=== PATIENT | female | born 1985 | race Caucasian/White ===

== ENCOUNTER 2022-10-27 22:17 | Emergency (ER) | payer OTHER, SELFPAY ==
[2022-10-27 22:19] VITALS: BP 206/115; PULSE 115; RESP 18; TEMP 36.9; O2SAT 97; BMI 37.5
[2022-10-28 00:06] VITALS: BP 168/112; PULSE 122; RESP 18; O2SAT 96
[2022-10-28 00:19] LABS: Add Urine Microscopic? YES; Bilirubin Urine Neg (Negative); Blood Urine 2+ (Negative); Glucose Urine UA Norm (Normal); Ketones Urine Negative (Negative); Leukocyte Esterase Urine 2+ (Negative); Nitrate Urine Negative (Negative); Protein Urine 3+ (Negative); Urine Appearance Cloudy (CLEAR); Urine Color Yellow (Yellow); Urobilinogen Urine Norm (Negative); pH Urine 5 (5-7)
[2022-10-28 00:20] LABS: Bacteria Urine 1+ /hpf; RBC Urine 0-4 /hpf (0-2); Squamous Epithelial Cell Urine 25-40 /hpf (0-5); WBC Urine 55-80 /hpf (0-5)
[2022-10-28 00:22] LABS: Add Urine Culture? No
[2022-10-28 00:34] LABS: HCG, Serum Qual Negative (Negative)
[2022-10-28] MEDS: ondansetron 2 mg/ML SDV 2 mL 8 MG IVP (00:35)
[2022-10-28 00:37] VITALS: PULSE 105; RESP 16; O2SAT 95
[2022-10-28 00:43] LABS: Alanine Aminotransferase 18 U/L (0-33); Albumin Level 3.6 g/dL (3.5-5.2); Alkaline Phosphatase 74 U/L (35-105); Blood Urea Nitrogen 22 mg/dL (6-20); Calcium 10.2 mg/dL (8.5-10.5); Carbon Dioxide 20 mmol/L (22-29); Chloride 101 mmol/L (98-107); Creatinine Clr Calc Pharmacy 122.3645; Globulin 3.1 g/dL (1.3-4.6); Glomerular Filtration Rate 80.7 mL/min (90-130); Glucose 120 mg/dL (65-115); Lipase 24 U/L (13-60); Osmolality Calculated 289 mOsm/kg (285-295); Sodium 137 mmol/L (136-145); Total Bilirubin 0.2 mg/dL (0.15-1.2); Total Protein 6.7 g/dL (6.6-8.7)
--- NOTE | 2022-10-28 00:44 | W.ED.ABDPA2 ---
HPI - Abdominal Pain General: Chief Complaint: Abdominal Pain Stated Complaint: Abd pain, vomiting Time Seen by Provider: 10/28/22 00:03 History of Present Illness: Presents to the ER with complaints of pancreatitis flareup. She is having nausea vomiting and abdominal pain similar to the ones previous in the past. Patient has had been admitted for these before. Patient states this is exact like once in the past with no difference. This been going on for about 3 to 4 days and continuously gets worse. Patient has tried a clear liquid diet to no avail. Review of Systems General: Reports: 10 or more systems reviewed and unremarkable except in HPI and below Physical Exam Const: COMMON NORMALS: no acute distress, average body habitus, patient oriented x3, no limitations, healthy appearing, alert and well nourished HENMT: COMMON NORMALS: normocephalic, atraumatic, hearing grossly normal bilaterally, external ears normal, Normal external nose present and moist oral mucous membranes HEAD & SCALP: normocephalic and atraumatic NOSE: Normal external nose present EXTERNAL EAR: Yes external ears normal Eye: COMMON NORMALS: Equal, round and reactive pupils present, EOMs intact bilaterally, conjunctivae normal and no scleral icterus CONJUNCTIVA: Yes conjunctivae normal PUPIL: Yes Equal, round and reactive pupils present Neck/C-Spine: COMMON NORMALS: full ROM, no lymphadenopathy, supple, no meningeal signs, no JVD and Thyroid normal THYROID: Thyroid normal Chest: COMMONS NORMALS: normal inspection of the chest and normal palpation of entire chest wall Resp: COMMON NORMALS: normal respiratory effort, No retractions, No use of accessory muscles and clear to auscultation bilaterally AUSCULTATION: clear to auscultation bilaterally Cardio: COMMON NORMALS: no JVD, regular rate, regular rhythm, S1 normal heart sound present, S2 normal heart sound present, No gallops present (Cardio), No clicks present (Cardio), No murmurs present (Cardio) and No rub (Cardio) RATE: regular rate RHYTHM: regular rhythm HEART SOUNDS: S1 normal heart sound present and S2 normal heart sound present GI: COMMON NORMALS: Normal to inspection, nondistended, normoactive bowel sounds present, Soft to palpation, No hepatosplenomegaly present and no masses PALPATION: Yes Soft to palpation, Yes Tenderness to palpation present (GI) and Yes No hepatosplenomegaly present : COMMON NORMALS: Yes no CVA tenderness BLADDER/KIDNEY EXAM: Yes no CVA tenderness Back/Pelvis: COMMON NORMALS: no CVA tenderness Neuro: COMMON NORMALS: patient oriented x3 SENSORIUM/ORIENTATION: Yes alert MENINGEAL SIGNS: Yes no meningeal signs Course Vital Signs: Vital signs: Vital Signs Temperature 98.4 F 10/27/22 22:19 Pulse Rate 93 10/28/22 01:44 Respiratory Rate 23 H 10/28/22 01:44 Blood Pressure 179/92 10/28/22 01:44 Pulse Oximetry 97 10/28/22 01:44 Oxygen Delivery Me thod Room Air 10/27/22 22:19 MDM - Abdominal Pain Medical Decision Making Patient presents to the ER with complaints of abdominal pain nausea vomiting consistent with her previous attacks of acute pancreatitis. Is been going on for 3 to 4 days patient has tried liquid diet. With no avail. Physical exam was performed lab work was obtained which showed white count 13.4 and normal lipase. Contaminated urine sample. Patient was given Toradol and fentanyl for pain as well as Zofran for nausea. Patient is feeling much better after 1 L bolus normal saline. Patient is agreeable to go home. Patient be discharged home Differential Diagnosis Likely abdominal pain and pancreatitis; Unlikely acute appendicitis, calculus of kidney, constipation, diverticulitis, endometriosis, gastroenteritis or small bowel obstruction Medical Records I reviewed the patient's medical records. Lab Data I reviewed the patient's lab results. 10/28/22 00:40 10/27/22 23:37 Labs/Radiology: Laboratory Results WBC 13.4 10^3/uL (4.0-10.0) H 10/28/22 00:40 Corrected WBC Cancelled 10/27/22 23:37 RBC 4.31 10^6/uL (4.1-5.3) 10/28/22 00:40 Hgb 12.7 g/dL (11.5-15.3) 10/28/22 00:40 Hct 37.3 % (37.0-47.0) 10/28/22 00:40 MCV 86.5 fl (81-99) 10/28/22 00:40 MCH 29.5 pg (28.0-34.0) 10/28/22 00:40 MCHC 34.0 g/dL (30.0-36.0) 10/28/22 00:40 RDW 13.0 % (12.1-15.1) 10/28/22 00:40 Plt Count 406 10^3/cmm (130-400) H 10/28/22 00:40 MPV 8.8 fL (7.4-10.4) 10/28/22 00:40 Gran % Cancelled 10/27/22 23:37 Neut % (Auto) 70.6 % 10/28/22 00:40 Lymph % (Auto) 21.6 % 10/28/22 00:40 [place] % (Auto) 4.9 % 10/28/22 00:40 Eos % (Auto) 1.6 % 10/28/22 00:40 Baso % (Auto) 0.6 % 10/28/22 00:40 Neut # (Auto) 9.42 10^3/uL (1.8-7.7) H 10/28/22 00:40 Lymph # (Auto) 2.9 10^3/uL (0.8-4.8) 10/28/22 00:40 [place] # (Auto) 0.7 10^3/uL (0.2-0.9) 10/28/22 00:40 Eos # (Auto) 0.2 10^3/uL (0.0-0.8) 10/28/22 00:40 Baso # (Auto) 0.1 10^3/uL (0.0-0.1) 10/28/22 00:40 Absolute Gran (auto) Cancelled 10/27/22 23:37 Nucleated RBC % (auto) 0 % 10/28/22 00:40 Nucleated RBCs # 0.0 /100WBC 10/28/22 00:40 Sodium 137 mmol/L (136-145) 10/27/22 23:37 Potassium 4.3 mmol/L (3.5-5.1) 10/27/22 23:37 Chloride 101 mmol/L (98-107) 10/27/22 23:37 Carbon Dioxide 20 mmol/L (22-29) L 10/27/22 23:37 Anion Gap 20.3 (5-19) H 10/27/22 23:37 BUN 22 mg/dL (6-20) H 10/27/22 23:37 Creatinine 0.8 mg/dL (0.5-0.9) 10/27/22 23:37 GFR Calculation 80.7 mL/min (90-130) L 10/27/22 23:37 Glucose 120 mg/dL (65-115) H 10/27/22 23:37 Calculated Osmolality 289 mOsm/kg (285-295) 10/27/22 23:37 Calcium 10.2 mg/dL (8.5-10.5) 10/27/22 23:37 Total Bilirubin 0.2 mg/dL (0.15-1.2) 10/27/22 23:37 AST 21 U/L (0-32) 10/27/22 23:37 ALT 18 U/L (0-33) 10/27/22 23:37 Alkaline Phosphatase 74 U/L (35-105) 10/27/22 23:37 Total Protein 6.7 g/dL (6.6-8.7) 10/27/22 23:37 Albumin 3.6 g/dL (3.5-5.2) 10/27/22 23:37 Globulin 3.1 g/dL (1.3-4.6) 10/27/22 23:37 Lipase 24 U/L (13-60) 10/27/22 23:37 HCG, Qual Negative (Negative) 10/27/22 23:37 Urine Color Yellow (Yellow) 10/27/22 Unknown Urine Appearance Cloudy (CLEAR) A 10/27/22 Unknown Urine pH 5 (5-7) 10/27/22 Unknown Ur Specific [place] 1.020 (1.005-1.030) 10/27/22 Unknown Urine Protein 3+ (Negative) H 10/27/22 Unknown Urine Glucose (UA) Norm (Normal) 10/27/22 Unknown Urine Ketones Negative (Negative) 10/27/22 Unknown Urine Blood 2+ (Negative) H 10/27/22 Unknown Urine Nitrate Negative (Negative) 10/27/22 Unknown Urine Bilirubin Neg (Negative) 10/27/22 Unknown Urine Urobilinogen Norm mg/dL (Negative) 10/27/22 Unknown Ur Leukocyte Esterase 2+ (Negative) H 10/27/22 Unknown Urine RBC 0-4 /hpf (0-2) H 10/27/22 Unknown Urine WBC 55-80 /hpf (0-5) H 10/27/22 Unknown Ur Squamous Epith Cells 25-40 /hpf (0-5) H 10/27/22 Unknown Amorphous Sediment Not Reportable 10/27/22 Unknown Urine Bacteria 1+ /hpf (NONE) H 10/27/22 Unknown Urine Yeast 1+ /hpf H 10/27/22 Unknown Discharge Plan Discharge Patient Disposition: Home Clinical Impression: Nausea & vomiting Qualifiers: Vomiting type: unspecified Qualified Code(s): R11.2 - Nausea with vomiting, unspecified Abdominal pain Qualifiers: Abdominal location: unspecified location Qualified Code(s): R10.9 - Unspecified abdominal pain Condition: Stable Discharge Orders: Discharge ED (Routine); Ordered 10/28/22 Ordered By: Twan Tello Discharge Diet: Advance as tolerated and Clear Liquid Discharge Activity: Resume usual activity Patient Instructions: Abdominal Pain (ED) Activity Restrictions/Additional Instructions: Please resume your usual activity advance your diet as tolerated. Please start with a clear liquid diet work your way to a full liquid diet then soft mechanical onto a normal diet. If you have any uncontrolled nausea vomiting abdominal pain feel free to follow back up with your family practice doc and/or return to emergency room for further evaluation and treatment. Coding Level of Care Code ED Clock And Watch Assembler for [facility] To
[2022-10-28 00:45] LABS: Anion Gap 20.3 (5-19); Aspartate Amino Transferase 21 U/L (0-32); Potassium 4.3 mmol/L (3.5-5.1)
[2022-10-28 00:46] LABS: Basophils # 0.1 10^3/uL (0.0-0.1); Basophils % 0.6 %; Eosinophils # 0.2 10^3/uL (0.0-0.8); Eosinophils % 1.6 %; Hematocrit 37.3 % (37.0-47.0); Hemoglobin 12.7 g/dL (11.5-15.3); Lymphocytes # 2.9 10^3/uL (0.8-4.8); Lymphocytes % 21.6 %; Mean Corpuscular Hemoglobin 29.5 pg (28.0-34.0); Mean Corpuscular Volume 86.5 fl (81-99); Mean Platelet Volume 8.8 fL (7.4-10.4); Monocytes # 0.7 10^3/uL (0.2-0.9); Monocytes % 4.9 %; Neutrophils # 9.42 10^3/uL (1.8-7.7); Neutrophils % 70.6 %; Nucleated Red Blood Cells % 0 %; Platelet Count 406 10^3/cmm (130-400); Red Blood Count 4.31 10^6/uL (4.1-5.3); White Blood Count 13.4 10^3/uL (4.0-10.0)
[2022-10-28] MEDS: ketorolac 30 mg/mL INJ IVP (01:18)
[2022-10-28] MEDS: sodium chloride 0.9% 1,000 ML 999 ML IV (01:18)
[2022-10-28 01:43] VITALS: RESP 21
[2022-10-28] MEDS: fentaNYL 50 mcg/mL INJ 2mL IVP (01:43)
[2022-10-28 01:44] VITALS: BP 179/92; PULSE 93; RESP 23; O2SAT 97
[2022-10-28 03:12] VITALS: BP 179/109; PULSE 89; RESP 20; O2SAT 95
--- NOTE | 2022-10-28 13:16 | DCPLANNER ---
TCM called patient due to no primary care physician - patient does not live in the area.
== END 2022-10-28 03:13 | disposition home or self-care (01) ==
PROVIDERS: Nurse Practitioner Family; Emergency Provider Emergency Medicine
DX: R11.2 Nausea with vomiting, unspecified (principal); R10.9 Unspecified abdominal pain
CPT/HCPCS: 80053; 81001; 81003; 83690; 84703; 85025; 96374; 96375; 99284; J1885; J2405; J3010; J7030

== ENCOUNTER 2023-03-10 23:59 | Inpatient (IN) | payer OTHER, SELFPAY ==
[2023-03-11] VITALS (67 sets, daily range): BP systolic 104–216; BP diastolic 61–124; PULSE 112–141; RESP 11–41; TEMP 37.1–39.6; O2SAT 88–97; BMI 43.0
--- NOTE | 2023-03-11 00:04 | CTR_ITS ---
PROCEDURE INFORMATION: Exam: CT Head Without Contrast Exam date and time: 03/11/2023 12:26 AM Age: 37 years old Clinical indication: Altered mental status/memory loss; Confusion or disorientation; Patient HX: Patient arrived via EMS initially for possible stroke. Patient appears to be in acute delirium with glucose over 500. TECHNIQUE: Imaging protocol: Computed tomography of the head without contrast. Radiation optimization: All CT scans at this facility use at least one of these dose optimization techniques: automated exposure control; mA and/or kV adjustment per patient size (includes targeted exams where dose is matched to clinical indication); or iterative reconstruction. REPORTING DATA: Count of CT and Cardiac NM exams in prior 12 months: This patient has received 0 known CTs and 0 known cardiac nuclear medicine studies in the 12 months prior to the current study. COMPARISON: No relevant prior studies available. RADIATION DOSE METRICS: Total DLP (mGy-cm): 881.88 FINDINGS: Brain: No acute intracranial hemorrhage or mass effect. No definite acute infarct by CT. MRI would be more sensitive/specific for detection, as clinically directed. Cerebral ventricles: Ventricle size is normal for age. Paranasal sinuses: 20 mm retention cyst or polyp in the inferior right maxillary sinus. Minimal mucosal thickening in the sphenoid sinus. Mastoid air cells: No significant acute finding. Bones/joints: No definite acute skull fracture. Soft tissues: No significant acute finding. CT/CT head wo con* [id number] IMPRESSION: 1. No acute intracranial hemorrhage or mass effect. 2. No definite acute infarct by CT, see above. 3. Other findings discussed above.
--- NOTE | 2023-03-11 00:10 | ED_ITS ---
HPI - Altered Mental Status General: Chief Complaint: Altered Mental Status Stated Complaint: CONFUSED Time Seen by Provider: 03/11/23 00:10 History of Present Illness: 37-year-old female presents emergency department with her spouse. Spouse states that she has been having chronic back pain for many years but over the last 4 days has not been moving around very much because of her chronic back pain. He states he also is a insulin-dependent diabetic and that her insulin pump mal functioned 3 days ago and they removed it. The patient states that she may have also taken a delta 8 gummy to try to control her pain. He states that she has had a change in mental status that he initially noted at approximately 11 PM tonight. He states the patient is confused after waking up from sleep. He states that she is confused to her location but is responsive to person. He states that she has a longstanding history of chronic pancreatitis. He denies known injury or trauma to the patient. He states that she does not take recreational or illicit drugs and she does not drink. Review of Systems General: Reports: ROS unobtainable due to medical condition Physical Exam Const: ORIENTATION/CONSCIOUSNESS: Yes oriented to person and Yes confused; not oriented to place and not oriented to time HENMT: COMMON NORMALS: normocephalic, atraumatic and moist oral mucous membranes HEAD & SCALP: normocephalic and atraumatic Eye: COMMON NORMALS: Equal, round and reactive pupils present and EOMs intact bilaterally PUPIL: Yes Equal, round and reactive pupils present Neck/C-Spine: COMMON NORMALS: full ROM, no lymphadenopathy, supple and no meningeal signs Chest: COMMONS NORMALS: normal inspection of the chest and normal palpation of entire chest wall Resp: COMMON NORMALS: normal respiratory effort, No use of accessory muscles and clear to auscultation bilaterally AUSCULTATION: clear to auscultation bilaterally Cardio: COMMON NORMALS: regular rhythm RATE: tachycardic (147) RHYTHM: regular rhythm GI: COMMON NORMALS: Normal to inspection, nondistended, normoactive bowel sounds present, Soft to palpation and non-tender PALPATION: Yes Soft to palpation Extremity: COMMON NORMALS: normal to inspection, full ROM and capillary refill normal Neuro: SENSORIUM/ORIENTATION: Yes oriented to person, No oriented to place and No oriented to time MENINGEAL SIGNS: Yes no meningeal signs SPEECH: speech normal SENSORY EXAM: Yes extremities and Trunk sensory exam abnormal MOTOR EXAM: 5/5 motor strength present throughout and No Pronator motor function pr esent PUPIL EXAM: Normal pupillary reactivity/response: bilateral Psych: COMMON NORMALS: mental status grossly normal, cooperative, speech normal and activity/motor behavior normal SPEECH: Yes normal speech Skin: COMMON NORMALS: no rashes or lesions noted GENERAL SKIN EXAM: no rashes or lesions noted Course ED course: I discussed the laboratory findings as well as the vital signs of the patient in the expected plan of care with Dr. Cohen who will assume care of this patient. I did advise Dr. Cohen that the patient had elevated white blood cell count of 17.24, sodium of 118 and chloride of 81 carbon dioxide level of 16 anion gap of 25.4 consistent with diabetic ketoacidosis. I did advise him the initial blood glucose was 525 and the patient did receive 10 units of IV insulin the patient does have a 20-gauge IV access in her right AC. I did advise him that we consented the patient for central line and suspect he will start the insulin DKA protocol. I advised Dr. Cohen the patient also has a elevated lactic acid level as well as a elevated procalcitonin. I did advise him that the patient also received labetalol IV for her hypertension and her sinus tachycardia. Patient is also receiving IV fluid rehydration. Vital Signs: Vital signs: Vital Signs Temperature 103.2 F H 03/11/23 00:09 Pulse Rate 131 H 03/11/23 01:08 Respiratory Rate 24 H 03/11/23 01:08 Blood Pressure 216/124 03/11/23 01:08 Pulse Oximetry 91 03/11/23 01:08 Oxygen Delivery Me thod Room Air 03/11/23 00:09 MDM - Altered Mental Status Medical Decision Making Physical exam completed and documented I will obtain a CBC and a CMP as well as a [id number] glucose as I suspect her altered mental status is due to hyperglycemia. She does have a history of recurrent urinary tract infections pancreatitis I will obtain a urinalysis and lipase as well. Given the patient's 's concern of her sudden onset of mental status changes I will obtain a CT scan of her head to rule out intracranial pathology. I will provide her IV fluid rehydration. Medical Records I reviewed the patient's medical records. Lab Data I reviewed the patient's lab results. 03/11/23 00:20 03/11/23 00:[address] 03/11/23 00:04 IMPRESSION: 1. No acute intracranial hemorrhage or mass effect. 2. No definite acute infarct by CT, see above. 3. Other findings discussed above. Laboratory Results WBC 17.24 10^3/uL (3.29-11.43) H 03/11/23 00:20 RBC 4.40 10^6/uL (3.85-5.65) 03/11/23 00:20 Hgb 13.00 g/dL (11.27-16.99) 03/11/23 00:20 Hct 38.0 % (36-47) 03/11/23 00:20 MCV 86.4 fl (85-98) 03/11/23 00:20 MCH 29.5 pg (27-33) 03/11/23 00:20 MCHC 34.2 g/dL (30-55) 03/11/23 00:20 RDW 12.5 % (12.1-15.1) 03/11/23 00:20 Plt Count 278 10^3/cmm (157-399) 03/11/23 00:20 MPV 9.1 fL (7.4-10.4) 03/11/23 00:20 Neut % (Auto) 91.3 % 03/11/23 00:20 Lymph % (Auto) 2.8 % 03/11/23 00:20 [place] % (Auto) 4.3 % 03/11/23 00:20 Eos % (Auto) 0.4 % 03/11/23 00:20 Baso % (Auto) 0.3 % 03/11/23 00:20 Neut # (Auto) 15.73 10^3/uL (1.8-7.7) H 03/11/23 00:20 Lymph # (Auto) 0.5 10^3/uL (0.8-4.8) L 03/11/23 00:20 [place] # (Auto) 0.7 10^3/uL (0.2-0.9) 03/11/23 00:20 Eos # (Auto) 0.1 10^3/uL (0.0-0.8) 03/11/23 00:20 Baso # (Auto) 0.1 10^3/uL (0.0-0.1) 03/11/23 00:20 Nucleated RBC % (auto) 0 % 03/11/23 00:20 Nucleated RBCs # 0.0 /100WBC 03/11/23 00:20 Specimen Type Arterial 03/11/23 00:40 Sample Site Brachial, left 03/11/23 00:40 ABG pH 7.49 (7.35-7.45) H 03/11/23 00:40 ABG pCO2 23.1 mmHg (35-45) L 03/11/23 00:40 ABG pO2 61.8 mmHg (80.0-100.0) L 03/11/23 00:40 ABG HCO3 17.7 mmol/L (22-26) L 03/11/23 00:40 ABG Base Excess -4.1 mmol/L (-2.0-2.0) L 03/11/23 00:40 Tomer Test N/a 03/11/23 00:40 Hematocrit 34.5 % (37-47) L 03/11/23 00:40 O2 Delivery Device None 03/11/23 00:40 FiO2 21.0 % 03/11/23 00:40 Adjuster Piano Action ID [id number] 03/11/23 00:40 Sodium 118 mmol/L (136-145) L* 03/11/23 00:20 Potassium 4.4 mmol/L (3.5-5.1) 03/11/23 00:20 Chloride 81 mmol/L (98-107) L 03/11/23 00:20 Carbon Dioxide 16 mmol/L (22-29) L 03/11/23 00:20 Anion Gap 25.4 (5-19) H 03/11/23 00:20 BUN 15 mg/dL (6-20) 03/11/23 00:20 Creatinine 1.2 mg/dL (0.5-0.9) H 03/11/23 00:20 GFR Calculation 50.6 mL/min (90-130) L 03/11/23 00:20 Glucose 525 mg/dL (65-115) H* 03/11/23 00:20 POC Glucose 527 mg/dL (70-110) H* 03/11/23 00:22 Calculated Osmolality 271 mOsm/kg (285-295) L 03/11/23 00:20 Lactic Acid 4.7 mmol/L (0.5-2.2) H* 03/11/23 00:20 Calcium 8.9 mg/dL (8.5-10.5) 03/11/23 00:20 Magnesium 1.3 mg/dL (1.7-2.3) L 03/11/23 00:20 Total Bilirubin 0.6 mg/dL (0.15-1.2) 03/11/23 00:20 AST 5 U/L (0-32) 03/11/23 00:20 ALT < 5 U/L (0-33) 03/11/23 00:20 Alkaline Phosphatase 99 U/L (35-105) 03/11/23 00:20 Total Protein 7.0 g/dL (6.6-8.7) 03/11/23 00:20 Albumin 2.9 g/dL (3.5-5.2) L 03/11/23 00:20 Globulin 4.1 g/dL (1.3-4.6) 03/11/23 00:20 Procalcitonin 10.88 ng/mL (0-0.5) H 03/11/23 00:20 TSH 0.73 uIU/mL (0.27-4.20) 03/11/23 00:20 HCG, Qual Negative (Negative) 03/11/23 00:20 Urine Color Cancelled 03/11/23 01:05 Urine Color Yellow (Yellow) 03/11/23 01:05 Urine Appearance Cancelled 03/11/23 01:05 Urine Appearance Cloudy (CLEAR) A 03/11/23 01:05 Urine pH 6 (5-7) 03/11/23 01:05 Urine pH Cancelled 03/11/23 01:05 Ur Specific [place] 1.010 (1.005-1.030) 03/11/23 01:05 Ur Specific [place] Cancelled 03/11/23 01:05 Urine Protein 3+ (Negative) H 03/11/23 01:05 Urine Protein Cancelled 03/11/23 01:05 Urine Glucose (UA) 4+ (Normal) H 03/11/23 01:05 Urine Glucose (UA) Cancelled 03/11/23 01:05 Urine Ketones 3+ (Negative) H 03/11/23 01:05 Urine Ketones Cancelled 03/11/23 01:05 Urine Blood 3+ (Negative) H 03/11/23 01:05 Urine Blood Cancelled 03/11/23 01:05 Urine Nitrate Cancelled 03/11/23 01:05 Urine Nitrate Negative (Negative) 03/11/23 01:05 Urine Bilirubin Cancelled 03/11/23 01:05 Urine Bilirubin Neg (Negative) 03/11/23 01:05 Prot Sulfosalicylic Acd Cancelled 03/11/23 01:05 Urine Urobilinogen Cancelled 03/11/23 01:05 Urine Urobilinogen Neg mg/dL (Negative) 03/11/23 01:05 Ur Leukocyte Esterase Cancelled 03/11/23 01:05 Ur Leukocyte Esterase Negative (Negative) 03/11/23 01:05 Urine RBC 5-10 /hpf (0-2) H 03/11/23 01:05 Urine WBC 5-10 /hpf (0-5) H 03/11/23 01:05 Ur Squamous Epith Cells 5-10 /hpf (0-5) H 03/11/23 01:05 Amorphous Sediment 2+ /hpf 03/11/23 01:05 Urine Bacteria 1+ /hpf (NONE) H 03/11/23 01:05 Urine Opiates Screen Negative ng/mL (Negative) 03/11/23 01:05 Ur Barbiturates Screen Negative ng/mL (Negative) 03/11/23 01:05 Ur Phencyclidine Scrn Negative ng/mL (Negative) 03/11/23 01:05 Ur Amphetamines Screen Negative ng/mL (Negative) 03/11/23 01:05 U Benzodiazepines Scrn Negative ng/mL (Negative) 03/11/23 01:05 Urine Cocaine Screen Negative ng/mL (Negative) 03/11/23 01:05 U Marijuana (THC) Screen Positive ng/mL (Negative) H 03/11/23 01:05 XR interpretation done by ED provider, pending radiology final review Discharge Plan Discharge Condition: Stable Patient Instructions: Hyponatremia (ED), Benzodiazepine Use Disorder (ED), Dementia (ED), Non-diabetic Hypoglycemia (ED), Hypoglycemia in a Person with Diabetes (ED), Concussion (ED), Alcohol Intoxication (ED), Subarachnoid He morrhage (GEN), Altered Mental Status (ED) Coding Level of Care Code ED Hiv Counselor for [facility] To
[2023-03-11 00:26] LABS: Glucose Point of Care 527 mg/dL (70-110)
[2023-03-11 00:33] LABS: Basophils # 0.1 10^3/uL (0.0-0.1); Basophils % 0.3 %; Eosinophils # 0.1 10^3/uL (0.0-0.8); Eosinophils % 0.4 %; Lymphocytes # 0.5 10^3/uL (0.8-4.8); Lymphocytes % 2.8 %; Mean Corpuscular HGB Conc 34.2 g/dL (30-55); Mean Corpuscular Hemoglobin 29.5 pg (27-33); Mean Corpuscular Volume 86.4 fl (85-98); Mean Platelet Volume 9.1 fL (7.4-10.4); Monocytes # 0.7 10^3/uL (0.2-0.9); Monocytes % 4.3 %; Neutrophils # 15.73 10^3/uL (1.8-7.7); Neutrophils % 91.3 %; Nucleated Red Blood Cells % 0 %; Platelet Count 278 10^3/cmm (157-399); Red Cell Distribution Width 12.5 % (12.1-15.1); White Blood Count 17.24 10^3/uL (3.29-11.43)
[2023-03-11 00:44] LABS: ABG PCO2 23.1 mmHg (35-45); ABG PH Result 7.49 (7.35-7.45); Arterial Blood Gas Hematocrit 34.5 % (37-47); Base Excess ABG -4.1 mmol/L (-2.0-2.0); HCO3 ABG 17.7 mmol/L (22-26); PO2 ABG 61.8 mmHg (80.0-100.0)
[2023-03-11 00:50] LABS: HCG, Serum Qual Negative (Negative)
[2023-03-11 01:00] LABS: Albumin Level 2.9 g/dL (3.5-5.2); Alkaline Phosphatase 99 U/L (35-105); Anion Gap 25.4 (5-19); Blood Urea Nitrogen 15 mg/dL (6-20); Calcium 8.9 mg/dL (8.5-10.5); Carbon Dioxide 16 mmol/L (22-29); Chloride 81 mmol/L (98-107); Globulin 4.1 g/dL (1.3-4.6); Glomerular Filtration Rate 50.6 mL/min (90-130); Magnesium 1.3 mg/dL (1.7-2.3); Osmolality Calculated 271 mOsm/kg (285-295); Potassium 4.4 mmol/L (3.5-5.1); Thyroid Stimulating Hormone 0.73 uIU/mL (0.27-4.20); Total Bilirubin 0.6 mg/dL (0.15-1.2)
[2023-03-11 01:09] LABS: Glucose 525 mg/dL (65-115); Sodium 118 mmol/L (136-145)
[2023-03-11 01:12] LABS: Alanine Aminotransferase < 5 U/L (0-33); Aspartate Amino Transferase 5 U/L (0-32)
[2023-03-11 01:23] LABS: Bilirubin Urine Neg (Negative); Blood Urine 3+ (Negative); Glucose Urine UA 4+ (Normal); Ketones Urine 3+ (Negative); Leukocyte Esterase Urine Negative (Negative); Nitrate Urine Negative (Negative); Protein Urine 3+ (Negative); Urine Appearance Cloudy (CLEAR); Urine Color Yellow (Yellow); Urobilinogen Urine Neg (Negative); pH Urine 6 (5-7)
[2023-03-11 01:24] LABS: Add Urine Culture? Yes; Amorphous Sediment Urine 2+ /hpf; Bacteria Urine 1+ /hpf
[2023-03-11 01:26] LABS: Amphetamines Screen Urine Negative (Negative); Barbiturates Screen Urine Negative (Negative); Benzodiazepines Screen Urine Negative (Negative); Cocaine Screen Urine Negative (Negative); Opiate Screen Urine Negative (Negative); PCP Screen Urine Negative (Negative); THC Screen Urine Positive (Negative)
[2023-03-11 01:27] LABS: Lactic Sepsis W/Reflex 4.7 mmol/L (0.5-2.2)
[2023-03-11 01:34] LABS: Procalcitonin 10.88 ng/mL (0-0.5)
[2023-03-11] MEDS: insulin regular-human 100 units/1 mL 10 UNIT IVP (01:43)
[2023-03-11] MEDS: labetalol 5 mg/mL SDV 20mL 20 MG IVP (01:46)
--- NOTE | 2023-03-11 02:08 | CTR_ITS ---
PROCEDURE INFORMATION: Exam: CT Chest With Contrast; Diagnostic Exam date and time: 03/11/2023 2:56 AM Age: 37 years old Clinical indication: Abnormal findings; Abnormal lab test; Other: N/a; Other: Dka/elevated lactic acid; Prior surgery; Surgery date: 6+ months; Surgery type: Alarcon mata. Iud; Patient HX: Fever with elevated wbc and lactic acid. ; Additional info: Fever, leukocytosis, dka, sepsis TECHNIQUE: Imaging protocol: Diagnostic computed tomography of the chest with contrast. Radiation optimization: All CT scans at this facility use at least one of these dose optimization techniques: automated exposure control; mA and/or kV adjustment per patient size (includes targeted exams where dose is matched to clinical indication); or iterative reconstruction. Contrast material: OMNI 350; Contrast volume: 100 ml; Contrast route: INTRAVENOUS (IV); REPORTING DATA: Count of CT and Cardiac NM exams in prior 12 months: This patient has received 0 known CTs and 0 known cardiac nuclear medicine studies in the 12 months prior to the current study. COMPARISON: CR (CHEST, ) 03/11/2023 2:35 AM RADIATION DOSE METRICS: Total DLP (mGy-cm): 1789.7 FINDINGS: Lungs: There are nodular ground-glass opacities seen in the hemithoraces bilaterally in a predominantly peripheral distribution, a pattern that can be seen with cryptogenic organizing pneumonia. Other possibilities including nonspecific interstitial pneumonia, UIP, alveolar proteinosis considerations. Pleural spaces: Unremarkable. No pneumothorax. No pleural effusion. Heart: Unremarkable. No cardiomegaly. No pericardial effusion. Lymph nodes: Unremarkable. No enlarged lymph nodes. Vasculature: Unremarkable. No aortic aneurysm. Bones/joints: [place] rods extend from T2 through L1 stabilizing an S-shaped curvature of the axial skeleton. Soft tissues: Unremarkable. PROCEDURE INFORMATION: Exam: CT Abdomen And Pelvis With Contrast Exam date and time: 03/11/2023 2:56 AM Age: 37 years old Clinical indication: Abnormal findings; Abnormal lab test; Other: N/a; Other: Dka/elevated lactic acid; Prior surgery; Surgery date: 6+ months; Surgery type: Alarcon mata. Iud; Patient HX: Fever with elevated wbc and lactic acid. ; Additional info: Fever, leukocytosis, dka, sepsis TECHNIQUE: Imaging protocol: Computed tomography of the abdomen and pelvis with contrast. Radiation optimization: All CT scans at this facility use at least one of these dose optimization techniques: automated exposure control; mA and/or kV adjustment per patient size (includes targeted exams where dose is matched to clinical indication); or iterative reconstruction. Contrast material: OMNI 350; Contrast volume: 100 ml; Contrast route: INTRAVENOUS (IV); REPORTING DATA: Count of CT and Cardiac NM exams in prior 12 months: This patient has received 0 known CTs and 0 known cardiac nuclear medicine studies in the 12 months prior to the current study. COMPARISON: CR (CHEST, ) 03/11/2023 2:35 AM RADIATION DOSE METRICS: Total DLP (mGy-cm): 1789.7 FINDINGS: Liver: There is mild hypoattenuation of the hepatic parenchyma with fatty infiltration. The liver is prominent measuring approximately 25 cm craniocaudal dimension. Gallbladder and bile ducts: Normal. No calcified stones. No ductal dilation. Pancreas: Normal. No ductal dilation. Spleen: Normal. No splenomegaly. Adrenal glands: Normal. No mass. Kidneys and ureters: Normal. No hydronephrosis. Stomach and bowel: Unremarkable. No obstruction. No mucosal thickening. Appendix: No evidence of appendicitis. Intraperitoneal space: Unremarkable. No free air. No significant fluid collection. Vasculature: Unremarkable. No abdominal aortic aneurysm. Lymph nodes: Unremarkable. No enlarged lymph nodes. Urinary bladder: Unremarkable as visualized. Reproductive: An IUD is present. Bones/joints: Unremarkable. No acute fracture. Soft tissues: Unremarkable. CT/CT chest abdpel w/*[id number] IMPRESSION: Nodular ground-glass opacities in a predominantly peripheral distribution compatible with an interstitial pneumonia versus cryptogenic organizing pneumonia. IMPRESSION: 1. There are no acute abdominal findings. 2. Hepatomegaly and mild fatty infiltration of the liver
--- NOTE | 2023-03-11 02:33 | XRR_ITS ---
PROCEDURE INFORMATION: Exam: XR Chest Exam date and time: 03/11/2023 2:35 AM Age: 37 years old Clinical indication: Other vascular access device placement or adjustment; Central line, tunnelled; Prior surgery; Surgery date: 6+ months; Surgery type: Alarcon mata; Patient HX: Check S/P central line placement TECHNIQUE: Imaging protocol: Radiologic exam of the chest. Views: 1 view. COMPARISON: No relevant prior studies available. FINDINGS: Tubes, catheters and devices: A right jugular central venous catheter is present. The tip appears to lie in the SVC, slightly above the junction with the right atrium of the heart. Lungs: No definite CHF/pulmonary edema. Visible lungs appear essentially clear. Pleural spaces: No visible pneumothorax. No definite pleural fluid. Heart/Mediastinum: Heart size appears upper range of normal. Bones/joints: Bilateral spinal rods throughout the thoracic spine. XR/XR chest 1V portable [id number] IMPRESSION: 1. Tube documentation as above. 2. No visible pneumothorax. 3. No definite CHF or pneumonia. 4. Other findings discussed above.
[2023-03-11] MEDS: sodium chloride 0.9% 1,000 ML 999 ML IV ×3 (02:48→06:06)
[2023-03-11] MEDS: cefTRIAXone 1,000 MG in sodium chloride 0.9% (plus) 50 ML 100 MG IV ×2 (02:50→03:19)
[2023-03-11 02:56] LABS: Reflex Lactate Order REFLEX LACTIC ORDERD
[2023-03-11] MEDS: midazolam 1 mg/mL INJ 2 mL 2 MG IVP (03:01)
[2023-03-11] MEDS: iohexol 350 mg/mL 500 mL Btl (per mL) IV (03:08)
[2023-03-11] MEDS: insulin regular-human 250 UNIT in sodium chloride 0.9% 250 ML 12.63 UNIT IV (03:38)
[2023-03-11 03:45] LABS: Glucose Point of Care 526 mg/dL (70-110)
[2023-03-11 03:49] LABS: Lactic Acid level (Lactate) 3.9 mmol/L (0.5-2.2)
[2023-03-11 04:26] LABS: Glucose Point of Care 479 mg/dL (70-110)
[2023-03-11] MEDS: linezolid premix 600 MG/300 ML PREMIX 300 MG IV ×2 (05:04→16:18)
[2023-03-11] MEDS: fentaNYL 50 mcg/mL INJ 2mL 100 MCG IVP (05:04)
--- NOTE | 2023-03-11 05:23 | P.HP_ITS ---
Providers/Chief Complaint Chief Complaint: CONFUSED History of Present Illness 37-year-old lady with history of diabetes on insulin, familial hyperlipidemia, chronic pancreatitis, chronic back pain, insulin pump malfunction 3 days ago but has been using subcutaneous insulin, had acute mental status change with confusion around 11 PM last night, confused after waking up from sleep. states had a ruptured ovarian cyst a week ago. Had respiratory infection with cough 2 months ago. In ER she is found to be in sinus tachycardia 127, 130s, found to have febrile up to 103.2. Tachypnea up to 24. Leukocytosis 17.24. Sodium 115, bicarb 16, anion gap 25.4. BUN 15, creatinine 1.2. Previously normal in October. Glucose 525. Lactic acid 4.7. Magnesium 1.3. Unremarkable liver parameters. Procalcitonin 10.88. Beta hydroxybutyrate pending. ABG 7.49/23.1/61.8/17.7 UA cloudy with 3+ protein, 4+ glucose, 3+ ketones, 3+ blood, 5-10 RBC, 5-10 WBC, 5-10 SEC, 1+ bacteria. 1+ amorphous sediment. UDS positive for marijuana, she was reported to have had some Gummies for pain control. Otherwise negative. Blood cultures collected and pending. Urine sent for culture. Unremarkable TSH. Negative beta-hCG. She received 1 L fluid bolus, started on insulin drip. Central line placed. Received ceftriaxone, linezolid empirically. Vancomycin avoided with history of kidney issues with it in the past. Underwent additional assessment with CT chest abdomen pelvis with contrast with noted nodular GGO a predominantly peripheral distribution compatible with interstitial pneumonia versus cryptogenic organizing pneumonia. Incidentally noted findings including [place] rods, prominent liver with mild fatty infiltration, IUD. She has a headache. denies history of HSV infection in the past. Preparations are being made for lumbar puncture in ER. Review of Systems Const: Reports: other (Feels sleepy.); Denies: fever(s), chills, body aches or malaise ENMT: Denies: throat pain or oral sores Card: Denies: chest pain, edema, pre-syncope or dyspnea on exertion Resp: Denies: dyspnea, productive cough, change in phlegm color or hemoptysis GI: Denies: abdominal pain, nausea, vomiting, diarrhea, constipation, hematochezia or melena : Denies: flank pain, urinary frequency or hematuria Musc: Denies: back pain, joint swelling or joint redness Skin/Breast: Denies: rash or new lesions Neuro: Reports: headache(s) and confusion; Denies: numbness in extremities, weakness in extremities, dizziness or seizure- like activity Medications/Allergies Allergies Allergy/AdvReac Type Severity Reaction Status Date / Time amoxicillin Allergy ADR-Abdominal Verified 10/27/22 22:26 Pain piperacillin [From Zosyn] Allergy ALGY-Hives Verified 10/27/22 22:26 tazobactam [From Zosyn] Allergy ALGY-Hives Verified 10/27/22 22:26 PFSH Acute PFSH: Medical History (Updated 03/11/23 @ 07:12 by Severo Cole MD) Chronic back pain Chronic pancreatitis Diabetes Familial hyperlipidemia Scoliosis Surgical History (Updated 03/11/23 @ 05:55 by Severo Cole MD) Hx of spinal surgery Family History (Updated 03/11/23 @ 05:55 by Severo Cole MD) Other Hyperlipidemia Social History (Updated 03/11/23 @ 05:55 by Severo Cole MD) Household members: spouse Marital status: Vitals/I&O/Wt Last Vital Signs Temp 99.9 F H 03/11/23 04:17 Pulse 120 H 03/11/23 04:17 Resp 33 H 03/11/23 05:04 BP 189/109 03/11/23 04:17 Pulse Ox 97 03/11/23 05:04 O2 Del Method Room Air 03/11/23 04:17 03/10/23 03/10/23 03/11/23 14:59 22:59 06:59 Intake Total 110.946 / 110.946 Balance 110.946 / 110.946 Weight last 48 hrs Weight 124.738 kg Physical Exam Narrative: at bedside. Const: COMMON NORMALS: patient oriented x3 GENERAL APPEARANCE: cooperative NUTRITIONAL APPEARANCE: obese morbidly obese HENMT: COMMON NORMALS: oropharynx normal Neck/C-Spine: COMMON NORMALS: no JVD Resp: COMMON NORMALS: normal respiratory effort and clear to auscultation sveta aterally AUSCULTATION: clear to auscultation bilaterally Cardio: COMMON NORMALS: no JVD, regular rhythm, S1 normal heart sound present, S2 normal heart sound present and No murmurs present (Cardio) RHYTHM: regular rhythm HEART SOUNDS: S1 normal heart sound present and S2 normal heart sound present GI: COMMON NORMALS: Normal to inspection, nondistended, normoactive bowel sounds present, Soft to palpation and non-tender PALPATION: Yes Soft to palpation Extremity: COMMON NORMALS: no joint enlargement and no pedal edema Neuro: COMMON NORMALS: patient oriented x3 and moves all extremities SENSORIUM/ORIENTATION: Yes alert Skin: COMMON NORMALS: no rashes or lesions noted GENERAL SKIN EXAM: no rashes or lesions noted Data 03/11/23 00:20 03/11/23 00:20 Micro: Microbiology 03/11/23 01:50 Blood Culture - Preliminary Blood SPECIMEN COLLECTED 03/11/23 01:50 Blood Culture - Preliminary Blood SPECIMEN COLLECTED A&P Assessment and plan (1) Acute encephalopathy: Woke up around 11 PM last night with encephalopathy, confused, disoriented, no aphasia or dysarthria, otherwise without focal neurologic deficit, with sepsis, source not entirely clear, possible atypical pneumonia, possible UTI, cannot entirely rule out meningitis at this time. No rash, no history of HSV. No aphasia to suggest HSV encephalitis. Possibly acute metabolic encephalopathy secondary to DKA, degree of hyponatremia, ADRY. Hypomagnesemia. Reorient, treat underlying conditions. History obtained from the , ER staff. (2) Severe sepsis: Severe sepsis with leukocytosis 17, sinus tachycardia 120s, fever 103.2. Lactic acidosis 4.7. With endorgan injury with ADRY creatinine 1.2, acute encephalopathy. Source possible UTI, possible atypical pneumonia on CT. Cannot rule out meningitis at this time. Does have mild headache. With confusion, sepsis for now empiric coverage with ceftriaxone, linezolid (vancomycin declined by due to history of kidney issues with it). Blood cultures collected, urine culture sent. Reviewed CBC, ABG, CMP, UA, UDS. Respiratory viral panel obtained, reviewed, negative. Reviewed CT chest abdomen pelvis. Head CT. Discussed with ER physician, aortic condition noted. Attempted lumbar puncture, however, unsuccessful despite utilizing longer needle and ultrasound guidance. Central line placed in ER. She does appear to show some improvement, currently wakes up to voice. Oriented to being in the hospital, told me the year correctly. For now continue empiric antibiotic coverage with ceftriaxone, linezolid. Follow-up cultures. Follow-up condition. (3) ADRY (acute kidney injury): Received fluid challenge. Follow-up renal function. No obstructive uropathy noted on CT. (4) Hypomagnesemia: Received placement. Follow-up magnesium level. (5) Hyponatremia: Combination of pseudohyponatremia with hyperglycemia, DKA, as well as some hypovolemic hypoglycemia. Received fluid challenge. Recheck and follow-up repeat chemistries. (6) Interstitial pneumonia: Possible interstitial pneumonia noted on chest x-ray. Viral panel obtained. Noted negative. Monitor oxygenation. Supportive care. Empirically on ceftriaxone, linezolid for now. We will add azithromycin for atypical coverage. (7) Abnormal urinalysis: Reviewed urinalysis, borderline abnormal UA with possibility of UTI, no obstructive uropathy noted on CT. Urine culture has been sent. For now empirically on ceftriaxone. (8) DKA (diabetic ketoacidosis): Admit to ICU, insulin drip. Continue insulin drip. IVF ordered. Recheck chemistry is requested, follow electrolytes. At risk of electrolyte deficiency, at risk of hypoglycemia. At risk of VTE. Due to prophylaxis. PPI prophylaxis. Plan Discussed condition and plans with her who is at her bedside. Diabetes on insulin, Familial hyperlipidemia, Chronic pancreatitis, Chronic back pain Scoliosis Requesting to confirm home medications. Please review, resume once available. Attestations Medical Necessity Statement*: Admission of over 2 midnights anticipated for assessment management of acute encephalopathy, DKA, severe sepsis with unclear source, ADRY, additional abnormalities as above. Coding Level of Care Code Critical Care >/= 30 minutes Critical care time (in minutes): 45 The high probability of a clinically significant, sudden or life threatening de terioration, as referenced in this documentation, required my full and direct attention, intervention and personal management. The critical care time shown is in addition to time spent performing any reported separately billable procedures and includes the following: [x] Data and vital sign review and interpretation [x ] Patient assessment, examination and intervention [x] Medication orders and management [x] Patient/Family updates as able [x] Care Coordination and Documentation. Diagnoses Acute encephalopathy G93.40 Severe sepsis A41.9; R65.20 ADRY (acute kidney injury) N17.9 Hypomagnesemia E83.42 Hyponatremia E87.1 Interstitial pneumonia J84.9 Abnormal urinalysis R82.90 DKA (diabetic ketoacidosis) E11.10
[2023-03-11 05:33] LABS: Adenovirus Not Detected (NOT DETECT); Chlamydia Pneumoniae Not Detected (NOT DETECT); Coronavirus 229E,HKU1,NL63,OC4 Not Detected (NOT DETECT); Human Metapneumovirus Not Detected (NOT DETECT); Human Rhinovirus/Enterovirus Not Detected (NOT DETECT); Influenza A Not Detected (NOT DETECT); Influenza A H1 Not Detected (NOT DETECT); Influenza A H1-2009 Not Detected (NOT DETECT); Influenza A H3 Not Detected (NOT DETECT); Influenza B Not Detected (NOT DETECT); Mycoplasma Pneumoniae Not Detected (NOT DETECT); Parainfluenza Virus Type 1 Not Detected (NOT DETECT); Parainfluenza Virus Type 2 Not Detected (NOT DETECT); Parainfluenza Virus Type 3 Not Detected (NOT DETECT); Parainfluenza Virus Type 4 Not Detected (NOT DETECT); Respiratory Syncytial Virus A Not Detected (NOT DETECT); Respiratory Syncytial Virus B Not Detected (NOT DETECT); SARS-COV-2 Not Detected (NOT DETECT)
[2023-03-11 05:59] LABS: Glucose Point of Care 439 mg/dL (70-110)
[2023-03-11 07:13] LABS: Glucose Point of Care 376 mg/dL (70-110)
--- NOTE | 2023-03-11 07:58 | PC.PHAR ---
Addendum entered by Shantal Rangel 03/11/23 08:06: pts states the pt had an albuterol inhaler but hasnt used in years states that they dont even know where the albuterol inhaler went Original Note: pt unable to verify medication due to ams-pts states he thinks the pt takes all the medications entered-pts states the pt stop taking lipitor 80mg daily (ext shows last filled 12/27/22 100d/s) and fenofibrate 160mg daily (ext shows last filled 12/25/22 100d/s) a few months ago states the pharmacy still fills also states they havent told the pcp they stop taking-pts states the pt is still taking lisinopril 20mg daily for kidney protection ext shows last filled 07/23/22 100d/s-notes are made in the pharmacy comments
[2023-03-11 08:27] LABS: Glucose Point of Care 326 mg/dL (70-110)
[2023-03-11] MEDS: acetaminophen 1,000 MG/100 ML PIGGYBACK 400 MG IV ×3 (08:37→23:37)
[2023-03-11] MEDS: sodium chloride 0.9% 1,000 ML 200 ML IV (08:54)
[2023-03-11] MEDS: pantoprazole 40 mg SDV IVP (08:55)
[2023-03-11] MEDS: azithromycin 500 MG in sodium chloride 0.9% 250 ML 250 MG IV (08:55)
[2023-03-11 09:12] LABS: Glucose Point of Care 252 mg/dL (70-110)
[2023-03-11 09:45] LABS: Anion Gap 18.3 (5-19); Blood Urea Nitrogen 15 mg/dL (6-20); Calcium 7.7 mg/dL (8.5-10.5); Carbon Dioxide 18 mmol/L (22-29); Chloride 91 mmol/L (98-107); Glomerular Filtration Rate 50.6 mL/min (90-130); Glucose 260 mg/dL (65-115); Magnesium 1.2 mg/dL (1.7-2.3); Osmolality Calculated 268 mOsm/kg (285-295); Potassium 3.3 mmol/L (3.5-5.1); Sodium 124 mmol/L (136-145)
[2023-03-11 09:53] LABS: Phosphorus 0.7 mg/dL (2.5-4.5)
[2023-03-11] MEDS: D5-NS 0.45% + KCL 20 mEq 20 MEQ/1,000 ML BAG 200 MEQ IV ×3 (10:18→20:50)
[2023-03-11] MEDS: sodium chloride 0.9% 1,000 ML 100 ML IV (11:13)
[2023-03-11] MEDS: cefTRIAXone 2,000 MG in sodium chloride 0.9% (plus) 50 ML 100 MG IV ×2 (11:13→23:36)
[2023-03-11] MEDS: potassium chloride premix 100 ML 25 MEQ IV (11:13)
[2023-03-11] MEDS: heparin 5,000 unit/mL INJ 1 mL 5000 UNIT SUBCUT ×2 (11:13→22:25)
[2023-03-11 11:49] LABS: Glucose Point of Care 166 mg/dL (70-110)
[2023-03-11 11:49] LABS: Glucose Point of Care 184 mg/dL (70-110)
[2023-03-11 12:24] LABS: Glucose Point of Care 172 mg/dL (70-110)
[2023-03-11 14:44] LABS: Blood Urea Nitrogen 16 mg/dL (6-20); Calcium 7.1 mg/dL (8.5-10.5); Carbon Dioxide 17 mmol/L (22-29); Chloride 93 mmol/L (98-107); Glomerular Filtration Rate 62.4 mL/min (90-130); Glucose 192 mg/dL (65-115); Osmolality Calculated 262 mOsm/kg (285-295); Sodium 123 mmol/L (136-145)
[2023-03-11 14:47] LABS: Anion Gap 17.3 (5-19); Potassium 4.3 mmol/L (3.5-5.1)
[2023-03-11 15:14] LABS: Glucose Point of Care 199 mg/dL (70-110)
[2023-03-11 15:14] LABS: Glucose Point of Care 203 mg/dL (70-110)
--- NOTE | 2023-03-11 15:39 | P.PN_ITS ---
Subjective Subjective: Patient is unable to speak. She seems to understand. She cannot say any words. Vitals/I&O/Wt Last Vital Signs Temp 103 F H 03/11/23 07:45 Pulse 120 H 03/11/23 14:15 Resp 31 H 03/11/23 14:15 BP 132/85 03/11/23 14:15 Pulse Ox 94 03/11/23 14:15 O2 Del Method Room Air 03/11/23 08:00 03/11/23 03/11/23 03/11/23 06:59 14:59 22:59 Intake Total 1429.884 / 7220.524 1728.304 / 5707.563 2897.967 / 2903.271 Balance 1429.884 / 2752.464 7554.304 / 6239.522 7207.967 / 2903.271 Weight last 48 hrs Weight 124.738 kg Physical Exam 2 Narrative: Morbidly obese white female appears in mild to moderate distress. She is warm and sweaty Heart regular tachycardic normal S1-S2 without murmurs clicks gallops or rubs Lungs clear to auscultation anteriorly Abdomen obese soft diffuse mild tenderness diminished bowel sounds Extremities nonpitting edema in upper and lower extremities Urinary Catheter Management: Skinner: Cath Placed During This Visit: yes Urinary Catheter Date of Insertion: 03/11/23 Urinary Catheter Time of Insertion: 09:05 Data 03/11/23 00:20 03/11/23 13:56 Micro: Microbiology 03/11/23 01:50 Blood Culture - Preliminary Blood SPECIMEN COLLECTED 03/11/23 01:50 Blood Culture - Preliminary Blood SPECIMEN COLLECTED A&P Assessment and plan (1) Acute encephalopathy: Likely multifactorial. Without focal exam at this time we will hold off on imaging of head. (2) DKA (diabetic ketoacidosis): Continue insulin drip. Follow DKA protocol. At risk of electrolyte deficiency, at risk of hypoglycemia. (3) Severe sepsis: empiric coverage with ceftriaxone, linezolid (vancomycin declined by due to history of kidney issues with it). LP unsuccessful. Central line placed in ER. (4) ADRY (acute kidney injury): Received fluid challenge. Follow-up renal function. No obstructive uropathy noted on CT. (5) Hypomagnesemia: Received placement. Follow-up magnesium level. (6) Hyponatremia: Combination of pseudohyponatremia with hyperglycemia, DKA, as well as some hypovolemic hypoglycemia. Received fluid challenge. Recheck and follow-up repeat chemistries. (7) Interstitial pneumonia: Covered with azithromycin for atypical coverage (8) Abnormal urinalysis: Reviewed urinalysis, borderline abnormal UA with possibility of UTI, no obstructive uropathy noted on CT. Urine culture has been sent. For now empirically on ceftriaxone. Plan Discussed condition and plans with [id number]. Her her DKA is resolving electrolytes were replaced appropriately. She will be on D5 half-normal with 40 of K she received a K rider and also given normal saline for sepsis. Diabetes on insulin, Familial hyperlipidemia, Chronic pancreatitis, Chronic back pain Scoliosis Attestations Medical Necessity Statement*: Admission of over 2 midnights anticipated for assessment management of acute encephalopathy, DKA, severe sepsis with unclear source, ADRY, additional abnormalities as above. Coding Level of Care Code Acute Code for [facility] Diagnoses Acute encephalopathy G93.40 DKA (diabetic ketoacidosis) E11.10 Severe sepsis A41.9; R65.20 ADRY (acute kidney injury) N17.9 Hypomagnesemia E83.42 Hyponatremia E87.1 Interstitial pneumonia J84.9 Abnormal urinalysis R82.90
[2023-03-11] MEDS: magnesium sulfate premix 2 GM/50 ML PIGGYBACK IV (16:02)
[2023-03-11 16:15] LABS: Glucose Point of Care 230 mg/dL (70-110)
[2023-03-11] MEDS: ondansetron 2 mg/ML SDV 2 mL 4 MG IVP (16:18)
[2023-03-11] MEDS: potassium phosphate (mEq K) 40 MEQ in sodium chloride 0.9% (100 ml) 100 ML 27.27 MEQ IV (17:13)
[2023-03-11 17:19] LABS: Glucose Point of Care 267 mg/dL (70-110)
[2023-03-11] MEDS: vancomycin 1,500 MG/300 ML PIGGYBACK 200 MG IV (18:11)
[2023-03-11 18:38] LABS: Anion Gap 14.7 (5-19); Blood Urea Nitrogen 15 mg/dL (6-20); Calcium 6.9 mg/dL (8.5-10.5); Carbon Dioxide 17 mmol/L (22-29); Chloride 93 mmol/L (98-107); Glomerular Filtration Rate 55.9 mL/min (90-130); Glucose 294 mg/dL (65-115); Osmolality Calculated 264 mOsm/kg (285-295); Potassium 3.7 mmol/L (3.5-5.1); Sodium 121 mmol/L (136-145)
[2023-03-11 19:24] LABS: Glucose Point of Care 293 mg/dL (70-110)
[2023-03-11] MEDS: morphine 4 mg/mL SDV 1 mL IVP (19:34)
[2023-03-11 20:29] LABS: Glucose Point of Care 294 mg/dL (70-110)
[2023-03-11 21:37] LABS: Glucose Point of Care 283 mg/dL (70-110)
[2023-03-11 22:05] LABS: Blood Urea Nitrogen 14 mg/dL (6-20); Calcium 6.8 mg/dL (8.5-10.5); Carbon Dioxide 18 mmol/L (22-29); Chloride 95 mmol/L (98-107); Glomerular Filtration Rate 55.9 mL/min (90-130); Glucose 260 mg/dL (65-115); Osmolality Calculated 265 mOsm/kg (285-295); Sodium 123 mmol/L (136-145)
[2023-03-11 22:31] LABS: Glucose Point of Care 267 mg/dL (70-110)
[2023-03-11 22:35] LABS: Magnesium 1.7 mg/dL (1.7-2.3)
[2023-03-11 22:43] LABS: Phosphorus 2.9 mg/dL (2.5-4.5)
--- NOTE | 2023-03-11 23:00 | PC.NURSE ---
Physician Communication Patient's anion gap is 14, blood sugar 267 at 2220, and bicarb [address] Cole notified; no new orders received.
[2023-03-11 23:31] LABS: Glucose Point of Care 270 mg/dL (70-110)
[2023-03-12] VITALS (84 sets, daily range): BP systolic 92–182; BP diastolic 46–128; PULSE 101–127; RESP 13–42; TEMP 37.4–38; O2SAT 85–96; BMI 44.9
[2023-03-12] LABS: Phosphorus 2.6 mg/dL (2.5-4.5)
[2023-03-12] MEDS: morphine 4 mg/mL SDV 1 mL IVP ×5 (00:08→17:50)
[2023-03-12] MEDS: ondansetron 2 mg/ML SDV 2 mL 4 MG IVP ×3 (00:09→07:43)
[2023-03-12 02:33] LABS: Magnesium 1.8 mg/dL (1.7-2.3)
[2023-03-12 02:34] LABS: Alanine Aminotransferase 20 U/L (0-33); Albumin Level 1.9 g/dL (3.5-5.2); Alkaline Phosphatase 70 U/L (35-105); Anion Gap 12.7 (5-19); Aspartate Amino Transferase 43 U/L (0-32); Blood Urea Nitrogen 15 mg/dL (6-20); Calcium 6.8 mg/dL (8.5-10.5); Carbon Dioxide 17 mmol/L (22-29); Chloride 97 mmol/L (98-107); Globulin 3.2 g/dL (1.3-4.6); Glomerular Filtration Rate 62.4 mL/min (90-130); Glucose 243 mg/dL (65-115); Osmolality Calculated 265 mOsm/kg (285-295); Potassium 3.7 mmol/L (3.5-5.1); Sodium 123 mmol/L (136-145); Total Bilirubin 0.2 mg/dL (0.15-1.2); Total Protein 5.1 g/dL (6.6-8.7)
[2023-03-12] MEDS: D5-NS 0.45% + KCL 20 mEq 20 MEQ/1,000 ML BAG 200 MEQ IV ×2 (02:34→07:44)
[2023-03-12] MEDS: sodium chloride 0.9% 1,000 ML 100 ML IV (02:35)
[2023-03-12 02:58] LABS: Glucose Point of Care 233 mg/dL (70-110)
[2023-03-12 02:58] LABS: Glucose Point of Care 265 mg/dL (70-110)
[2023-03-12 02:58] LABS: Glucose Point of Care 251 mg/dL (70-110)
[2023-03-12 03:44] LABS: Glucose Point of Care 233 mg/dL (70-110)
--- NOTE | 2023-03-12 05:15 | PC.NURSE ---
Nausea Patient nauseous and vomiting, PRN zofran ordered Q8H and administered at 0008. Dr. Cole contacted and order received to administer 4 mg zofran IVP once now. See MAR for details.
[2023-03-12] MEDS: vancomycin 1,500 MG/300 ML PIGGYBACK 200 MG IV ×2 (05:23→17:47)
[2023-03-12 06:09] LABS: Glucose Point of Care 195 mg/dL (70-110)
[2023-03-12 06:28] LABS: Alanine Aminotransferase 21 U/L (0-33); Albumin Level 1.7 g/dL (3.5-5.2); Alkaline Phosphatase 72 U/L (35-105); Anion Gap 12.9 (5-19); Aspartate Amino Transferase 41 U/L (0-32); Blood Urea Nitrogen 12 mg/dL (6-20); Calcium 6.8 mg/dL (8.5-10.5); Carbon Dioxide 16 mmol/L (22-29); Chloride 98 mmol/L (98-107); Globulin 3.4 g/dL (1.3-4.6); Glomerular Filtration Rate 62.4 mL/min (90-130); Glucose 200 mg/dL (65-115); Magnesium 1.8 mg/dL (1.7-2.3); Osmolality Calculated 261 mOsm/kg (285-295); Phosphorus 2.2 mg/dL (2.5-4.5); Potassium 3.9 mmol/L (3.5-5.1); Sodium 123 mmol/L (136-145); Total Bilirubin 0.2 mg/dL (0.15-1.2); Total Protein 5.1 g/dL (6.6-8.7)
[2023-03-12 06:38] LABS: Glucose Point of Care 210 mg/dL (70-110)
[2023-03-12] MEDS: insulin regular-human 250 UNIT in sodium chloride 0.9% 250 ML IV (06:43)
[2023-03-12 07:54] LABS: Glucose Point of Care 239 mg/dL (70-110)
[2023-03-12 08:34] LABS: Glucose Point of Care 225 mg/dL (70-110)
[2023-03-12] MEDS: azithromycin 500 MG in sodium chloride 0.9% 250 ML 250 MG IV (08:46)
[2023-03-12] MEDS: pantoprazole 40 mg SDV IVP (08:46)
[2023-03-12 09:03] LABS: Glucose Point of Care 266 mg/dL (70-110)
--- NOTE | 2023-03-12 09:44 | PM.PN ---
Subjective Subjective: Admitted 03/11/2023 with acute encephalopathy, severe sepsis, DKA. She was started empirically on ceftriaxone for possible meningitis, Zyvox and azithromycin for interstitial pneumonia per chest x-ray but not on CT chest. She was started on DKA protocol with insulin drip. Central line placed in ER. Respiratory viral panel was negative. CT chest abdomen pelvis was also negative. 03/12/2023. Patient is markedly improved with her mentation. Patient growing Staph aureus and blood; no source identified as of yet. MRI head looking for septic emboli. MRI cervical thoracic and lumbar spine due to patient's hardware. Since patient is hemodynamically stable and improving the MRIs will be done tomorrow morning at 6 AM. Vitals/I&O/Wt Last Vital Signs Temp 99.3 F 03/12/23 05:30 Pulse 121 H 03/12/23 08:30 Resp 24 H 03/12/23 08:46 BP 139/77 03/12/23 08:30 Pulse Ox 91 03/12/23 08:30 O2 Del Method Room Air 03/12/23 05:30 03/11/23 03/12/23 03/12/23 22:59 06:59 14:59 Intake Total 3018.2566 / 4794.5606 2515.563 / 7310.1236 1400.403 / 1400.403 Output Total 825 / 825 1075 / 1900 Balance 2193.2566 / 3969.5606 1440.563 / 5410.1236 1400.403 / 1400.403 Weight last 48 hrs Weight 130.181 kg Weight 124.738 kg Physical Exam Narrative: Morbidly obese white female appears in mild with movement due to back pain. Patient no longer warm to touch Heart regular tachycardic normal S1-S2 without murmurs clicks gallops or rubs Lungs decreased breath sounds and some rhonchi-this is changed from yesterday. Abdomen obese soft mild tenderness in the epigastrium upper abdomen. Normal active bowel sounds Extremities nonpitting edema in upper and lower extremities Skin. Skin of back and abdomen assessed no evidence of cellulitis or abscess. Patient does have yeast infection in the folds in her genitourinary area. Urinary Catheter Management: Skinner: Cath Placed During This Visit: yes Reason for Continuing Indwelling Catheter: Accurate Measurement of Urinary Output in Critically Ill Patients Urinary Catheter Date of Insertion: 03/11/23 Urinary Catheter Time of Insertion: 09:05 Data 03/11/23 00:20 03/12/23 06:04 Micro: Microbiology 03/11/23 01:05 Urine Culture - Final Urine,Clean Catch 03/11/23 01:50 Blood Culture - Preliminary Blood NEGATIVE TO DATE 03/11/23 01:50 Blood Culture - Preliminary Blood Staphylococcus aureus A&P Assessment and plan (1) Acute encephalopathy: Marked improvement today. No focal exam. Since I have ordered MRI of spine I will add MRI of head looking for septic emboli. Likely multifactorial. (2) DKA (diabetic ketoacidosis): Patient remains acidotic with a bicarb of 16-18. Must continue insulin drip. And follow DKA protocol. Electrolytes are being corrected via DKA pathway. Decrease fluids as patient is probably getting fluid overload with a low albumin. D5 half-normal saline with 40 of KCl at 50 cc an hour and normal saline at 75 cc an hour for the sepsis and lactic acidosis. (3) Severe sepsis: empiric coverage with ceftriaxone, changed linezolid to vancomycin (vancomycin declined by due to history of ADRY) due to finding of Staph aureus in the blood yesterday on 03/12/2023. Patient is improved without change. LP unsuccessful. Maintain coverage with meningitis dosing of ceftriaxone. Also on azithromycin for atypical bacteria however clearly not the cause of sepsis. Central line placed in ER. (4) ADRY (acute kidney injury): This has resolved with fluid resuscitation. Her creatinine is 1.0 today will follow daily with history of vancomycin kidney injury. (5) Hypokalemia: Secondary to pH abnormalities of DKA. On replacement protocol Monitor daily (6) Hypomagnesemia: Received placement. Follow-up magnesium level. Monitoring daily (7) Hyponatremia: Combination of pseudohyponatremia with hyperglycemia, DKA, as well as some hypovolemic hypoglycemia. Received fluid challenge. Monitoring daily (8) Interstitial pneumonia: Covered with azithromycin for atypical coverage (9) Abnormal urinalysis: Reviewed urinalysis, borderline abnormal UA doubt UTI most abnormalities consistent with sepsis and ketosis. She only had 5-10 WBCs which would be normal considering the other abnormalities. Current antibiotics likely covering any UTI. Plan Discussed condition and plans at the bedside. Her her DKA is not quite resolved, electrolytes are followed and replaced per protocol. Decrease D5 2 NS with 40 of K to 50 cc/hr and NS at 75 cc/hr MRI head, cervical spine, thoracic spine and lumbar spine looking for source of Staph aureus. Familial hyperlipidemia, Chronic pancreatitis, may have acute flare? Bowel rest and fluids and pain control Chronic back pain Scoliosis Attestations Medical Necessity Statement*: Admission of over 2 midnights anticipated for assessment management of acute encephalopathy, DKA, severe sepsis with unclear source, ADRY, additional abnormalities as above. Coding Level of Care Code Acute Code for [facility] Diagnoses Acute encephalopathy G93.40 DKA (diabetic ketoacidosis) E11.10 Severe sepsis A41.9; R65.20 ADRY (acute kidney injury) N17.9 Hypokalemia E87.6 Hypomagnesemia E83.42 Hyponatremia E87.1 Interstitial pneumonia J84.9 Abnormal urinalysis R82.90
[2023-03-12] MEDS: sodium chloride 0.9% 1,000 ML 75 ML IV (09:49)
[2023-03-12] MEDS: albumin 25 G/100 ML BAG 60 G IV ×2 (09:57→16:52)
[2023-03-12 10:13] LABS: Bacillus cereus group Not Detected (NOT DETECT); Bacillus subtillis group Not Detected (NOT DETECT); Corynebacterium Not Detected (NOT DETECT); Cutibacterium acnes (P.acnes) Not Detected (NOT DETECT); Enterococcus Not Detected (NOT DETECT); Enterococcus faecalis Not Detected (NOT DETECT); Enterococcus faecium Not Detected (NOT DETECT); Lactobacillus species Not Detected (NOT DETECT); Listeria Not Detected (NOT DETECT); Listeria monocytogenes Not Detected (NOT DETECT); Micrococcus Not Detected (NOT DETECT); Pan Candida Not Detected (NOT DETECT); Pan Gram-Negative Not Detected (NOT DETECT); Staphylococcus epidermidis Not Detected (NOT DETECT); Staphylococcus lugdunensis Not Detected (NOT DETECT); Staphylococcus species Detected (NOT DETECT); Streptococcus agalactiae Not Detected (NOT DETECT); Streptococcus anginosus group Not Detected (NOT DETECT); Streptococcus pneumoniae Not Detected (NOT DETECT); Streptococcus pyogenes Not Detected (NOT DETECT); Streptococcus species Not Detected (NOT DETECT); mecA Detected (NOT DETECT); mecC Not Detected (NOT DETECT)
[2023-03-12] MEDS: heparin 5,000 unit/mL INJ 1 mL 5000 UNIT SUBCUT ×2 (10:16→21:25)
[2023-03-12 10:17] LABS: Glucose Point of Care 239 mg/dL (70-110)
[2023-03-12] MEDS: potassium phosphate (mEq K) 40 MEQ in sodium chloride 0.9% (100 ml) 100 ML 25 MEQ IV ×2 (10:17→16:51)
[2023-03-12 10:33] LABS: Anion Gap 13.7 (5-19); Blood Urea Nitrogen 12 mg/dL (6-20); Calcium 6.7 mg/dL (8.5-10.5); Carbon Dioxide 15 mmol/L (22-29); Chloride 97 mmol/L (98-107); Glomerular Filtration Rate 62.4 mL/min (90-130); Glucose 253 mg/dL (65-115); Osmolality Calculated 262 mOsm/kg (285-295); Potassium 3.7 mmol/L (3.5-5.1); Sodium 122 mmol/L (136-145)
[2023-03-12 11:04] LABS: Glucose Point of Care 233 mg/dL (70-110)
[2023-03-12] MEDS: FUROsemide 10 mg/mL SDV 4mL 40 MG IVP (11:07)
--- NOTE | 2023-03-12 11:38 | PC.NURSE ---
pain medication and nausea medication given prior at desk requesting more pain medication she takes dilaudid in hospital and and does edible marjuania at home called placed to doctor reposition pt
[2023-03-12] MEDS: cefTRIAXone 2,000 MG in sodium chloride 0.9% (plus) 50 ML 100 MG IV (11:52)
[2023-03-12 11:58] LABS: Glucose Point of Care 246 mg/dL (70-110)
[2023-03-12] MEDS: ondansetron 2 mg/ML SDV 2 mL 8 MG IVP (12:26)
[2023-03-12 12:41] LABS: Glucose Point of Care 208 mg/dL (70-110)
[2023-03-12] MEDS: lisinopril 10 mg Tablet PO (13:04)
--- NOTE | 2023-03-12 13:56 | PC.NURSE ---
pt resting ,, at desk asking about breakthrough pain medication explained marco given awaiting effect to give po pain medication
[2023-03-12] MEDS: morphine IR 15 mg Tablet 30 MG PO ×2 (14:06→19:33)
[2023-03-12 14:13] LABS: Glucose Point of Care 234 mg/dL (70-110)
[2023-03-12 15:08] LABS: Glucose Point of Care 172 mg/dL (70-110)
[2023-03-12 15:43] LABS: Glucose Point of Care 190 mg/dL (70-110)
[2023-03-12 16:21] LABS: Anion Gap 13.7 (5-19); Blood Urea Nitrogen 11 mg/dL (6-20); Calcium 6.6 mg/dL (8.5-10.5); Carbon Dioxide 17 mmol/L (22-29); Chloride 98 mmol/L (98-107); Glomerular Filtration Rate 62.4 mL/min (90-130); Glucose 181 mg/dL (65-115); Magnesium 1.7 mg/dL (1.7-2.3); Osmolality Calculated 264 mOsm/kg (285-295); Phosphorus 2.6 mg/dL (2.5-4.5); Potassium 3.7 mmol/L (3.5-5.1); Sodium 125 mmol/L (136-145)
--- NOTE | 2023-03-12 16:45 | PC.NURSE ---
talked with doctor about lab ,,repeating k phos at this time requested ns down to 50 and increase d51/2 kcl to 100 as had to decrease insulin and per protocol off... does not want insulin gtt off iv gtts changed
[2023-03-12] MEDS: nystatin powder 15 gm Btl 1 APPLIC TOPICAL (16:51)
[2023-03-12 18:01] LABS: Glucose Point of Care 234 mg/dL (70-110)
[2023-03-12 18:01] LABS: Glucose Point of Care 208 mg/dL (70-110)
[2023-03-12 19:34] LABS: Glucose Point of Care 277 mg/dL (70-110)
[2023-03-12 20:34] LABS: Glucose Point of Care 246 mg/dL (70-110)
[2023-03-12 21:40] LABS: Glucose Point of Care 264 mg/dL (70-110)
--- NOTE | 2023-03-12 22:30 | PC.NURSE ---
IV Fluids Orders for D5-1/2NS-20KCL IV maintenance fluid discontinued as well as NS maintenance fluid discontinued, while PRN D5-1/2NS-20KCL order active and additional NS maintenance fluid active but non administered. Dr. Cole contacted for clarification; order received to administer NS at 50 ml/hr while blood sugar >250, then discontinue NS and administer D5-1/2NS-20KCL at 100ml/hr when blood sugar <250. Additional orders received to administer 20 meq KCL with lidocaine IV once. At 2230, patient's blood glucose 245 with potassium chloride still administering; order received to continue NS at 50 ml/hr until potassium chloride complete then start the D5-1/2NS-20KCL as long as blood sugar adequate. See MAR.
[2023-03-12] MEDS: lidocaine 1% 5 ML in potassium chloride premix 100 ML 52.5 ML IV (22:34)
[2023-03-12] MEDS: sodium chloride 0.9% 1,000 ML 50 ML IV (22:34)
[2023-03-12 22:54] LABS: Glucose Point of Care 245 mg/dL (70-110)
[2023-03-12 23:31] LABS: Magnesium 1.8 mg/dL (1.7-2.3); Phosphorus 3.3 mg/dL (2.5-4.5)
[2023-03-12 23:32] LABS: Alanine Aminotransferase 24 U/L (0-33); Albumin Level 2.5 g/dL (3.5-5.2); Alkaline Phosphatase 73 U/L (35-105); Anion Gap 15.1 (5-19); Aspartate Amino Transferase 30 U/L (0-32); Blood Urea Nitrogen 12 mg/dL (6-20); Calcium 6.7 mg/dL (8.5-10.5); Carbon Dioxide 17 mmol/L (22-29); Chloride 98 mmol/L (98-107); Glomerular Filtration Rate 55.9 mL/min (90-130); Glucose 243 mg/dL (65-115); Osmolality Calculated 270 mOsm/kg (285-295); Potassium 4.1 mmol/L (3.5-5.1); Sodium 126 mmol/L (136-145); Total Bilirubin 0.3 mg/dL (0.15-1.2); Total Protein 5.5 g/dL (6.6-8.7)
[2023-03-12 23:41] LABS: Glucose Point of Care 238 mg/dL (70-110)
[2023-03-13] VITALS (54 sets, daily range): BP systolic 88–165; BP diastolic 60–134; PULSE 99–124; RESP 11–32; TEMP 36.7–37.2; O2SAT 18–97; BMI 44.8
[2023-03-13] MEDS: cefTRIAXone 2,000 MG in sodium chloride 0.9% (plus) 50 ML 100 MG IV (00:42)
[2023-03-13] MEDS: D5-NS 0.45% + KCL 20 mEq 20 MEQ/1,000 ML BAG 100 MEQ IV (00:49)
[2023-03-13 01:08] LABS: Glucose Point of Care 231 mg/dL (70-110)
[2023-03-13] MEDS: albumin 25 G/100 ML BAG 60 G IV (01:43)
[2023-03-13] MEDS: morphine IR 15 mg Tablet 30 MG PO ×2 (01:45→05:55)
--- NOTE | 2023-03-13 02:01 | PC.NURSE ---
Addendum entered by Jami Da Silva RN 03/13/23 02:23: Witnessed waste of 1 tablet. Original Note: Oral Morphine While administering two 15mg tablets for a total of 30 mg morphine PO as ordered, one 15 mg tablet was dropped onto the floor. The second tablet previously swallowed by patient. The dropped tablet was then wasted with LAURA Farrell. Santo in pharmacy contacted; one time order placed for the 15 mg morphine PO tablet once. MAR inaccurately displays 45 mg morphine administered PO; 30 mg total of morphine PO administered to patient while 15 mg morphine wasted.
[2023-03-13] MEDS: morphine IR 15 mg Tablet PO (02:12)
[2023-03-13 02:14] LABS: Glucose Point of Care 238 mg/dL (70-110)
[2023-03-13 02:23] LABS: Glucose Point of Care 230 mg/dL (70-110)
[2023-03-13 03:00] LABS: Blood Urea Nitrogen 12 mg/dL (6-20); Calcium 6.8 mg/dL (8.5-10.5); Carbon Dioxide 17 mmol/L (22-29); Chloride 98 mmol/L (98-107); Glomerular Filtration Rate 62.4 mL/min (90-130); Glucose 231 mg/dL (65-115); Magnesium 1.9 mg/dL (1.7-2.3); Osmolality Calculated 267 mOsm/kg (285-295); Phosphorus 2.6 mg/dL (2.5-4.5); Sodium 125 mmol/L (136-145)
[2023-03-13 03:36] LABS: Glucose Point of Care 224 mg/dL (70-110)
[2023-03-13] MEDS: ondansetron 2 mg/ML SDV 2 mL 8 MG IVP (03:46)
[2023-03-13 05:21] LABS: Glucose Point of Care 254 mg/dL (70-110)
[2023-03-13] MEDS: metoclopramide 5 mg/mL SDV 2 mL 10 MG IVP (05:55)
[2023-03-13 06:11] LABS: Anion Gap 14.1 (5-19); Blood Urea Nitrogen 12 mg/dL (6-20); Calcium 6.5 mg/dL (8.5-10.5); Carbon Dioxide 18 mmol/L (22-29); Chloride 99 mmol/L (98-107); Glomerular Filtration Rate 55.9 mL/min (90-130); Glucose 216 mg/dL (65-115); Magnesium 1.9 mg/dL (1.7-2.3); Osmolality Calculated 270 mOsm/kg (285-295); Phosphorus 2.4 mg/dL (2.5-4.5); Potassium 4.1 mmol/L (3.5-5.1); Sodium 127 mmol/L (136-145)
[2023-03-13 06:42] LABS: Vancomycin Trough 13.3 ug/mL (10-15)
--- NOTE | 2023-03-13 06:43 | PC.NURSE ---
MRI Order received from Dr. Cole to pause insulin drip and D5-1/2Ns-20KCL during MRI scans. See MAR for paused administration.
--- NOTE | 2023-03-13 07:27 | PC.NURSE ---
MRI During MRI, patient became short of breath and very anxious, requested to stop scan. MRI stopped and patient returned to room. Insulin and fluids resumed per JUL. Dr. Cole notified of stopped scan.
[2023-03-13] MEDS: vancomycin 1,500 MG/300 ML PIGGYBACK 200 MG IV ×2 (07:50→17:43)
[2023-03-13] MEDS: morphine 4 mg/mL SDV 1 mL IVP (07:52)
--- NOTE | 2023-03-13 07:53 | XRR_ITS ---
PROCEDURE INFORMATION: Exam: XR Chest Exam date and time: 03/13/2023 8:08 AM Age: 37 years old Clinical indication: Shortness of breath; Prior surgery; Surgery date: 6+ months; Surgery type: Spine; Additional info: Hypoxia TECHNIQUE: Imaging protocol: Radiologic exam of the chest. 1image(s) are provided. Views: 1 view. COMPARISON: 1. CT chest abdpel w/*[id number] 03/11/2023 2:56 AM 2. CR (CHEST, ) 03/11/2023 2:35 AM FINDINGS: Tubes, catheters and devices: The right central catheter remains. Lungs: Compared to the previous chest radiograph there is some increased reticulonodular opacification overall bilaterally along with some patchy coalescence at the lower lung zones left more so than right. There is some lung pneumatocele type averaging. No interval lobar type consolidation is appreciated. Pleural spaces: There is some minimal costophrenic angle blunting. No pneumothorax is appreciated. Heart/Mediastinum: The cardiomediastinal silhouette is upper normal in size.This can be seen with central averaging as well as scottie enlargement.No cardiac decompensation is appreciated. There appears to be some central hiatal hernia. Diaphragm: There is slight asymmetric right hemidiaphragm elevation. Bones/joints: Osseous alignment is maintained.No interval displaced fracture or dislocation is appreciated. The spinal mata hardware changes appears similar overall. Soft tissues: No radiopaque foreign body or subcutaneous emphysema is appreciated. Other findings: No other significant interval changes are appreciated. XR/XR chest 1V portable [id number] IMPRESSION: There is interval progressive bilateral inflammation with some areas of patchy reticulonodular coalescence. No lobar type consolidation or cardiac decompensation is currently appreciated.
[2023-03-13 08:47] LABS: Glucose Point of Care 261 mg/dL (70-110)
[2023-03-13 08:47] LABS: Glucose Point of Care 249 mg/dL (70-110)
[2023-03-13 08:47] LABS: Glucose Point of Care 239 mg/dL (70-110)
[2023-03-13 09:32] LABS: Glucose Point of Care 264 mg/dL (70-110)
[2023-03-13 10:04] LABS: Anion Gap 13.2 (5-19); Blood Urea Nitrogen 12 mg/dL (6-20); Calcium 6.6 mg/dL (8.5-10.5); Carbon Dioxide 18 mmol/L (22-29); Chloride 99 mmol/L (98-107); Glomerular Filtration Rate 55.9 mL/min (90-130); Glucose 219 mg/dL (65-115); Magnesium 1.9 mg/dL (1.7-2.3); Osmolality Calculated 268 mOsm/kg (285-295); Phosphorus 2.2 mg/dL (2.5-4.5); Potassium 4.2 mmol/L (3.5-5.1); Sodium 126 mmol/L (136-145)
[2023-03-13 10:30] LABS: Blood Gas Sample Type Not specified
[2023-03-13] MEDS: pantoprazole 40 mg SDV IVP (10:35)
[2023-03-13] MEDS: heparin 5,000 unit/mL INJ 1 mL 5000 UNIT SUBCUT (10:36)
[2023-03-13 10:39] LABS: Blood Gas Sample Site Brachial, left
[2023-03-13 11:02] LABS: Glucose Point of Care 221 mg/dL (70-110)
--- NOTE | 2023-03-13 11:06 | CT_ITS ---
WS: [id number] CT THORACIC SPINE TECHNIQUE: Contrast-enhanced CT of the thoracic spine with coronal and sagittal reformatted images. CLINICAL INFORMATION: possible discitis COMPARISON: None. DLP: 2744.[address] scans at [facility] use at least one of these dose optimization techniques: automated e xposure control; mA and/or kV adjustment per patient size (includes targeted exams where dose is matc hed to clinical indication); or iterative reconstruction. FINDINGS: S-shaped thoracic scoliosis. Mild thoracic kyphosis. Prior postoperative changes dorsal mata fixation extending from T3-L2. Pedicle screw fixation at L1-2. No evidence of discitis or osteomyelitis in the thoracic spine. Vertebral body heights are well-maintained. Fusion of the thoracic disc spaces. No paraspinal fluid collections. Adrenal glands appear normal. Dorsal interconnecting rods appear int act. Progressed partially visualized patchy pulmonary infiltrates throughout both lungs. Small RIGHT pleur al effusion with compressive atelectasis RIGHT lower lobe is new from previous with air bronchograms in the RIGHT lower lobe. IMPRESSION: 1. Progressed partially visualized patchy and hazy pulmonary opacities. Recommend correlation for p neumonia. These appear more prominent in a perihilar distribution. 2. New small RIGHT pleural effusion with compressive atelectasis RIGHT lower lobe partially visualiz ed with air bronchograms. 3. No evidence of discitis
--- NOTE | 2023-03-13 11:06 | CT_ITS ---
WS: [id number] CT LUMBAR SPINE TECHNIQUE: Contrast-enhanced CT of the lumbar spine with coronal and sagittal reformatted images. CLINICAL INFORMATION: possible discitis COMPARISON: None. DLP: 2744.[address] scans at [facility] use at least one of these dose optimization techniques: automated e xposure control; mA and/or kV adjustment per patient size (includes targeted exams where dose is matc hed to clinical indication); or iterative reconstruction. FINDINGS: In keeping with the thoracic numbering convention, pedicle screw fixation at L1 and L2. Lum bar vertebral bodies labeled L1-L6 No evidence of discitis or osteomyelitis. L1-L2: Pedicle screw fixation. L2-L3: Pedicle screw fixation. Moderate facet arthropathy. Spinal canal and foramen are patent. L3-L4: Slight narrowing LEFT subarticular recess. Moderate facet arthropathy. Spinal canal is patent . Foramen are patent. L4-L5: Moderate facet arthropathy. Spinal canal and foramen are patent. L5-L6: Mild disc bulging. Mild central canal stenosis. Moderate facet arthropathy with ligament flavu m hypertrophy. Foramen are patent. L6-S1:LEFT paracentral disc bulging. Spinal canal and foramen are patent. Visualized pelvic bony structures: Paravertebral soft tissues: Normal Filling defect in the LEFT common iliac and internal iliac vein suspicious for thrombus. Recommend fu rther evaluation with ultrasound IMPRESSION: Images somewhat degraded by body habitus and spinal hardware 1. No evidence of discitis or osteomyelitis. No evidence of paravertebral abscess. 2. Filling defect in the LEFT common iliac and internal iliac vein suspicious for thrombus. Recommen d further evaluation with LEFT lower extremity ultrasound 3. Mild central canal stenosis L5-L6 with moderate facet arthropathy ligamentum flavum hypertrophy. 4. Tiny LEFT paracentral protrusion L6-S1. Notified Lane Ho MD at 03/13/2023 3:25 PM.
[2023-03-13] MEDS: nystatin powder 15 gm Btl 1 APPLIC TOPICAL ×2 (11:09→17:45)
[2023-03-13] MEDS: insulin glargine 100 units/1 mL 40 UNIT SUBCUT ×2 (11:18→17:44)
[2023-03-13] MEDS: meropenem 1,000 MG in sodium chloride 0.9% (plus) 50 ML 100 MG IV ×2 (11:19→20:15)
[2023-03-13 11:33] LABS: Basophils % 0.3 %; Eosinophils # 0.1 10^3/uL (0.0-0.8); Eosinophils % 0.5 %; Hematocrit 24.1 % (36-47); Lymphocytes # 0.8 10^3/uL (0.8-4.8); Lymphocytes % 8.8 %; Mean Corpuscular HGB Conc 32.8 g/dL (30-55); Mean Corpuscular Hemoglobin 29.6 pg (27-33); Mean Corpuscular Volume 90.3 fl (85-98); Mean Platelet Volume 9.9 fL (7.4-10.4); Monocytes # 0.7 10^3/uL (0.2-0.9); Neutrophils # 7.58 10^3/uL (1.8-7.7); Neutrophils % 82.3 %; Nucleated Red Blood Cells % 0 %; Platelet Count 159 10^3/cmm (157-399); Red Blood Count 2.67 10^6/uL (3.85-5.65); Red Cell Distribution Width 13.9 % (12.1-15.1); White Blood Count 9.22 10^3/uL (3.29-11.43)
[2023-03-13 11:39] LABS: Iron 7 ug/dL (37-145); Percent Saturation 7.2 % (20-50); Total Iron Binding Capacity 96 mcg/dl; Unsaturated Iron Binding 89 ug/dL (112-347)
[2023-03-13 11:53] LABS: Triglycerides 1486 mg/dL (0-150)
[2023-03-13 11:55] LABS: Lactic Sepsis W/Reflex 1.7 mmol/L (0.5-2.2)
[2023-03-13 11:56] LABS: Procalcitonin 23.11 ng/mL (0-0.5)
[2023-03-13 12:22] LABS: Vitamin B12 > 2000 pg/mL (232-1245)
[2023-03-13 12:26] LABS: LDL Cholesterol Direct 33 mg/dL (0-100)
[2023-03-13] MEDS: insulin lispro 100 unit/1 mL SUBCUT ×2 (12:31→21:15)
[2023-03-13] MEDS: morphine 4 mg/mL SDV 1 mL 2 MG IVP ×3 (12:34→20:15)
[2023-03-13] MEDS: lanolin oint 7 gm 1 APPLIC TOPICAL (13:10)
[2023-03-13] MEDS: iohexol 350 mg/mL 500 mL Btl (per mL) IV ×2 (14:29→15:53)
--- NOTE | 2023-03-13 15:29 | CT_ITS ---
WS: [id number] CTA OF THE CHEST WITH PULMONARY EMBOLISM PROTOCOL TECHNIQUE: High-resolution contrast enhanced CTA of the chest with coronal and sagittal reformatted i mages with pulmonary embolism protocol. MIP images are also reviewed. CLINICAL INFORMATION: pe COMPARISON: CT 03/11/2023 DLP: 455.[address] scans at [facility] use at least one of these dose optimization techniques: automated e xposure control; mA and/or kV adjustment per patient size (includes targeted exams where dose is matc hed to clinical indication); or iterative reconstruction. FINDINGS: Some images degraded by body habitus. Proximal main pulmonary arteries are normal. Normal visualized segmental and proximal subsegmental pu lmonary arteries. Multiple new bilateral groundglass subpleural and LEFT wedge-shaped peripheral opacities with suggest ion of early cavitation in some areas. Some of these opacities are closely associated with feeding ve ssels can be seen with septic emboli although nonspecific. Additional considerations include bacteria l and fungal pneumonia. Small RIGHT greater than LEFT pleural effusions. Compressive atelectasis RIGHT lower lobe with air br onchograms. Prominent mediastinal lymph nodes likely reactive. No axillary lymphadenopathy. Shallow i nspiration. Thoracolumbar scoliosis with dorsal fixation rods. IMPRESSION: 1. No evidence of proximal pulmonary embolus. 2. Multiple peripheral and wedge-shaped groundglass opacities some with suggestion of early cavitati on can be seen with septic emboli. Additional considerations include fungal or bacterial pneumonia. O pacities are new since 03/11/2023 3. Small RIGHT greater than LEFT pleural effusions with compressive atelectasis with air bronchogram s in the RIGHT lower lobe. 4. Mediastinal lymphadenopathy likely reactive. 5. Thoracolumbar scoliosis with dorsal mata fixation. Notified Lane Ho MD at 03/13/2023 4:16 PM.
--- NOTE | 2023-03-13 15:29 | USR_ITS ---
PROCEDURE INFORMATION: Exam: US Duplex Lower Extremity Veins, Bilateral Exam date and time: 03/13/2023 4:20 PM Age: 37 years old Clinical indication: Swelling (edema) of limb; Lower extremity, right; Additional info: Dvt TECHNIQUE: Imaging protocol: Real-time duplex ultrasound of the bilateral extremities with 2-D teague scale, color Doppler flow and spectral waveform analysis including responses to compression and other maneuvers (when performed) with image documentation. Complete exam focused on the lower extremity veins. COMPARISON: CT chest abdpel w/*[id number] 03/11/2023 2:56 AM FINDINGS: Right deep veins: Unremarkable. The common femoral, femoral, proximal profunda femoral and popliteal veins are patent without thrombus. Normal Doppler waveforms. Normal compressibility and/or augmentation response. Left deep veins: Unremarkable. The common femoral, femoral, proximal profunda femoral and popliteal veins are patent without thrombus. Normal Doppler waveforms. Normal compressibility and/or augmentation response. Superficial veins: Bilateral saphenofemoral junctions are patent without thrombus. Soft tissues: Unremarkable. US/CV venous duplex [facility] [id number] IMPRESSION: No evidence of deep vein thrombosis.
--- NOTE | 2023-03-13 16:37 | PM.PN ---
Subjective Subjective: Admitted 03/11/2023 with acute encephalopathy, severe sepsis, DKA. She was started empirically on ceftriaxone for possible meningitis, Zyvox and azithromycin for interstitial pneumonia per chest x-ray but not on CT chest. She was started on DKA protocol with insulin drip. Central line placed in ER. Respiratory viral panel was negative. CT chest abdomen pelvis was also negative. 03/12/2023. Patient is markedly improved with her mentation. Patient growing Staph aureus and blood; no source identified as of yet. MRI head looking for septic emboli. MRI cervical thoracic and lumbar spine due to patient's hardware. Since patient is hemodynamically stable and improving the MRIs will be done tomorrow morning at 6 AM. Vitals/I&O/Wt Last Vital Signs Temp 98.1 F 03/13/23 04:00 Pulse 114 H 03/13/23 16:30 Resp 30 H 03/13/23 16:30 BP 122/65 03/13/23 16:30 Pulse Ox 94 03/13/23 16:30 O2 Del Method Nasal Cannula 03/13/23 16:30 O2 Flow Rate 4 03/13/23 16:30 03/13/23 03/13/23 03/13/23 06:59 14:59 22:59 Intake Total 1618.3156 / 6098.6372 1250.890 / 1250.890 Output Total 900 / 3300 1250 / 1250 Balance 718.3156 / 2798.6372 0.890 / 0.890 Weight last 48 hrs Weight 129.727 kg Weight 130.181 kg Physical Exam Urinary Catheter Management: Skinner: Cath Placed During This Visit: yes Reason for Continuing Indwelling Catheter: Accurate Measurement of Urinary Output in Critically Ill Patients Urinary Catheter Date of Insertion: 03/11/23 Urinary Catheter Time of Insertion: 09:05 Data 03/13/23 11:05 03/13/23 09:24 Micro: Microbiology 03/13/23 12:10 Gram Stain - Final Sputum - Expectorated Sputum 03/11/23 01:50 Blood Culture - Final Blood Methicillin Resis Staph Aureus 03/11/23 01:50 Blood Culture - Final Blood Methicillin Resis Staph Aureus 03/13/23 11:16 Blood Culture - Preliminary Blood SPECIMEN COLLECTED 03/13/23 11:05 Blood Culture - Preliminary Blood SPECIMEN COLLECTED A&P Assessment and plan (1) Severe sepsis: Ruled in with tachycardia, bacteremia, started organ dysfunction with acute kidney injury, hypoxia, resolving altered mental status. Keep mean artery pressure 65, oxygen saturation over 90%. Follow-up blood cultures. Repeat blood cultures today. Blood culture from 03/10 positive for MRSA. (2) MRSA bacteremia: Blood cultures from 03/10 positive. Repeat blood cultures today. Unclear source. Patient gives history of Staphylococcus bacteremia in past from osteomyelitis of bilateral great toes. Does give history of hardware in spine for scoliosis. No recent skin breakdown, animal bite. Possible MRSA pneumonia. Cannot rule out septic emboli given chest imaging. Patient will need at least 4 weeks of IV antibiotics from negative blood cultures. CT lumbar and thoracic spine to rule out discitis. Check echocardiogram. We will consult ID for further recommendations. (3) Hypoxia: Most likely in setting of MRSA bacteremia though cannot rule out septic emboli. Aggressive pulmonary toilet with incentive spirometry and flutter valve. Pulmicort twice daily, ipratropium, Xopenex every 6 hourly. Keep oxygen saturation over 90%. Out of bed to chair. Check sputum culture. Continue with vancomycin as above. Cannot rule out superadded atypical infection. Switch to meropenem 1 g twice daily. Patient with history of allergic reaction with rash and possible worsening of pancreatitis with ampicillin. (4) Bilateral interstitial pneumonia: With concerns for septic emboli. Check CTA to rule out pulmonary embolism. Concerns for filling defect and iliac artery on lumbar CT spine. Antibiotic as above. Check D-dimer, lower limb Dopplers. (5) ADRY (acute kidney injury): Baseline creatinine around 1. Currently 1.1 and persistent. Along with hyponatremia. Anion gap has closed. Continues to have metabolic acidosis. Medical reconciliation done for nephrotoxic drugs. Strict input output charting. Continue with fluids for now. Switch to normal saline at 100 cc/h. Depending on volume status will plan for Lasix later in the day. Currently around 9.5 L positive. Monitor Vanco trough levels. (6) Hyponatremia: In combination with pseudohyponatremia with hyperglycemia. Fluids as above. Monitor BMP daily for now. (7) Diabetes: DKA has resolved. Anion gap closed. As per patient she used to be on insulin pump which so far has not been functioning well so patient has stopped using currently. Currently she was taking 45 units of Lantus along with 40 to 50 units of Humalog with each meals. Stop insulin drip. Start on insulin sliding scale at high-dose protocol with Humalog 10 units 3 times daily. Lantus 40 units twice daily. Hypoglycemia protocol. Start on carb consistent clear liquid diet. (8) Acute encephalopathy: Resolved. (9) DKA (diabetic ketoacidosis): Patient remains acidotic with a bicarb of 16-18. Must continue insulin drip. And follow DKA protocol. Electrolytes are being corrected via DKA pathway. Decrease fluids as patient is probably getting fluid overload with a low albumin. D5 half-normal saline with 40 of KCl at 50 cc an hour and normal saline at 75 cc an hour for the sepsis and lactic acidosis. (10) Hypokalemia: Secondary to pH abnormalities of DKA. On replacement protocol Monitor daily (11) Hypomagnesemia: Received placement. Follow-up magnesium level. Monitoring daily (12) Familial hypertriglyceridemia: Chronic. As per patient history of familial hypertriglyceridemia. Failed multiple outpatient medications. States baseline triglyceride levels are usually over 10,000. We will request outpatient documents. Check triglyceride levels. Check lipid panel. Given chronic triglyceride level being high for now we will stop the insulin drip even if triglyceride levels are more than 500. Continue to monitor triglyceride levels daily. Plan Hypertension: Goal blood pressure less than 140/90 mmHg. Blood pressure is elevated to more than 170. Start on amlodipine 5 mg oral daily. Continues to have tachycardia. For now we will hold off on rate limiting medications. Familial hyperlipidemia, Chronic pancreatitis, Chronic back pain Scoliosis: Postoperative. Full code Clear liquid diet Heparin 5000 every 12 hourly Protonix for PUD prophylaxis. Attestations Medical Necessity Statement*: Requires further hospitalization for management of severe sepsis in setting of MRSA bacteremia, hypoxia in setting of possible MRSA pneumonia with cavity and possible septic embolus, severe uncontrolled type 2 diabetes mellitus Coding Level of Care Code Critical Care >/= 30 minutes Critical care time (in minutes): 70 The high probability of a clinically significant, sudden or life threatening deterioration, as referenced in this documentation, required my full and direct attention, intervention and personal management. The critical care time shown is in addition to time spent performing any reported separately billable procedures and includes the following: [x] Data and vital sign review and interpretation [x] Patient assessment, examination and intervention [x] Medication orders and management [x] Patient/Family updates as able [x] Care Coordination and Documentation. Diagnoses Severe sepsis A41.9; R65.20 MRSA bacteremia R78.81; B95.62 Hypoxia R09.02 Bilateral interstitial pneumonia J84.9 ADRY (acute kidney injury) N17.9 Hyponatremia E87.1 Diabetes E11.9 Acute encephalopathy G93.40 DKA (diabetic ketoacidosis) E11.10 Hypokalemia E87.6 Hypomagnesemia E83.42 Familial hypertriglyceridemia E78.1
[2023-03-13 16:41] LABS: Glucose Point of Care 205 mg/dL (70-110)
[2023-03-13 16:44] LABS: D Dimer 11.91 ug/mLFEU (0-0.59)
[2023-03-13 17:18] LABS: Glucose Point of Care 240 mg/dL (70-110)
[2023-03-13] MEDS: FUROsemide 10 mg/mL SDV 4mL 40 MG IVP (17:42)
[2023-03-13] MEDS: insulin lispro 100 unit/1 mL 10 UNIT SUBCUT (17:44)
[2023-03-13] MEDS: heparin drip 25,000 UNIT/500 ML PREMIX 36.32 UNIT IV (17:57)
[2023-03-13 19:44] LABS: HIV 1 & 2 Antibody Non-Reactive (Non-Reactiv); HIV 1 & 2 Antigen Non-Reactive (Non-Reactiv)
[2023-03-13 21:04] LABS: Hepatitis A Antibody IgM Non-Reactive (Nonreactive); Hepatitis B Core AB, Total Non-Reactive (Nonreactive); Hepatitis B Surface AB 104.2 (11.5-1000); Hepatitis B Surface Antigen Non-Reactive (Nonreactive); Hepatitis C Virus Antibody Non-Reactive (Nonreactive)
[2023-03-13 21:14] LABS: Glucose Point of Care 227 mg/dL (70-110)
[2023-03-13 23:50] LABS: Partial Thromboplastin Time 42.4 SECONDS (23.9-36.7)
[2023-03-14] VITALS (56 sets, daily range): BP systolic 122–175; BP diastolic 67–150; PULSE 81–176; RESP 13–32; TEMP 36.9–37.5; O2SAT 79–100; BMI 44.6
[2023-03-14] MEDS: morphine 4 mg/mL SDV 1 mL 2 MG IVP ×5 (00:16→21:01)
[2023-03-14] MEDS: meropenem 1,000 MG in sodium chloride 0.9% (plus) 50 ML 100 MG IV ×3 (01:58→20:12)
[2023-03-14] MEDS: oxyCODONE-APAP 5-325 mg Tablet 1 TAB PO ×4 (03:37→18:23)
--- NOTE | 2023-03-14 03:48 | PC.NURSE ---
Pain Patient complaining of severe back pain despite PRN IV morphine administration. Dr. Pedroza contacted and order received for 1 tablet percocet 5-325 PRN Q4H for pain. See MAR for medication administration.
[2023-03-14] MEDS: vancomycin 1,500 MG/300 ML PIGGYBACK 200 MG IV ×2 (05:50→18:12)
[2023-03-14 06:50] LABS: Glucose Point of Care 212 mg/dL (70-110)
[2023-03-14] MEDS: insulin lispro 100 unit/1 mL 10 UNIT SUBCUT ×3 (06:54→18:14)
[2023-03-14] MEDS: insulin lispro 100 unit/1 mL SUBCUT ×3 (07:37→20:13)
[2023-03-14] MEDS: heparin drip 25,000 UNIT/500 ML PREMIX 44 UNIT IV (07:40)
[2023-03-14 07:51] LABS: Glucose Point of Care 205 mg/dL (70-110)
[2023-03-14] MEDS: amlodipine 5 mg Tablet PO (08:32)
[2023-03-14] MEDS: pantoprazole 40 mg SDV IVP (08:32)
[2023-03-14] MEDS: insulin glargine 100 units/1 mL 40 UNIT SUBCUT (08:32)
[2023-03-14] MEDS: nystatin powder 15 gm Btl 1 APPLIC TOPICAL ×2 (08:39→18:17)
[2023-03-14 08:42] LABS: Alanine Aminotransferase 28 U/L (0-33); Albumin Level 2.4 g/dL (3.5-5.2); Alkaline Phosphatase 106 U/L (35-105); Anion Gap 15.3 (5-19); Aspartate Amino Transferase 27 U/L (0-32); Blood Urea Nitrogen 11 mg/dL (6-20); Carbon Dioxide 17 mmol/L (22-29); Chloride 97 mmol/L (98-107); Globulin 3.3 g/dL (1.3-4.6); Glomerular Filtration Rate 70.5 mL/min (90-130); Glucose 175 mg/dL (65-115); Osmolality Calculated 266 mOsm/kg (285-295); Potassium 3.3 mmol/L (3.5-5.1); Sodium 126 mmol/L (136-145); Total Bilirubin 0.6 mg/dL (0.15-1.2); Total Protein 5.7 g/dL (6.6-8.7)
--- NOTE | 2023-03-14 10:00 | PM.CONSULT ---
Providers/Reason For Consult Consulting Physician/Specialty*: Reva Pedroza MD/ Infectious Disease Reason for Consult*: MRSA bateremia Requesting Physician: Lane Ho MD Attending Physician: Lane Ho MD History of Present Illness History of Present Illness Michelle Morales is a 37 year old female with a past medical history of hypertriglyceridemia, chronic recurrent pancreatitis, insulin-dependent diabetes mellitus who was brought into the emergency room on March 11, 2023 with chief complaints of altered mental status. Per her who brought her in at that time, patient was noted to have an acute change in mentation with confusion at around 11 PM on 03/10/2023. In the ER she was found to have signs of sepsis with fever up to 103 Fahrenheit, tachycardia 130s, leukocytosis of 17 and evidence of DKA. Patient states that she had been having a lot of nausea and vomiting in the 3 to 4 days leading up to the admission but she had attributed this to her known chronic pancreatitis. She had also additionally been having some abdominal pain with vaginal discharge which she thought was related to having an ovarian torsion/cyst however did not seek further medical attention regarding the same. Denies any fever or chills. States that she had been experiencing some some chest discomfort and difficulty breathing in the 3 to 4 days leading up to admission. She received treatment with insulin infusion. Was started on ceftriaxone linezolid empirically, sepsis source evaluation revealed CT chest abdomen and pelvis with nodular groundglass opacities predominantly in a peripheral distribution compatible with interstitial pneumonia versus cryptogenic organizing pneumonia. Eventually her blood cultures from March 11 additionally resulted positive for MRSA. Patient reports a past medical history of MRSA abscess and osteomyelitis of the right foot in May 2022 which was treated with 8-12 weeks of IV vancomycin, however treatment had to be changed over to daptomycin due to development of acute kidney injury while on vancomycin. She has a remote history also of osteomyelitis of the left foot, unknown organism, this also resulted in a big toe amputation at that time. She states she was on long-term antibiotics but does not remember which one this was. She has extensive surgical hardware in the back for corrective surgeries for scoliosis that were performed at the age of 11. No infectious complications with the hardware as far as she is aware. Patient was not bacteremic in May 2022 as far as she knows. No past history of endocarditis. No history of IV drug use. Patient previously lived in [place] and has recently moved into the [facility] to be closer to 's family. Review of Systems General: Reports: 10 or more systems reviewed and unremarkable except in HPI and below Const: Denies: fever(s), chills or body aches Eyes: Denies: change in vision, blurry vision or photophobia ENMT: Reports: hoarseness; Denies: throat pain, enlarged tonsils, odynophagia or nasal congestion Card: Denies: chest pain, palpitations, irregular heart rhythm, edema, swelling of feet/ankles, lightheadedness, pre-syncope, dyspnea on exertion or orthopnea Resp: Denies: dyspnea, productive cough, non-productive cough, wheezing, stridor, pain on inspiration, change in phlegm color, hemoptysis or chest congestion GI: Denies: abdominal pain, nausea, vomiting, hematemesis, coffee ground emesis, dysphagia, heartburn, diarrhea, constipation, GI cramping, change in stool character, hematochezia or melena : Denies: flank pain, difficulty voiding, dysuria, urinary frequency, urinary urgency, urinary hesitancy or hematuria Musc: Denies: neck pain, back pain, extremity pain, joint swelling, joint warmth or deformity Neuro: Denies: headache(s), numbness in extremities, weakness in extremities, sensory changes, difficulty walking, frequent falls, dizziness, vertigo, behavioral changes, Slurred speech present or seizure-like activity Psych: Denies: anxiety, depression, suicidal ideation or homicidal ideation Endo: Denies: polyuria, polydipsia, tired all the time, cold intolerance or hot flashes Dallin/Lymph: Denies: easy bruising or easy bleeding Medications/Allergies Home Medications Medication Instructions Recorded Confirmed Last Taken Type Delta-8 Thc Gummies 8 mg PO DAILY PRN 03/11/23 03/11/23 Unknown History pancreatitis/back pain amlodipine 5 mg tablet 5 mg PO DAILY 03/11/23 03/11/23 Unknown History aspirin 325 mg tablet 325 - 650 mg PO Q6H PRN Pain 03/11/23 03/11/23 Unknown History dicyclomine 20 mg tablet 20 mg PO Q6H PRN Abdominal Pain 03/11/23 03/11/23 Unknown History ibuprofen 200 mg tablet 400 - 600 mg PO Q6H PRN Pain 03/11/23 03/11/23 Unknown History insulin glargine-yfgn 100 unit/mL See Rx Instructions .Route .COMPLEX 03/11/23 03/11/23 Unknown History subcutaneous solution insulin lispro 100 unit/mL See Rx Instructions .Route .COMPLEX 03/11/23 03/11/23 Unknown History subcutaneous solution (Humalog U-100 Insulin) srixec-[id number]-cecayab See Rx Instructions .Route .COMPLEX 03/11/23 03/11/23 Unknown History 12,000-38,000-60,000 unit capsule,delayed rel (Creon) lisinopril 20 mg tablet 20 mg PO DAILY 03/11/23 03/11/23 Unknown History ondansetron 4 mg disintegrating 4 mg PO TID PRN Nausea And Vomiting 03/11/23 03/11/23 Unknown History tablet pantoprazole 40 mg tablet,delayed 40 mg PO DAILY 03/11/23 03/11/23 Unknown History release potassium chloride 10 mEq 10 meq PO DAILY 03/11/23 03/11/23 Unknown History tablet,extended release Allergies Allergy/AdvReac Type Severity Reaction Status Date / Time amoxicillin Allergy ADR-Abdominal Verified 10/27/22 22:26 Pain piperacillin [From Zosyn] Allergy ALGY-Hives Verified 10/27/22 22:26 tazobactam [From Zosyn] Allergy ALGY-Hives Verified 10/27/22 22:26 Current Medications Generic Name Dose Route Start Last Admin Trade Name Freq PRN Reason Stop Dose Admin Amlodipine Besylate 5 mg 03/14/23 09:00 03/14/23 08:32 Amlodipine 5 Mg Tablet PO 5 mg DAILY JAQUELINE Administration Atorvastatin Calcium 40 mg 03/14/23 21:00 03/14/23 20:13 Atorvastatin 40 Mg Tablet PO 40 mg BEDTIME JAQUELINE Administration Ferrous Gluconate 324 mg 03/14/23 18:00 03/14/23 18:13 Ferrous Gluconate 324 Mg Tablet PO 324 mg BIDWM JAQUELINE Administration Vancomycin/PEG/NADA/Lysine/Water 1,500 mg in 300 mls @ 200 mls/hr 03/11/23 18:00 03/14/23 20:44 Vancocin IV Infused Q12H JAQUELINE Infusion Meropenem 1,000 mg/ Sodium 50 mls @ 100 mls/hr 03/13/23 10:30 03/14/23 20:12 Chloride IV 100 mls/hr Q8H JAQUELINE Administration Protocol Heparin Sodium/Sodium Chloride 25,000 unit in 500 mls @ 0 mls/hr 03/13/23 17:00 03/14/23 19:54 Heparin Drip IV 17.73 unit/kg/hr .Q0M JAQUELINE 46 mls/hr Administration Protocol Per Protocol Insulin Glargine 45 unit 03/14/23 18:00 03/14/23 18:13 Insulin Glargine 100 Units/1 Ml SUBCUT 45 unit BID JAQUELINE Administration Insulin Human Lispro 0 unit 03/13/23 12:00 03/14/23 20:13 Insulin Lispro 100 Unit/1 Ml SUBCUT 6 unit WM&BEDTIME JAQUELINE Administration Protocol Insulin Human Lispro 10 unit 03/13/23 17:00 03/14/23 18:14 Insulin Lispro 100 Unit/1 Ml SUBCUT 10 unit TIDAC JAQUELINE Administration Lanolin 1 applic 03/13/23 12:37 03/13/23 13:10 Lanolin Oint 7 Gm TOPICAL 1 applic PRN PRN Administration DRYNESS Metoclopramide HCl 10 mg 03/12/23 12:28 03/13/23 05:55 Metoclopramide 5 Mg/Ml Sdv 2 Ml IVP 10 mg Q6H PRN Administration NAUSEA AND VOMITING Morphine Sulfate 2 mg 03/13/23 11:07 03/14/23 21:01 Morphine 4 Mg/Ml Sdv 1 Ml IVP 2 mg Q4H PRN Administration MODERATE PAIN Non-Formulary Medication 1 cap 03/12/23 17:00 03/14/23 18:15 Afrzvv-Ssdosedv-Xduatzh [Creon] PO 1 cap WM&BEDTIME JAQUELINE Administration Nystatin 1 applic 03/12/23 18:00 03/14/23 18:17 Nystatin Powder 15 Gm Btl TOPICAL 1 applic BID JAQUELINE Administration Ondansetron HCl 8 mg 03/12/23 09:34 03/13/23 03:46 Ondansetron 2 Mg/Ml Sdv 2 Ml IVP 8 mg Q8H PRN Administration vomiting, or N/V if npo Oxycodone/Acetaminophen 1 tab 03/14/23 11:28 03/14/23 18:23 Oxycodone-Apap 5-325 Mg Tablet PO 1 tab Q6H PRN Administration PAIN Pantoprazole Sodium 40 mg 03/11/23 09:00 03/14/23 08:32 Pantoprazole 40 Mg Sdv IVP 40 mg DAILY JAQUELINE Administration Sodium Chloride 1 gm 03/14/23 15:00 03/14/23 20:13 Sodium Chloride 1 Gm Tablet PO 1 gm TID JAQUELIEN Administration PFSH Acute PFSH: Medical History Chronic back pain Chronic pancreatitis Diabetes Familial hypertriglyceridemia Scoliosis Surgical History Hx of spinal surgery Family History Other Hyperlipidemia Social History Household members: spouse Marital status: Vitals/I&O/Wt Last Vital Signs Temp 99.5 F 03/14/23 18:00 Pulse 105 H 03/14/23 20:00 Resp 18 03/14/23 21:01 BP 167/105 03/14/23 18:00 Pulse Ox 92 03/14/23 20:00 O2 Del Method Nasal Cannula 03/14/23 20:00 O2 Flow Rate 2 03/14/23 20:00 03/14/23 03/14/23 03/14/23 06:59 14:59 22:59 Intake Total 1730.000 / 4410.890 1673.2 / 1673.2 1276.8 / 2950.0 Output Total 1650 / 7100 2325 / 2325 Balance 80.000 / -2689.110 -651.8 / -651.8 1276.8 / 625.0 Weight last 48 hrs Weight 129.228 kg Weight 129.727 kg Physical Exam Narrative: General: No acute distress, AO x3 HEENT: PERRLA, pupils bilaterally equal and reactive, pallors not present sitting up in bed, nasal cannula in place. Chest: Normal vesicular breath sounds, no added sounds, equal good air entry bilaterally CVS: S1-S2 regular, no murmurs, no tachycardia, no gallops, no rubs Abdomen: Soft, nontender, no organomegaly, bowel sounds present Neuro: No focal deficits, no facial deformity, AO x3, power 5/5 in all limbs Extremities: Amputated bilateral great toes. No open sores or ulcers over the foot currently. No other skin lesions. Urinary Catheter Management: Skinner: Cath Placed During This Visit: yes Reason for Continuing Indwelling Catheter: Accurate Measurement of Urinary Output in Critically Ill Patients Urinary Catheter Date of Insertion: 03/11/23 Urinary Catheter Time of Insertion: 09:05 Data 03/15/23 04:32 03/15/23 04:32 Micro: Microbiology 03/13/23 12:10 Gram Stain - Final Sputum - Expectorated Sputum Sputum Culture - Preliminary 03/13/23 11:05 Blood Culture - Preliminary Blood NEGATIVE TO DATE 03/13/23 11:16 Blood Culture - Preliminary Blood NEGATIVE TO DATE [facility] [address] [place] [address] DR. ROXANE GARIBAY, APPLIED STATISTICIAN NAME: Michelle Morales LOC: ICU U #: [id number] AGE/SX: 37/F ROOM: [facility] RE03/11/[address]: Lane Ho MD : 1985 BED: 1 DIS: FAX #: STATUS: ADM IN TLOC: Spec #: [id number] Ninfa: 03/11/23 Status: COMP Req #: [id number] Recd: 03/11/23-[address]: Jimmie Lubin MD Src: Blood SpDesc: Ordered: Bcult Procedure Result Verified Site Blood Culture Final 03/13/23-0461 4 OF 4 BOTTLES POSITIVE DIRECT GRAM STAIN: GRAM POSITIVE COCCI IN CLUSTERS IDENTIFICATION BY DIRECT PCR Detection of mecA indicates presence of Methicillin Resistant Staphylococcus spp. Organism 1 Methicillin Resis Staph Aureus Growth IN 4 BOTTLES Gram Stain Charge Charge for Gram Stain CRITICAL RESULT YES/NO: YES CRITICAL CALLED BY: RT TO AND READ BACK BY: OSWALDO DATE: 03/11/23 TIME: 1733 MRSA M.I.C. RX --------- ------ * Ampicillin >8 R * Ciprofloxacin >2 R * Clindamycin >4 R * Erythromycin >4 R * Gentamicin <=4 S * Levofloxacin 4 I * Linezolid 4 S * Oxacillin >2 R * Penicillin >8 R * Rifampin <=1 S * Tetracycline <=4 S * Trimethoprim/Sulfamethoxazole <=0.5/9.5 S Vancomycin 2 S Daptomycin 1 S Blood Culture Preliminary (changed) 03/11/23-1733 2 OF 4 BOTTLES POSITIVE DIRECT GRAM STAIN: GRAM POSITIVE COCCI IN CLUSTERS IDENTIFICATION BY DIRECT PCR Detection of mecA indicates presence of Methicillin Resistant Staphylococcus spp. SENSITIVITIES TO FOLLOW Organism 1 Staphylococcus aureus Growth 2 BOTTLES Gram Stain Charge Charge for Gram Stain CRITICAL RESULT YES/NO: YES CRITICAL CALLED BY: RT TO AND READ BACK BY: OSWALDO DATE: 03/11/23 TIME: 1733 [facility] [address] [place] [address] DR. ROXANE GARIBAY, APPLIED STATISTICIAN NAME: Michelle Morales LOC: ICU U #: [id number] AGE/SX: 37/F ROOM: ICU04 RE03/11/[address]: Lane Ho MD : 1985 BED: 1 DIS: FAX #: STATUS: ADM IN TLOC: Spec #: [id number] Ninfa: 03/11/23 Status: COMP Req #: [id number] Recd: 03/11/[address]: Jimmie Lubin MD Src: Blood SpDesc: Ordered: Bcult Procedure Result Verified Site Blood Culture Final 03/13/23142 4 OF 4 BOTTLES POSITIVE DIRECT GRAM STAIN: GRAM POSITIVE COCCI IN CLUSTERS SENSITIVITIES ON [id number] Organism 1 Methicillin Resis Staph Aureus Growth IN 4 BOTTLES Gram Stain Charge Charge for Gram Stain Blood Culture Preliminary (changed) 03/12/23 NEGATIVE TO DATE Blood Culture Preliminary (changed) 03/11/23 SPECIMEN COLLECTED NOTICE OF CONFIDENTIALITY The recipient of this confidential patient information is prohibited from disclosing the information to any other alliance party and is required to destroy the information after the stated need has been fulfilled. Anyone receiving this data in error should notify the [facility] immediately by telephone: . Thank you for your cooperation. [facility] [address] [place] [id number] [address] ORXANE GARIBAY, APPLIED STATISTICIAN NAME: Michelle Morales LOC: ICU U #: [id number] AGE/SX: 37/F ROOM: ICU04 RE03/11/[address]: Lane Ho MD : 1985 BED: 1 DIS: FAX #: STATUS: ADM IN TLOC: Spec #: [id number] Ninfa: 03/11/23 Status: COMP Req #: [id number] Recd: 03/11/[address]: Jimmie Lubin MD Src: Urine CC SpDesc: Ordered: UC Procedure Result Verified Site Urine Culture Final 03/12/23 >100,000 COLS/ML Mixed urogenital sylvia on day 1 END OF REPORT [facility] [address] [place], [place] [address] DR. ROXANE GARIBAY, APPLIED STATISTICIAN NAME: Michelle Morales LOC: ICU U #: [id number] AGE/SX: 37/F ROOM: ICU04 RE03/11/[address]: Lane Ho MD : 1985 BED: 1 DIS: FAX #: STATUS: ADM IN TLOC: Spec #: [id number] Ninfa: 03/13/236 Status: RES Req #: [id number] Recd: 03/13/[address]: Lane Ho MD Src: Blood SpDesc: Ordered: Bcult Procedure Result Verified Site Blood Culture Preliminary 03/14/23 NEGATIVE TO DATE Blood Culture Preliminary (changed) 03/13/23 SPECIMEN COLLECTED [facility] [address] [place] [address] DR. ROXANE GARIBAY, APPLIED STATISTICIAN NAME: Michelle Morales LOC: ICU U #: [id number] AGE/SX: 37/F ROOM: [facility] RE03/11/[address]: Lane Ho MD : 1985 BED: 1 DIS: FAX #: STATUS: ADM IN TLOC: Spec #: [id number] Ninfa: 03/13/231210 Status: RES Req #: [id number] Recd: 03/13/231224 Sub Dr: Lane Ho MD Src: Sputum SpDesc: Expec Sput Ordered: SPU Cult & GS Procedure Result Verified Site Gram Stain Final 03/13/23-1455 Result MODERATE WHITE BLOOD CELLS RARE GRAM POSITIVE COCCI IN PAIRS Sputum Culture Preliminary 03/14/23-1142 SCANT NORMAL SYLVIA ON DAY 1 [place] [address] Ultrasound Report Signed Patient: Michelle Morales Unit #: [id number] : 1985 Age/Sex: 37 / F ADM Date: 03/11/23 Loc: ICU Room/Bed: [place] [address]: Lane Ho MD Ordering Provider/Ordering MD: Lane Ho MD Date of Service: 03/13/23 Procedure(s): [place] [id number] Accession Number(s): [id number] Report Number: [id number] PROCEDURE INFORMATION: Exam: US Duplex Lower Extremity Veins, Bilateral Exam date and time: 03/13/2023 4:20 PM Age: 37 years old Clinical indication: Swelling (edema) of limb; Lower extremity, right; Additional info: Dvt TECHNIQUE: Imaging protocol: Real-time duplex ultrasound of the bilateral extremities with 2-D teague scale, color Doppler flow and spectral waveform analysis including responses to compression and other maneuvers (when performed) with image documentation. Complete exam focused on the lower extremity veins. COMPARISON: CT chest abdpel w/*[id number] 03/11/2023 2:56 AM FINDINGS: Right deep veins: Unremarkable. The common femoral, femoral, proximal profunda femoral and popliteal veins are patent without thrombus. Normal Doppler waveforms. Normal compressibility and/or augmentation response.? Left deep veins: Unremarkable. The common femoral, femoral, proximal profunda femoral and popliteal veins are patent without thrombus. Normal Doppler waveforms. Normal compressibility and/or augmentation response.? Superficial veins: Bilateral saphenofemoral junctions are patent without thrombus. Soft tissues: Unremarkable. US/[place] [id number] IMPRESSION: No evidence of deep vein thrombosis. Signed Patient: Michelle Morales Unit #: [id number] : 1985 Age/Sex: 37 / F ADM Date: 03/11/23 Loc: ICU Room/Bed: [place] [address]: Lane Ho MD Ordering Provider/Ordering MD: Lane Ho MD Date of Service: 03/13/23 Procedure(s): CT angio chest PE protcl [id number] Accession Number(s): [id number] Report Number: [id number] WS: [id number] CTA OF THE CHEST WITH PULMONARY EMBOLISM PROTOCOL TECHNIQUE: High-resolution contrast enhanced CTA of the chest with coronal and sagittal reformatted images with pulmonary embolism protocol. MIP images are also reviewed. CLINICAL INFORMATION: pe COMPARISON: CT 03/11/2023 DLP: 455.[address] scans at [facility] use at least one of these dose optimization techniques: automated exposure control; mA and/or kV adjustment per patient size (includes targeted exams where dose is matched to clinical indication); or iterative reconstruction. FINDINGS: Some images degraded by body habitus. Proximal main pulmonary arteries are normal. Normal visualized segmental and proximal subsegmental pulmonary arteries. Multiple new bilateral groundglass subpleural and LEFT wedge-shaped peripheral opacities with suggestion of early cavitation in some areas. Some of these opacities are closely associated with feeding vessels can be seen with septic emboli although nonspecific. Additional considerations include bacterial and fungal pneumonia. Small RIGHT greater than LEFT pleural effusions. Compressive atelectasis RIGHT lower lobe with air bronchograms. Prominent mediastinal lymph nodes likely reactive. No axillary lymphadenopathy. Shallow inspiration. Thoracolumbar scoliosis with dorsal fixation rods. IMPRESSION: 1.? No evidence of proximal pulmonary embolus. 2.? Multiple peripheral and wedge-shaped groundglass opacities some with suggestion of early cavitation can be seen with septic emboli. Additional considerations include fungal or bacterial pneumonia. Opacities are new since 03/11/2023 3.? Small RIGHT greater than LEFT pleural effusions with compressive atelectasis with air bronchograms in the RIGHT lower lobe. 4.? Mediastinal lymphadenopathy likely reactive. 5.? Thoracolumbar scoliosis with dorsal mata fixation. Notified Lane Ho MD at 03/13/2023 4:16 PM. Launch?[facility] [address] [facility] [place] [address] CT Scan Report Signed Patient: Michelle Morales Unit #: [id number] : 1985 Age/Sex: 37 / F ADM Date: 03/11/23 Loc: ICU Room/Bed: [place] [address]: Lane oH MD Ordering Provider/Ordering MD: Lane Ho MD Date of Service: 03/13/23 Procedure(s): CT thoracic spine w con [id number] Accession Number(s): [id number] Report Number: [id number] WS: [id number] CT THORACIC SPINE TECHNIQUE: Contrast-enhanced CT of the thoracic spine with coronal and sagittal reformatted images. CLINICAL INFORMATION: possible discitis COMPARISON: None. DLP: 2744.[address] [facility] use at least one of these dose optimization techniques: automated exposure control; mA and/or kV adjustment per patient size (includes targeted exams where dose is matched to clinical indication); or iterative reconstruction. FINDINGS: S-shaped thoracic scoliosis. Mild thoracic kyphosis. Prior postoperative changes dorsal mata fixation extending from T3-L2. Pedicle screw fixation at L1-2. No evidence of discitis or osteomyelitis in the thoracic spine. Vertebral body heights are well-maintained. Fusion of the thoracic disc spaces. No paraspinal fluid collections. Adrenal glands appear normal. Dorsal interconnecting rods appear intact. Progressed partially visualized patchy pulmonary infiltrates throughout both lungs. Small RIGHT pleural effusion with compressive atelectasis RIGHT lower lobe is new from previous with air bronchograms in the RIGHT lower lobe. IMPRESSION: 1.? Progressed partially visualized patchy and hazy? pulmonary opacities. Recommend correlation for pneumonia. These appear more prominent in a perihilar distribution. 2.? New small RIGHT pleural effusion with compressive atelectasis RIGHT lower lobe partially visualized with air bronchograms. 3.? No evidence of discitis Launch?[facility] [place] [address] CT Scan Report Signed Patient: Michelle Morales Unit #: [id number] : 1985 Age/Sex: 37 / F ADM Date: 03/11/23 Loc: ICU Room/Bed: [place] [address]: Lane Ho MD Ordering Provider/Ordering MD: Lane Ho MD Date of Service: 03/13/23 Procedure(s): CT lumbar spine w con [id number] Accession Number(s): [id number] Report Number: [id number] WS: [id number] CT LUMBAR SPINE TECHNIQUE: Contrast-enhanced CT of the lumbar spine with coronal and sagittal reformatted images. CLINICAL INFORMATION: possible discitis COMPARISON: None. DLP: 2744.[address] [facility] use at least one of these dose optimization techniques: automated exposure control; mA and/or kV adjustment per patient size (includes targeted exams where dose is matched to clinical indication); or iterative reconstruction. FINDINGS: In keeping with the thoracic numbering convention, pedicle screw fixation at L1 and L2. Lumbar vertebral bodies labeled L1-L6 No evidence of discitis or osteomyelitis. L1-L2: Pedicle screw fixation. L2-L3: Pedicle screw fixation. Moderate facet arthropathy. Spinal canal and foramen are patent. L3-L4: Slight narrowing? LEFT subarticular recess. Moderate facet arthropathy. Spinal canal is patent. Foramen are patent. L4-L5: Moderate facet arthropathy. Spinal canal and foramen are patent. L5-L6: Mild disc bulging. Mild central canal stenosis. Moderate facet arthropathy with ligament flavum hypertrophy. Foramen are patent. L6-S1:LEFT paracentral disc bulging. Spinal canal and foramen are patent. Visualized pelvic bony structures: Paravertebral soft tissues: Normal Filling defect in the LEFT common iliac and internal iliac vein suspicious for thrombus. Recommend further evaluation with ultrasound IMPRESSION: Images somewhat degraded by body habitus and spinal hardware 1.? No evidence of discitis or osteomyelitis. No evidence of paravertebral abscess. 2.? Filling defect in the LEFT common iliac and internal iliac vein suspicious for thrombus. Recommend further evaluation with LEFT lower extremity ultrasound 3. ? Mild central canal stenosis L5-L6 with moderate facet arthropathy ligamentum flavum hypertrophy. 4.? Tiny LEFT paracentral protrusion L6-S1. Notified Lane Ho MD at 03/13/2023 3:[address] [address] [address] Scan Report Signed Patient: Michelle Morales Unit #: [id number] : 1985 Age/Sex: 37 / F ADM Date: 03/10/23 Loc: ER Room/Bed: Attending Dr: Ordering Provider/Ordering MD: Prosper Cohen DO Date of Service: 03/11/23 Procedure(s): CT chest abdpel w/*[id number] Accession Number(s): [id number] Report Number: [id number] PROCEDURE INFORMATION: Exam: CT Chest With Contrast; Diagnostic Exam date and time: 03/11/2023 2:56 AM Age: 37 years old Clinical indication: Abnormal findings; Abnormal lab test; Other: N/a; Other: Dka/elevated lactic acid; Prior surgery; Surgery date: 6+ months; Surgery type: Alarcon mata. Iud; Patient HX: Fever with elevated wbc and lactic acid. ; Additional info: Fever, leukocytosis, dka, sepsis TECHNIQUE: Imaging protocol: Diagnostic computed tomography of the chest with contrast. Radiation optimization: All CT scans at this facility use at least one of these dose optimization techniques: automated exposure control; mA and/or kV adjustment per patient size (includes targeted exams where dose is matched to clinical indication); or iterative reconstruction. Contrast material: OMNI 350; Contrast volume: 100 ml; Contrast route: INTRAVENOUS (IV);? REPORTING DATA: Count of CT and Cardiac NM exams in prior 12 months: This patient has received 0 known CTs and 0 known cardiac nuclear medicine studies in the 12 months prior to the current study. COMPARISON: CR (CHEST, ) 03/11/2023 2:35 AM RADIATION DOSE METRICS: Total DLP (mGy-cm): 1789.7 FINDINGS: Lungs: There are nodular ground-glass opacities seen in the hemithoraces bilaterally in a predominantly peripheral distribution, a pattern that can be seen with cryptogenic organizing pneumonia. Other possibilities including nonspecific interstitial pneumonia, UIP, alveolar proteinosis considerations. Pleural spaces: Unremarkable. No pneumothorax. No pleural effusion. Heart: Unremarkable. No cardiomegaly. No pericardial effusion. Lymph nodes: Unremarkable. No enlarged lymph nodes. Vasculature: Unremarkable. No aortic aneurysm.? Bones/joints: [place] Rite rods extend from T2 through L1 stabilizing an S-shaped curvature of the axial skeleton. Soft tissues: Unremarkable. PROCEDURE INFORMATION: Exam: CT Abdomen And Pelvis With Contrast Exam date and time: 03/11/2023 2:56 AM Age: 37 years old Clinical indication: Abnormal findings; Abnormal lab test; Other: N/a; Other: Dka/elevated lactic acid; Prior surgery; Surgery date: 6+ months; Surgery type: Alarcon mata. Iud; Patient HX: Fever with elevated wbc and lactic acid. ; Additional info: Fever, leukocytosis, dka, sepsis TECHNIQUE: Imaging protocol: Computed tomography of the abdomen and pelvis with contrast. Radiation optimization: All CT scans at this facility use at least one of these dose optimization techniques: automated exposure control; mA and/or kV adjustment per patient size (includes targeted exams where dose is matched to clinical indication); or iterative reconstruction. Contrast material: OMNI 350; Contrast volume: 100 ml; Contrast route: INTRAVENOUS (IV);? REPORTING DATA: Count of CT and Cardiac NM exams in prior 12 months: This patient has received 0 known CTs and 0 known cardiac nuclear medicine studies in the 12 months prior to the current study. COMPARISON: CR (CHEST, ) 03/11/2023 2:35 AM RADIATION DOSE METRICS: Total DLP (mGy-cm): 1789.7 FINDINGS: Liver: There is mild hypoattenuation of the hepatic parenchyma with fatty infiltration. The liver is prominent measuring approximately 25 cm craniocaudal dimension. Gallbladder and bile ducts: Normal. No calcified stones. No ductal dilation. Pancreas: Normal. No ductal dilation. Spleen: Normal. No splenomegaly. Adrenal glands: Normal. No mass. Kidneys and ureters: Normal. No hydronephrosis. Stomach and bowel: Unremarkable. No obstruction. No mucosal thickening. Appendix: No evidence of appendicitis. Intraperitoneal space: Unremarkable. No free air. No significant fluid collection. Vasculature: Unremarkable. No abdominal aortic aneurysm. Lymph nodes: Unremarkable. No enlarged lymph nodes. Urinary bladder: Unremarkable as visualized. Reproductive: An IUD is present. Bones/joints: Unremarkable. No acute fracture. Soft tissues: Unremarkable. CT/CT chest abdpel w/*[id number] IMPRESSION: Nodular ground-glass opacities in a predominantly peripheral distribution compatible with an interstitial pneumonia versus cryptogenic organizing pneumonia. ? ? IMPRESSION: 1. ? There are no acute abdominal findings. 2. ? Hepatomegaly and mild fatty infiltration of the liver [address] [address] [address] Scan Report Signed Patient: Michelle Morales Unit #: [id number] : 1985 Age/Sex: 37 / F ADM Date: 03/10/23 Loc: ER Room/Bed: Attending Dr: Ordering Provider/Ordering MD: Santiago Mendez NP Date of Service: 03/11/23 Procedure(s): CT head wo con* [id number] Accession Number(s): [id number] Report Number: [id number] PROCEDURE INFORMATION: Exam: CT Head Without Contrast Exam date and time: 03/11/2023 12:26 AM Age: 37 years old Clinical indication: Altered mental status/memory loss; Confusion or disorientation; Patient HX: Patient arrived via EMS initially for possible stroke. Patient appears to be in acute delirium with glucose over 500. TECHNIQUE: Imaging protocol: Computed tomography of the head without contrast. Radiation optimization: All CT scans at this facility use at least one of these dose optimization techniques: automated exposure control; mA and/or kV adjustment per patient size (includes targeted exams where dose is matched to clinical indication); or iterative reconstruction. REPORTING DATA: Count of CT and Cardiac NM exams in prior 12 months: This patient has received 0 known CTs and 0 known cardiac nuclear medicine studies in the 12 months prior to the current study. COMPARISON: No relevant prior studies available. RADIATION DOSE METRICS: Total DLP (mGy-cm): 881.88 FINDINGS: Brain: No acute intracranial hemorrhage or mass effect. ?No definite acute infarct by CT. MRI would be more sensitive/specific for detection, as clinically directed. Cerebral ventricles: Ventricle size is normal for age. Paranasal sinuses: 20 mm retention cyst or polyp in the inferior right maxillary sinus. ?Minimal mucosal thickening in the sphenoid sinus. Mastoid air cells: No significant acute finding. Bones/joints: No definite acute skull fracture. Soft tissues: No significant acute finding. CT/CT head wo con* [id number] IMPRESSION: 1. ? No acute intracranial hemorrhage or mass effect. 2. ? No definite acute infarct by CT, see above. 3. ? Other findings discussed above. ? ? A&P Assessment and plan (1) MRSA (methicillin resistant Staphylococcus aureus) septicemia: (2) Septic embolism: Plan 37-year-old lady with multiple comorbidities as listed above, history of recurrent MRSA skin infections and osteomyelitis, most recently May 26, 2022, presenting currently with MRSA septicemia with septic embolization of the lungs. Blood culture positive from 03/11/2023 Follow-up blood culture from March 13, 2023 thus far negative to date. Continue vancomycin with a goal trough of 15-20 for treatment of MRSA septicemia. CT of the chest with bilateral infiltrates with some developing cavitation, highly suspicious for septic embolization. Patient nervous about the use of vancomycin given prior development of acute kidney injury. Counseled that daptomycin would not be a suitable drug in the setting due to lung involvement. She is agreeable to continuing vancomycin right now with close trough monitoring and renal function monitoring. High suspicion for endocarditis given evidence of septic embolization , recommend to obtain L[place] Currently anticipating at least 6 weeks of IV antibiotics, further plan depending on results of LONDON Negative respiratory viral panel Can continue meropenem empirically for a short course of 7 to 10 days for possibility of potential aspiration. Await sputum culture. Favor septic emboli as the likely cause of lung infiltrates at this time. Coding Level of Care Code Acute Code for Chg Fwd High MDM includes number and complexity of problems actively addressed during encounter, amount and/or complexity of data reviewed/ordered and described risk of complication, morbidity or mortality of management as documented Diagnoses MRSA (methicillin resistant Staphylococcus aureus) septicemia A41.02 Septic embolism I76
[2023-03-14 10:07] LABS: Reflex FDPQ test REFLEX FDP QUEST TES
[2023-03-14 10:14] LABS: Basophils # 0.1 10^3/uL (0.0-0.1); Basophils % 0.4 %; Eosinophils # 0.1 10^3/uL (0.0-0.8); Eosinophils % 0.7 %; Hematocrit 23.7 % (36-47); Lymphocytes # 1.4 10^3/uL (0.8-4.8); Lymphocytes % 11.7 %; Mean Corpuscular HGB Conc 32.5 g/dL (30-55); Mean Corpuscular Hemoglobin 29.1 pg (27-33); Mean Corpuscular Volume 89.4 fl (85-98); Mean Platelet Volume 9.4 fL (7.4-10.4); Monocytes # 0.8 10^3/uL (0.2-0.9); Monocytes % 6.9 %; Neutrophils % 77.6 %; Nucleated Red Blood Cells % 0 %; Platelet Count 206 10^3/cmm (157-399); Red Blood Count 2.65 10^6/uL (3.85-5.65); White Blood Count 12.12 10^3/uL (3.29-11.43)
[2023-03-14 10:24] LABS: INR 1.29 (0.8-1.2)
[2023-03-14 10:25] LABS: Estmated Average Glucose 249; Hemoglobin A1C 10.3 % (4.0-6.0)
[2023-03-14 10:25] LABS: Fibrinogen 868 mg/dL (174-498)
[2023-03-14 10:26] LABS: Partial Thromboplastin Time 53.9 SECONDS (23.9-36.7)
[2023-03-14 10:28] LABS: Chol HDL Ratio 29.91 mg/dL (0.0-4.40); Cholesterol 329 mg/dL (0-200); HDL Cholesterol 11 mg/dL (60-100)
[2023-03-14 10:35] LABS: D Dimer 8.24 ug/mLFEU (0-0.59)
[2023-03-14 10:41] LABS: Triglycerides 1188 mg/dL (0-150); VLDL Cholestrol Calculation 238 mg/dL (0-30)
[2023-03-14 11:03] LABS: LDL Cholesterol Direct 32 mg/dL (0-100)
[2023-03-14 11:04] LABS: Folate Level 16.6 ng/mL (4.8-37.3)
[2023-03-14 11:28] LABS: Glucose Point of Care 142 mg/dL (70-110)
[2023-03-14 11:48] LABS: Glucose Point of Care 139 mg/dL (70-110)
[2023-03-14] MEDS: potassium chloride ER 20 mEq Tablet 80 MEQ PO (12:11)
--- NOTE | 2023-03-14 14:31 | PM.PN ---
Subjective Subjective: No acute events overnight. Today morning patient seen sitting in recliner. She states she is feeling better. Denies any nausea, vomiting, headache. States breathing is slightly better. She continues to remain on 4 L oxygen supplementation saturating more than 95%. Around 8.7 L of urine last 24 hours. Blood work shows white count of 12.1, hemoglobin of 7.7, D-dimer improving down to 8.2, CMP showing sodium with hyponatremia 126, hypokalemia potassium of 3.3, creatinine of 0.9 which is improving, A1c of 10.3 Vitals/I&O/Wt Last Vital Signs Temp 98.5 F 03/14/23 14:00 Pulse 103 H 03/14/23 14:00 Resp 23 H 03/14/23 14:00 BP 165/98 03/14/23 14:00 Pulse Ox 94 03/14/23 14:00 O2 Del Method Nasal Cannula 03/14/23 14:00 O2 Flow Rate 4 03/14/23 14:00 03/13/23 03/14/23 03/14/23 22:59 06:59 14:59 Intake Total 1430 / 2680.890 1730.000 / 4410.890 1673.2 / 1673.2 Output Total 4200 / 5450 1650 / 7100 2325 / 2325 Balance -2770 / -2769.110 80.000 / -2689.110 -651.8 / -651.8 Weight last 48 hrs Weight 129.228 kg Weight 129.727 kg Physical Exam Narrative: General: No acute distress, AO x3, NC oxygen supplementation, sick appearing, obese HEENT: PERRLA, pupils bilaterally equal and reactive Chest: Diffuse rhonchi all over lung, normal vascular breath sounds bilaterally over lower lung chatman, coarse crackles, right more than left CVS: S1-S2 regular, no murmurs, tachycardia, no gallops, no rubs Abdomen: Soft, nontender, no organomegaly, bowel sounds present, morbidly obese Neuro: No focal deficits, no facial deformity, AO x3, power 5/5 in all limbs Urinary Catheter Management: Skinner: Cath Placed During This Visit: yes Reason for Continuing Indwelling Catheter: Accurate Measurement of Urinary Output in Critically Ill Patients Urinary Catheter Date of Insertion: 03/11/23 Urinary Catheter Time of Insertion: 09:05 Data 03/14/23 09:56 03/14/23 07:59 Micro: Microbiology 03/13/23 12:10 Gram Stain - Final Sputum - Expectorated Sputum Sputum Culture - Preliminary 03/13/23 11:05 Blood Culture - Preliminary Blood NEGATIVE TO DATE 03/13/23 11:16 Blood Culture - Preliminary Blood NEGATIVE TO DATE 03/11/23 01:50 Blood Culture - Final Blood Methicillin Resis Staph Aureus 03/11/23 01:50 Blood Culture - Final Blood Methicillin Resis Staph Aureus A&P Assessment and plan (1) Severe sepsis: Ruled in with tachycardia, bacteremia, started organ dysfunction with acute kidney injury, hypoxia, resolving altered mental status. Keep mean artery pressure 65, oxygen saturation over 90%. Follow-up blood cultures. Repeat blood cultures today. Blood culture from 03/10 positive for MRSA. (2) MRSA bacteremia: Blood cultures from 03/10 positive. Repeat blood cultures sent on 03/13. Unclear source. Patient gives history of Staphylococcus bacteremia in past from osteomyelitis of bilateral great toes. Does give history of hardware in spine for scoliosis. No recent skin breakdown, animal bite. Possible MRSA pneumonia with high concerns for septic emboli to the lungs. Appreciate CT lumbar and thoracic spine results which was negative for discitis or osteomyelitis. Echocardiogram pending. Lungs Given concerns for septic emboli to there is a high concern for possible infective endocarditis. We will consult cardiology for LONDON. Patient is agreeable. Appreciate ID recommendations. (3) Hypoxia: Most likely in setting of MRSA pneumonia along with septic emboli. PE ruled out. Aggressive pulmonary toilet with incentive spirometry and flutter valve. Pulmicort twice daily, ipratropium, Xopenex every 6 hourly. Keep oxygen saturation over 90%. Out of bed to chair. Sputum culture pending. Follow-up results. Continue with vancomycin along with IV meropenem. Dose antibiotics renally. (4) Bilateral interstitial pneumonia: With concerns for septic emboli. (5) ADRY (acute kidney injury): Baseline creatinine around 1. Resolved. Continues to have metabolic acidosis. Medical reconciliation done for nephrotoxic drugs. Strict input output charting. Continue to monitor fluid status. Hold off on IV fluids. Patient around 6 L positive now. Good urine output last 24 hours. Possibly repeat oral Lasix later in the day depending on urine output. Monitor Vanco trough levels. (6) Hyponatremia: In combination with pseudohyponatremia with hyperglycemia. Start oral salt tablets 1 g 3 times daily. Monitor BMP daily for now. (7) Diabetes: DKA has resolved. Anion gap closed. As per patient she used to be on insulin pump which so far has not been functioning well so patient has stopped using currently. Currently she was taking 45 units of Lantus along with 40 to 50 units of Humalog with each meals. A1c more than 10. Continue with insulin sliding scale at high-dose protocol before meals and at bedtime, Humalog 10 units premeals. Increase Lantus to 45 units twice daily. Hypoglycemia protocol. Continue with clear liquid carb consistent diet for now. (8) Acute encephalopathy: Resolved. (9) DKA (diabetic ketoacidosis): Resolved. Anion gap closed. (10) Hypokalemia: Replace with 80 mg of oral potassium. Monitor daily (11) Hypomagnesemia: Received placement. Follow-up magnesium level. Monitoring daily (12) Familial hypertriglyceridemia: Chronic. As per patient history of familial hypertriglyceridemia. Failed multiple outpatient medications. States baseline triglyceride levels are usually over 10,000. We will request outpatient documents. Triglyceride level more than thousand. Stable. Given chronic triglyceride level being high for now we will stop the insulin drip even if triglyceride levels are more than 500. Continue to monitor triglyceride levels daily. Plan Hypertension: Goal blood pressure less than 140/90 mmHg. Blood pressure is elevated to more than 170. Continue with amlodipine 5 mg oral daily. Continues to have tachycardia. For now we will hold off on rate limiting medications. Filling defect in left common iliac and internal iliac: High suspicion of thrombus. PE and lower limb DVT is ruled out. Cannot rule out external compression in setting of possible May-Thurner syndrome. We will plan for MRI and MRV of the abdomen which we can plan to coordinate with L[place]. Continue with heparin drip for now. Familial hyperlipidemia, Chronic pancreatitis, Chronic back pain Scoliosis: Postoperative. Full code Clear liquid diet Heparin drip will suffice as DVT prophylaxis. Protonix for PUD prophylaxis. Patient's care plan discussed in detail with patient and her at bedside. All the questions were answered. Attestations Medical Necessity Statement*: Requires further hospitalization for management of MRSA bacteremia with high concerns for hypoxia in setting of septic emboli, hyponatremia, hypomagnesemia and kalemia in a patient with severe uncontrolled type 2 diabetes mellitus while infective endocarditis is ruled out. Diagnoses Severe sepsis A41.9; R65.20 MRSA bacteremia R78.81; B95.62 Hypoxia R09.02 Bilateral interstitial pneumonia J84.9 ADRY (acute kidney injury) N17.9 Hyponatremia E87.1 Diabetes E11.9 Acute encephalopathy G93.40 DKA (diabetic ketoacidosis) E11.10 Hypokalemia E87.6 Hypomagnesemia E83.42 Familial hypertriglyceridemia E78.1
[2023-03-14] MEDS: sodium chloride 1 gm Tablet PO ×2 (15:11→20:13)
--- NOTE | 2023-03-14 16:53 | USCV_ITS ---
Michelle Morales Age: 37 Gender: F : 1985 Exam Date: 03/14/2023 06:27 Ordering Phys: Lane Ho MD Technologist: ASIA Exam Location: [facility] [place] Indication: ? veg BP: 163 / 91 HR: 95 Rhythm: Sinus Technical Quality: Adequate MEASUREMENTS (Male / Female) Normal Values 2D ECHO LV Diastolic Diameter PLAX 4.9 cm 4.2 - 5.9 / 3.9 - 5.3 cm LV Systolic Diameter PLAX 3.1 cm IVS Diastolic Thickness 0.9 cm 0.6 - 1.0 / 0.6 - 0.9 cm IVS Systolic Thickness 1.3 cm LVPW Diastolic Thickness 1.1 cm 0.6 - 1.0 / 0.6 - 0.9 cm LVPW Systolic Thickness 1.4 cm LVOT Diameter 1.7 cm LV Ejection Fraction 2D Teich 65.5 % LV Ejection Fraction MOD 2C 73.2 % LV Ejection Fraction 2C AL 73.5 % LA Diameter 3.4 cm M-MODE Aortic Annulus Diameter 3.2 cm LA Ao Ratio MM 1.2 MV E Point Septal Separation 1.0 cm DOPPLER AV Peak Velocity 178.0 cm/s LVOT Peak Velocity 134.0 cm/s AV Area Cont Eq vti 1.5 cm squared AV Area Cont Eq pk 1.8 cm squared MV Area PHT 5.0 cm squared Mitral E to A Ratio 1.5 MV E' Velocity 67.0 cm/s Mitral E to MV E' Ratio 13.5 Mitral E to LV E' Lateral Ratio 11.0 Mitral E to LV E' Septal Ratio 17.8 TR Peak Velocity 153.7 cm/s TR Peak Gradient 9.4 mmHg TV Peak E Velocity 72.0 cm/s Right Atrial Pressure 3.0 mmHg Pulmonary Artery Systolic Pressu 12.4 mmHg RV Acceleration Time 0.1 s FINDINGS Left Ventricle Left ventricle is normal in size. LV systolic function is normal with EF of 55 to 60%. No regional wall motion abnormalities are seen. Right Ventricle Normal in size and function Right Atrium Normal in size Left Atrium Normal in size Mitral Valve Structurally normal mitral valve. Mild mitral regurgitation. Aortic Valve Structurally normal aortic valve. No significant stenosis or regurgitation seen. Tricuspid Valve Echogenic structure noted on the base of tricuspid valve. However visualization is limited. Can not rule out vegetation. Mild tricuspid regurgitation. Insufficient TR jet to calculate RVSP Pulmonic Valve Not well visualized Pericardium Normal Aorta Normal in size IVC Appears to be normal CONCLUSIONS LV systolic function is normal with EF 55 to 60%. Mild mitral regurgitation. Echogenic structure noted on the base of tricuspid valve. However visualization is limited. Cannot rule out vegetation. Mild tricuspid regurgitation. No comparison studies are available. Edvin Martin MD (Electronically Signed) Final Date: 14 March 2023 12:44 S
[2023-03-14 17:08] LABS: Glucose Point of Care 210 mg/dL (70-110)
--- NOTE | 2023-03-14 17:08 | P.CONIM_ITS ---
Providers/Reason For Consult Consulting Physician/Specialty*: Edvin Martin MD/ Cardiology Reason for Consult*: Rule out vegetations/endocarditis Requesting Physician: Dr Ho Attending Physician: Lane Ho MD History of Present Illness History of Present Illness Michelle Morales is a 37 year old female With past medical history of diabetes was admitted with sepsis. She also had MRSA bacteremia and was taken emboli to the lungs. Suspicion for endocarditis.ECHO shows possible echogenic mass on the transesophageal echocardiogram Review of Systems General: Reports: 10 or more systems reviewed and unremarkable except in HPI and below Const: Denies: fever(s), chills or body aches Eyes: Denies: change in vision, blurry vision or photophobia ENMT: Reports: hoarseness; Denies: throat pain, enlarged tonsils, odynophagia or nasal congestion Card: Denies: chest pain, palpitations, irregular heart rhythm, edema, swelling of feet/ankles, lightheadedness, pre-syncope, dyspnea on exertion or orthopnea Resp: Reports: dyspnea GI: Denies: abdominal pain, nausea, vomiting, hematemesis, coffee ground emesis, dysphagia, heartburn, diarrhea, constipation, GI cramping, change in stool character, hematochezia or melena : Denies: flank pain, difficulty voiding, dysuria, urinary frequency, urinary urgency, urinary hesitancy or hematuria Musc: Denies: neck pain, back pain, extremity pain, joint swelling, joint warmth or deformity Neuro: Denies: headache(s), numbness in extremities, weakness in extremities, sensory changes, difficulty walking, frequent falls, dizziness, vertigo, behavioral changes, Slurred speech present or seizure-like activity Dallin/Lymph: Denies: easy bruising or easy bleeding Medications/Allergies Home Medications Medication Instructions Recorded Confirmed Last Taken Type Delta-8 Thc Gummies 8 mg PO DAILY PRN 03/11/23 03/11/23 Unknown History pancreatitis/back pain amlodipine 5 mg tablet 5 mg PO DAILY 03/11/23 03/11/23 Unknown History aspirin 325 mg tablet 325 - 650 mg PO Q6H PRN Pain 03/11/23 03/11/23 Unknown History dicyclomine 20 mg tablet 20 mg PO Q6H PRN Abdominal Pain 03/11/23 03/11/23 Unknown History ibuprofen 200 mg tablet 400 - 600 mg PO Q6H PRN Pain 03/11/23 03/11/23 Unknown History insulin glargine-yfgn 100 unit/mL See Rx Instructions .Route .COMPLEX 03/11/23 03/11/23 Unknown History subcutaneous solution insulin lispro 100 unit/mL See Rx Instructions .Route .COMPLEX 03/11/23 03/11/23 Unknown History subcutaneous solution (Humalog U-100 Insulin) [id number] See Rx Instructions .Route .COMPLEX 03/11/23 03/11/23 Unknown History 12,000-38,000-60,000 unit capsule,delayed rel (Creon) lisinopril 20 mg tablet 20 mg PO DAILY 03/11/23 03/11/23 Unknown History ondansetron 4 mg disintegrating 4 mg PO TID PRN Nausea And Vomiting 03/11/23 03/11/23 Unknown History tablet pantoprazole 40 mg tablet,delayed 40 mg PO DAILY 03/11/23 03/11/23 Unknown History release potassium chloride 10 mEq 10 meq PO DAILY 03/11/23 03/11/23 Unknown History tablet,extended release Allergies Allergy/AdvReac Type Severity Reaction Status Date / Time amoxicillin Allergy ADR-Abdominal Verified 10/27/22 22:26 Pain piperacillin [From Zosyn] Allergy ALGY-Hives Verified 10/27/22 22:26 tazobactam [From Zosyn] Allergy ALGY-Hives Verified 10/27/22 22:26 Current Medications Generic Name Dose Route Start Last Admin Trade Name Freq PRN Reason Stop Dose Admin Amlodipine Besylate 5 mg 03/14/23 09:00 03/14/23 08:32 Amlodipine 5 Mg Tablet PO 5 mg DAILY JAQUELINE Administration Vancomycin/PEG/NADA/Lysine/Water 1,500 mg in 300 mls @ 200 mls/hr 03/11/23 18:00 03/14/23 07:24 Vancocin IV Infused Q12H JAQUELINE Infusion Meropenem 1,000 mg/ Sodium 50 mls @ 100 mls/hr 03/13/23 10:30 03/14/23 12:00 Chloride IV Infused Q8H JAQUELINE Infusion Protocol Heparin Sodium/Sodium Chloride 25,000 unit in 500 mls @ 0 mls/hr 03/13/23 17:00 03/14/23 10:28 Heparin Drip IV 17.34 unit/kg/hr .Q0M JAQUELINE 45 mls/hr Titration Protocol Per Protocol Insulin Human Lispro 0 unit 03/13/23 12:00 03/14/23 12:04 Insulin Lispro 100 Unit/1 Ml SUBCUT Not Given WM&BEDTIME JAQUELINE Protocol Insulin Human Lispro 10 unit 03/13/23 17:00 03/14/23 12:11 Insulin Lispro 100 Unit/1 Ml SUBCUT 10 unit TIDAC JAQUELINE Administration Lanolin 1 applic 03/13/23 12:37 03/13/23 13:10 Lanolin Oint 7 Gm TOPICAL 1 applic PRN PRN Administration DRYNESS Metoclopramide HCl 10 mg 03/12/23 12:28 03/13/23 05:55 Metoclopramide 5 Mg/Ml Sdv 2 Ml IVP 10 mg Q6H PRN Administration NAUSEA AND VOMITING Morphine Sulfate 2 mg 03/13/23 11:07 03/14/23 15:11 Morphine 4 Mg/Ml Sdv 1 Ml IVP 2 mg Q4H PRN Administration MODERATE PAIN Non-Formulary Medication 1 cap 03/12/23 17:00 03/14/23 12:10 Lootxd-Cicohjni-Bsuxbqv [Creon] PO 1 cap WM&BEDTIME JAQUELINE Administration Nystatin 1 applic 03/12/23 18:00 03/14/23 08:39 Nystatin Powder 15 Gm Btl TOPICAL 1 applic BID JAQUELINE Administration Ondansetron HCl 8 mg 03/12/23 09:34 03/13/23 03:46 Ondansetron 2 Mg/Ml Sdv 2 Ml IVP 8 mg Q8H PRN Administration vomiting, or N/V if npo Oxycodone/Acetaminophen 1 tab 03/14/23 11:28 03/14/23 12:16 Oxycodone-Apap 5-325 Mg Tablet PO 1 tab Q6H PRN Administration PAIN Pantoprazole Sodium 40 mg 03/11/23 09:00 03/14/23 08:32 Pantoprazole 40 Mg Sdv IVP 40 mg DAILY JAQUELINE Administration Sodium Chloride 1 gm 03/14/23 15:00 03/14/23 15:11 Sodium Chloride 1 Gm Tablet PO 1 gm TID JAQUELINE Administration PFSH Acute PFSH: Medical History Chronic back pain Chronic pancreatitis Diabetes Familial hypertriglyceridemia Scoliosis Surgical History Hx of spinal surgery Family History Other Hyperlipidemia Social History Household members: spouse Marital status: Vitals/I&O/Wt Last Vital Signs Temp 98.5 F 03/14/23 14:00 Pulse 107 H 03/14/23 16:30 Resp 23 H 03/14/23 16:30 BP 150/87 03/14/23 16:30 Pulse Ox 100 03/14/23 16:30 O2 Del Method Nasal Cannula 03/14/23 16:00 O2 Flow Rate 4 03/14/23 16:00 03/14/23 03/14/23 03/14/23 06:59 14:59 22:59 Intake Total 1730.000 / 4410.890 1673.2 / 1673.2 Output Total 1650 / 7100 2325 / 2325 Balance 80.000 / -2689.110 -651.8 / -651.8 Weight last 48 hrs Weight 284 lb 14.4 oz Weight 286 lb Physical Exam Narrative: GENERAL: Patient is alert, awake and oriented x3. [] NECK: No jugular vein distension. [] HEENT: No cyanosis. No icterus. No pallor. [] HEART: Regular S1 and S2. Has grade 2/6 systolic murmur LUNGS: Clear to auscultate bilaterally. [] CENTRAL NERVOUS SYSTEM: Grossly nonfocal. [] EXTREMITIES: Lower extremities with 1+ edema bilaterally. Urinary Catheter Management: Skinner: Cath Placed During This Visit: yes Reason for Continuing Indwelling Catheter: Accurate Measurement of Urinary Output in Critically Ill Patients Urinary Catheter Date of Insertion: 03/11/23 Urinary Catheter Time of Insertion: 09:05 Data 03/15/23 04:32 03/15/23 04:32 Micro: Microbiology 03/13/23 12:10 Gram Stain - Final Sputum - Expectorated Sputum Sputum Culture - Preliminary 03/13/23 11:05 Blood Culture - Preliminary Blood NEGATIVE TO DATE 03/13/23 11:16 Blood Culture - Preliminary Blood NEGATIVE TO DATE 03/11/23 01:50 Blood Culture - Final Blood Methicillin Resis Staph Aureus 03/11/23 01:50 Blood Culture - Final Blood Methicillin Resis Staph Aureus A&P Assessment and plan (1) Septic embolism: (2) MRSA bacteremia: (3) Severe sepsis: Plan Patient has MRSA bacteremia. Transthoracic echocardiogram had limited visualization of tricuspid valve however there is concern for possible vegetation. We will proceed with transesophageal echocardiogram to confirm findings. N.p.o. past midnight. Risks and benefits of the procedure were discussed with the patient and family. They understand them and want to proceed. N.p.o. past midnight. Thank you for involving us with care of this patient. We will continue to follow. Please call with questions. Consult Attestations Medical Necessity Statement: Care expected to cross 2 midnights. Coding Level of Care Code Acute Code for [facility] Diagnoses Septic embolism I76 MRSA bacteremia R78.81; B95.62 Severe sepsis A41.9; R65.20
[2023-03-14 17:48] LABS: Partial Thromboplastin Time 45.3 SECONDS (23.9-36.7)
[2023-03-14] MEDS: insulin glargine 100 units/1 mL 45 UNIT SUBCUT (18:13)
[2023-03-14] MEDS: ferrous gluconate 324 mg Tablet PO (18:13)
[2023-03-14] MEDS: heparin drip 25,000 UNIT/500 ML PREMIX 46 UNIT IV (19:54)
[2023-03-14] MEDS: atorvastatin 40 mg Tablet PO (20:13)
[2023-03-14 23:14] LABS: Glucose Point of Care 183 mg/dL (70-110)
[2023-03-14 23:32] LABS: Partial Thromboplastin Time 49.6 SECONDS (23.9-36.7)
[2023-03-15] VITALS (53 sets, daily range): BP systolic 105–182; BP diastolic 59–133; PULSE 79–144; RESP 12–35; TEMP 36.8–37.1; O2SAT 83–98
[2023-03-15] MEDS: oxyCODONE-APAP 5-325 mg Tablet 1 TAB PO ×3 (00:34→17:59)
[2023-03-15] MEDS: meropenem 1,000 MG in sodium chloride 0.9% (plus) 50 ML 100 MG IV ×3 (03:52→18:00)
[2023-03-15 04:52] LABS: Basophils # 0.1 10^3/uL (0.0-0.1); Basophils % 0.3 %; Eosinophils # 0.1 10^3/uL (0.0-0.8); Eosinophils % 0.7 %; Hematocrit 22.8 % (36-47); Lymphocytes % 13.3 %; Mean Corpuscular HGB Conc 32.9 g/dL (30-55); Mean Corpuscular Hemoglobin 29.3 pg (27-33); Mean Corpuscular Volume 89.1 fl (85-98); Mean Platelet Volume 9.4 fL (7.4-10.4); Monocytes # 1.1 10^3/uL (0.2-0.9); Monocytes % 7.3 %; Neutrophils # 10.43 10^3/uL (1.8-7.7); Neutrophils % 69.5 %; Nucleated Red Blood Cells % 0 %; Platelet Count 371 10^3/cmm (157-399); Red Blood Count 2.56 10^6/uL (3.85-5.65); White Blood Count 15.03 10^3/uL (3.29-11.43)
[2023-03-15 05:04] LABS: Partial Thromboplastin Time 56.4 SECONDS (23.9-36.7)
[2023-03-15] MEDS: morphine 4 mg/mL SDV 1 mL 2 MG IVP ×3 (05:11→20:17)
[2023-03-15] MEDS: vancomycin 1,500 MG/300 ML PIGGYBACK 200 MG IV ×2 (05:11→18:00)
[2023-03-15 05:17] LABS: Magnesium 2.1 mg/dL (1.7-2.3); Phosphorus 1.9 mg/dL (2.5-4.5)
[2023-03-15 05:18] LABS: Slide Review Slide Review Perform
[2023-03-15 05:19] LABS: Alanine Aminotransferase 34 U/L (0-33); Albumin Level 2.6 g/dL (3.5-5.2); Alkaline Phosphatase 149 U/L (35-105); Anion Gap 15.9 (5-19); Aspartate Amino Transferase 30 U/L (0-32); Blood Urea Nitrogen 9 mg/dL (6-20); Calcium 7.1 mg/dL (8.5-10.5); Carbon Dioxide 19 mmol/L (22-29); Chloride 104 mmol/L (98-107); Creatinine Clr Calc Pharmacy 134.7467; Globulin 2.6 g/dL (1.3-4.6); Glomerular Filtration Rate 80.7 mL/min (90-130); Glucose 110 mg/dL (65-115); Osmolality Calculated 279 mOsm/kg (285-295); Potassium 3.9 mmol/L (3.5-5.1); Sodium 135 mmol/L (136-145); Total Bilirubin 0.5 mg/dL (0.15-1.2); Total Protein 5.2 g/dL (6.6-8.7)
[2023-03-15 05:20] LABS: Procalcitonin 5.11 ng/mL (0-0.5)
[2023-03-15 05:31] LABS: Glucose Point of Care 205 mg/dL (70-110)
[2023-03-15 06:25] LABS: Glucose Point of Care 109 mg/dL (70-110)
[2023-03-15] MEDS: heparin drip 25,000 UNIT/500 ML PREMIX 49 UNIT IV (07:03)
[2023-03-15 07:29] LABS: Glucose Point of Care 108 mg/dL (70-110)
[2023-03-15] MEDS: pantoprazole 40 mg SDV IVP (07:47)
[2023-03-15] MEDS: sodium chloride 1 gm Tablet PO ×3 (07:48→21:31)
[2023-03-15] MEDS: amlodipine 5 mg Tablet PO (07:48)
[2023-03-15] MEDS: ferrous gluconate 324 mg Tablet PO ×2 (07:48→18:00)
[2023-03-15] MEDS: nystatin powder 15 gm Btl 1 APPLIC TOPICAL (07:48)
--- NOTE | 2023-03-15 10:23 | USCV_ITS ---
Carmen Michelle Age: 37 Gender: F : 1985 Exam Date: 03/15/2023 10:42 Ordering Phys: Edvin Martin M.D ([email or web address]) Technologist: Exam Location: [facility] [place] Indication: ? veg BP: / HR: Rhythm: Sinus Technical Quality: Good MEASUREMENTS (Male / Female) Normal Values Medications Complications None Proc. Components After anesthesia team administered sedation, we proceeded with advancing [place] probe and obtained images. FINDINGS Left Ventricle Left ventricle is normal in size. LV systolic function is normal. Right Ventricle Normal in size and function Right Atrium Normal in size Left Atrium Normal in size LA Appendage No left atrial appendage thrombus seen IA Septum Grossly normal Mitral Valve Structurally normal mitral valve. No vegetations seen. Aortic Valve Structurally normal aortic valve. No vegetations seen. Tricuspid Valve Structurally normal tricuspid valve. No vegetation seen. Pulmonic Valve Grossly normal. no visible vegetation Pericardium Normal Aorta Normal CONCLUSIONS LV systolic function is normal. No valvular vegetations noted. No left atrial appendage thrombus seen Edvin Martin MD (Electronically Signed) Final Date: 18 March 2023 11:21 S
--- NOTE | 2023-03-15 10:26 | P.ANESASSM_ITS ---
Pre-Anesthetic Assessment Height/Weight: Height 1.7 m Weight 130.635 kg Temp Pulse Resp BP Pulse Ox O2 Del Method O2 Flow Rate 99.5 F 103 H 17 159/80 91 Nasal Cannula 2 03/14/23 18:00 03/15/23 09:00 03/15/23 09:00 03/15/23 09:00 03/15/23 09:00 03/15/23 09:00 03/14/23 20:00 [place] Familial anesthetic complications: None Was Beta Qing taken within 24 hours: N/A Was Clonidine taken within 24 hours: N/A Last intake: > 8hrs Social No alcohol and No tobacco Exam alert, oriented x 3, clear to auscultation bilaterally and regular rate & rhythm Airway Mallampati: Class I Dentition: chipped and other ( missing) Pulmonary Shortness of Breath CV/HEM Hypertension GI Gastroesophageal Reflux Disease Metabolic Diabetes Mellitus and Morbid Obesity sepsis w/ suspected IE Anesthetic Plan ASA status: 4 Anesthesia: MAC Risk of > 500 ml blood loss (7ml/kg in children): No Medications/Allergies Home Medications Medication Instructions Recorded Confirmed Last Taken Type Delta-8 Thc Gummies 8 mg PO DAILY PRN 03/11/23 03/11/23 Unknown History pancreatitis/back pain amlodipine 5 mg tablet 5 mg PO DAILY 03/11/23 03/11/23 Unknown History aspirin 325 mg tablet 325 - 650 mg PO Q6H PRN Pain 03/11/23 03/11/23 Unknown History dicyclomine 20 mg tablet 20 mg PO Q6H PRN Abdominal Pain 03/11/23 03/11/23 Unknown History ibuprofen 200 mg tablet 400 - 600 mg PO Q6H PRN Pain 03/11/23 03/11/23 Unknown History insulin glargine-yfgn 100 unit/mL See Rx Instructions .Route .COMPLEX 03/11/23 03/11/23 Unknown History subcutaneous solution insulin lispro 100 unit/mL See Rx Instructions .Route .COMPLEX 03/11/23 03/11/23 Unknown History subcutaneous solution (Humalog U-100 Insulin) [id number] See Rx Instructions .Route .COMPLEX 03/11/23 03/11/23 Unknown History 12,000-38,000-60,000 unit capsule,delayed rel (Creon) lisinopril 20 mg tablet 20 mg PO DAILY 03/11/23 03/11/23 Unknown History ondansetron 4 mg disintegrating 4 mg PO TID PRN Nausea And Vomiting 03/11/23 03/11/23 Unknown History tablet pantoprazole 40 mg tablet,delayed 40 mg PO DAILY 03/11/23 03/11/23 Unknown History release potassium chloride 10 mEq 10 meq PO DAILY 03/11/23 03/11/23 Unknown History tablet,extended release Allergies Allergy/AdvReac Type Severity Reaction Status Date / Time amoxicillin Allergy ADR-Abdominal Verified 10/27/22 22:26 Pain piperacillin [From Zosyn] Allergy ALGY-Hives Verified 10/27/22 22:26 tazobactam [From Zosyn] Allergy ALGY-Hives Verified 10/27/22 22:26 Current Medications Generic Name Dose Route Start Last Admin Trade Name Freq PRN Reason Stop Dose Admin Amlodipine Besylate 5 mg 03/14/23 09:00 03/15/23 07:48 Amlodipine 5 Mg Tablet PO 5 mg DAILY JAQUELINE Administration Atorvastatin Calcium 40 mg 03/14/23 21:00 03/14/23 20:13 Atorvastatin 40 Mg Tablet PO 40 mg BEDTIME JAQUELINE Administration Ferrous Gluconate 324 mg 03/14/23 18:00 03/15/23 07:48 Ferrous Gluconate 324 Mg Tablet PO 324 mg BIDWM JAQUELINE Administration Vancomycin/PEG/NADA/Lysine/Water 1,500 mg in 300 mls @ 200 mls/hr 03/11/23 18:00 03/15/23 07:19 Vancocin IV Infused Q12H [facility] Infusion Meropenem 1,000 mg/ Sodium 50 mls @ 100 mls/hr 03/13/23 10:30 03/15/23 07:19 Chloride IV Infused Q8H [facility] Infusion Protocol Heparin Sodium/Sodium Chloride 25,000 unit in 500 mls @ 0 mls/hr 03/13/23 17:00 03/15/23 07:03 Heparin Drip IV 18.89 unit/kg/hr .Q0M JAQUELINE 49 mls/hr Administration Protocol Per Protocol Insulin Glargine 45 unit 03/14/23 18:00 03/15/23 10:15 Insulin Glargine 100 Units/1 Ml SUBCUT Not Given BID [facility] Insulin Human Lispro 0 unit 03/13/23 12:00 03/15/23 07:29 Insulin Lispro 100 Unit/1 Ml SUBCUT Not Given WM&BEDTIME [facility] Protocol Insulin Human Lispro 10 unit 03/13/23 17:00 03/15/23 06:48 Insulin Lispro 100 Unit/1 Ml SUBCUT Not Given TIDAC JAQUELINE Lanolin 1 applic 03/13/23 12:37 03/13/23 13:10 Lanolin Oint 7 Gm TOPICAL 1 applic PRN PRN Administration DRYNESS Metoclopramide HCl 10 mg 03/12/23 12:28 03/13/23 05:55 Metoclopramide 5 Mg/Ml Sdv 2 Ml IVP 10 mg Q6H PRN Administration NAUSEA AND VOMITING Morphine Sulfate 2 mg 03/13/23 11:07 03/15/23 05:11 Morphine 4 Mg/Ml Sdv 1 Ml IVP 2 mg Q4H PRN Administration MODERATE PAIN Non-Formulary Medication 1 cap 03/12/23 17:00 03/15/23 08:22 Pneggz-Vrvzargk-Yfdipzn [Creon] PO Not Given WM&BEDTIME JAQUELINE Nystatin 1 applic 03/12/23 18:00 03/15/23 07:48 Nystatin Powder 15 Gm Btl TOPICAL 1 applic BID JAQUELINE Administration Ondansetron HCl 8 mg 03/12/23 09:34 03/13/23 03:46 Ondansetron 2 Mg/Ml Sdv 2 Ml IVP 8 mg Q8H PRN Administration vomiting, or N/V if npo Oxycodone/Acetaminophen 1 tab 03/14/23 11:28 03/15/23 07:47 Oxycodone-Apap 5-325 Mg Tablet PO 1 tab Q6H PRN Administration PAIN Pantoprazole Sodium 40 mg 03/11/23 09:00 03/15/23 07:47 Pantoprazole 40 Mg Sdv IVP 40 mg DAILY JAQUELINE Administration Sodium Chloride 1 gm 03/14/23 15:00 03/15/23 07:48 Sodium Chloride 1 Gm Tablet PO 1 gm TID JAQUELINE Administration PFSH Anesthesia Medical History Chronic back pain Chronic pancreatitis Diabetes Familial hypertriglyceridemia Scoliosis Surgical History Hx of spinal surgery Family History Other Hyperlipidemia Social History Household members: spouse Marital status: Data Anesthesia 03/15/23 04:32 03/15/23 04:32 Short CBC 03/13/23 03/14/23 03/14/23 Range/Units 11:05 05:35 09:56 WBC 9.22 Cancelled 12.12 H (3.29-11.43) 10^3/uL Hgb 7.90 L Cancelled 7.70 L (11.27-16.99) g/dL Hct 24.1 L Cancelled 23.7 L (36-47) % MCV 90.3 Cancelled 89.4 (85-98) fl Plt Count 159 Cancelled 206 (157-399) 10^3/cmm Neut % (Auto) 82.3 Cancelled 77.6 % Neut # (Auto) 7.58 Cancelled 9.40 H (1.8-7.7) 10^3/uL 03/15/23 Range/Units 04:32 WBC 15.03 H (3.29-11.43) 10^3/uL Hgb 7.50 L (11.27-16.99) g/dL Hct 22.8 L (36-47) % MCV 89.1 (85-98) fl Plt Count 371 D (157-399) 10^3/cmm Neut % (Auto) 69.5 % Neut # (Auto) 10.43 H (1.8-7.7) 10^3/uL BMP 03/14/23 03/14/23 03/15/23 05:35 07:59 04:32 Sodium Cancelled 126 L 135 L Potassium Cancelled 3.3 L 3.9 Chloride Cancelled 97 L 104 Carbon Dioxide Cancelled 17 L 19 L BUN Cancelled 11 9 Creatinine Cancelled 0.9 0.8 Glucose Cancelled 175 H 110 Calcium Cancelled 7.0 L 7.1 L Liver Function 03/14/23 03/14/23 03/15/23 Range/Units 05:35 07:59 04:32 Total Bilirubin Cancelled 0.6 0.5 AST Cancelled 27 30 ALT Cancelled 28 34 H Alkaline Phosphatase Cancelled 106 H 149 H Albumin Cancelled 2.4 L 2.6 L Coags 03/13/23 03/13/23 03/14/23 16:13 23:30 05:30 PT Cancelled INR Cancelled APTT 42.4 H Cancelled Fibrinogen Cancelled Fibrin Degrad Products D-Dimer 11.91 H Cancelled 03/14/23 03/14/23 03/14/23 05:30 05:47 10:02 PT 16.50 H INR 1.29 H APTT Cancelled 53.9 H Fibrinogen 868 H Fibrin Degrad Products Cancelled D-Dimer 8.24 H 03/14/23 03/14/23 03/15/23 17:21 23:05 04:32 PT INR APTT 45.3 H 49.6 H 56.4 H Fibrinogen Fibrin Degrad Products D-Dimer ABG 03/11/23 00:40 Specimen Type Not specified Sample Site Brachial, left Microbiology 03/14/23 21:13 Bacterial Antigens - Final Urine Kidney 03/13/23 12:10 Gram Stain - Final Sputum - Expectorated Sputum Sputum Culture - Preliminary 03/13/23 11:05 Blood Culture - Preliminary Blood NEGATIVE TO DATE 03/13/23 11:16 Blood Culture - Preliminary Blood NEGATIVE TO DATE Cardiac Studies: Echocardiogram 03/14/23
[2023-03-15 10:33] LABS: Partial Thromboplastin Time 40.5 SECONDS (23.9-36.7)
--- NOTE | 2023-03-15 10:34 | W.PM.OPSUD ---
Surgery/Procedure H&P Update DATE OF PROCEDURE: March 15, 2023 DATE H&P PERFORMED: 03/14/23 H&P UPDATE INFORMATION: I have reviewed H&P completed within last 30 days, I have examined patient prior to procedure and No changes to prior documentation PREOP DIAGNOSIS: MRSA bacteremia/rule out endocarditis PRIMARY INDICATION FOR PROCEDURE: MRSA bacteremia/ rule out endocarditis PLANNED PROCEDURE: Transesophageal echocardiogram Anesthesia team adminitering sedation
--- NOTE | 2023-03-15 10:59 | PM.PN ---
Subjective Subjective: Patient had [place] today. No vegetations visualized Vitals/I&O/Wt Last Vital Signs Temp 99.5 F 03/14/23 18:00 Pulse 103 H 03/15/23 09:00 Resp 17 03/15/23 09:00 BP 159/80 03/15/23 09:00 Pulse Ox 91 03/15/23 09:00 O2 Del Method Nasal Cannula 03/15/23 09:00 O2 Flow Rate 2 03/14/23 20:00 03/14/23 03/15/23 03/15/23 22:59 06:59 14:59 Intake Total 1276.8 / 2950.0 790.000 / 3740.000 350 / 350 Output Total 1600 / 3925 3200 / 7125 1200 / 1200 Balance -323.2 / -975.0 -2410.000 / -3385.000 -850 / -850 Weight last 48 hrs Weight 288 lb Weight 284 lb 14.4 oz Physical Exam Narrative: GENERAL: Patient is alert, awake and oriented x3. [] NECK: No jugular vein distension. [] HEENT: No cyanosis. No icterus. No pallor. [] HEART: Regular S1 and S2. Has grade 2/6 systolic murmur LUNGS: Clear to auscultate bilaterally. [] CENTRAL NERVOUS SYSTEM: Grossly nonfocal. [] EXTREMITIES: Lower extremities with 1+ edema bilaterally. Urinary Catheter Management: Skinner: Cath Placed During This Visit: yes Reason for Continuing Indwelling Catheter: Accurate Measurement of Urinary Output in Critically Ill Patients Urinary Catheter Date of Insertion: 03/11/23 Urinary Catheter Time of Insertion: 09:05 Data 03/16/23 04:30 03/16/23 04:30 Micro: Microbiology 03/13/23 12:10 Gram Stain - Final Sputum - Expectorated Sputum Sputum Culture - Preliminary Coag positive Staphylococcus 03/14/23 21:13 Bacterial Antigens - Final Urine Kidney 03/13/23 11:05 Blood Culture - Preliminary Blood NEGATIVE TO DATE 03/13/23 11:16 Blood Culture - Preliminary Blood NEGATIVE TO DATE A&P Assessment and plan (1) Septic embolism: (2) MRSA bacteremia: (3) Severe sepsis: Plan No vegetations observed. Patient is stable. Antibiotic therapy per ID Thank you for involving us with care of this patient. Please call with questions. Attestations Medical Necessity Statement*: Care expected to cross 2 midnights. Coding Level of Care Code Acute Code for [facility] Diagnoses Septic embolism I76 MRSA bacteremia R78.81; B95.62 Severe sepsis A41.9; R65.20
[2023-03-15 11:57] LABS: Glucose Point of Care 118 mg/dL (70-110)
[2023-03-15] MEDS: haloperidol inj 5 mg/mL INJ 1 mL IVP (14:28)
--- NOTE | 2023-03-15 15:14 | P.PN_ITS ---
Subjective Subjective: No acute events overnight. Seen post LONDON. Patient seen with at bedside. Patient seems to be anxious after the procedure. She is anxious for the MRI. Denies any nausea, vomiting, headache. Down to 2 L oxygen supplementation. Urine output of around 7500 cc in last 24 hours. Blood work shows a CBC with persistent leukocytosis of 15,000, hemoglobin stable at 7.5, CMP showing improvement in sodium to 135, improvement in bicarb to 19, stable creatinine, mild hypophosphatemia at 1.9, procalcitonin improving to 5.11 Vitals/I&O/Wt Last Vital Signs Temp 99.5 F 03/14/23 18:00 Pulse 115 H 03/15/23 13:52 Resp 15 03/15/23 13:52 BP 159/101 03/15/23 13:52 Pulse Ox 92 03/15/23 13:00 O2 Del Method Room Air 03/15/23 13:00 O2 Flow Rate 2 03/15/23 11:20 03/15/23 03/15/23 03/15/23 06:59 14:59 22:59 Intake Total 790.000 / 3740.000 1019.7 / 1019.7 Output Total 3200 / 7125 2700 / 2700 Balance -2410.000 / -3385.000 -1680.3 / -1680.3 Weight last 48 hrs Weight 130.635 kg Weight 129.228 kg Physical Exam Narrative: General: No acute distress, AO x3, NC oxygen supplementation, sick appearing, obese HEENT: PERRLA, pupils bilaterally equal and reactive Chest: Diffuse rhonchi all over lung, normal vascular breath sounds bilaterally over lower lung chatman, coarse crackles, right more than left CVS: S1-S2 regular, no murmurs, tachycardia, no gallops, no rubs Abdomen: Soft, nontender, no organomegaly, bowel sounds present, morbidly obese Neuro: No focal deficits, no facial deformity, AO x3, power 5/5 in all limbs Urinary Catheter Management: Skinner: Cath Placed During This Visit: yes Reason for Continuing Indwelling Catheter: Accurate Measurement of Urinary Output in Critically Ill Patients Urinary Catheter Date of Insertion: 03/11/23 Urinary Catheter Time of Insertion: 09:05 Data 03/15/23 04:32 03/15/23 04:32 Micro: Microbiology 03/13/23 12:10 Gram Stain - Final Sputum - Expectorated Sputum Sputum Culture - Preliminary Coag positive Staphylococcus 03/14/23 21:13 Bacterial Antigens - Final Urine Kidney 03/13/23 11:05 Blood Culture - Preliminary Blood NEGATIVE TO DATE 03/13/23 11:16 Blood Culture - Preliminary Blood NEGATIVE TO DATE A&P Assessment and plan (1) Severe sepsis: Ruled in with tachycardia, bacteremia, started organ dysfunction with acute kidney injury, hypoxia, resolving altered mental status. Keep mean artery pressure 65, oxygen saturation over 90%. Follow-up blood cultures. Repeat blood cultures today. Blood culture from 03/10 positive for MRSA. (2) MRSA bacteremia: Blood cultures from 03/10 positive. Repeat blood cultures sent on 03/13. Unclear source. Patient gives history of Staphylococcus bacteremia in past from osteomyelitis of bilateral great toes. Does give history of hardware in spine for scoliosis. No recent skin breakdown, animal bite. Possible MRSA pneumonia with high concerns for septic emboli to the lungs. Appreciate CT lumbar and thoracic spine results which was negative for discitis or osteomyelitis. Echocardiogram pending. Lungs Given concerns for septic emboli to there is a high concern for possible infective endocarditis. We will consult cardiology for LONDON. Patient is agreeable. Appreciate ID recommendations. (3) Hypoxia: Most likely in setting of MRSA pneumonia along with septic emboli. PE ruled out. Aggressive pulmonary toilet with incentive spirometry and flutter valve. Pulmicort twice daily, ipratropium, Xopenex every 6 hourly. Keep oxygen saturation over 90%. Out of bed to chair. Sputum culture pending. Follow-up results. Continue with vancomycin along with IV meropenem. Dose antibiotics renally. (4) Bilateral interstitial pneumonia: With concerns for septic emboli. (5) ADRY (acute kidney injury): Baseline creatinine around 1. Resolved. Continues to have metabolic acidosis. Medical reconciliation done for nephrotoxic drugs. Strict input output charting. Continue to monitor fluid status. Hold off on IV fluids. Patient around 6 L positive now. Good urine output last 24 hours. Possibly repeat oral Lasix later in the day depending on urine output. Monitor Vanco trough levels. (6) Hyponatremia: In combination with pseudohyponatremia with hyperglycemia. Start oral salt tablets 1 g 3 times daily. Monitor BMP daily for now. (7) Diabetes: DKA has resolved. Anion gap closed. As per patient she used to be on insulin pump which so far has not been functioning well so patient has stopped using currently. Currently she was taking 45 units of Lantus along with 40 to 50 units of Humalog with each meals. A1c more than 10. Continue with insulin sliding scale at high-dose protocol before meals and at bedtime, Humalog 10 units premeals. Increase Lantus to 45 units twice daily. Hypoglycemia protocol. Continue with clear liquid carb consistent diet for now. (8) Acute encephalopathy: Resolved. (9) DKA (diabetic ketoacidosis): Resolved. Anion gap closed. (10) Hypokalemia: Replace with 80 mg of oral potassium. Monitor daily (11) Hypomagnesemia: Received placement. Follow-up magnesium level. Monitoring daily (12) Familial hypertriglyceridemia: Chronic. As per patient history of familial hypertriglyceridemia. Failed multiple outpatient medications. States baseline triglyceride levels are usually over 10,000. We will request outpatient documents. Triglyceride level more than thousand. Stable. Given chronic triglyceride level being high for now we will stop the insulin drip even if triglyceride levels are more than 500. Continue to monitor t riglyceride levels daily. Plan Hypertension: Goal blood pressure less than 140/90 mmHg. Blood pressure is elevated to more than 170. Continue with amlodipine 5 mg oral daily. Continues to have tachycardia. For now we will hold off on rate limiting medications. Filling defect in left common iliac and internal iliac: High suspicion of thrombus. PE and lower limb DVT is ruled out. Cannot rule out external compression in setting of possible May-Thurner syndrome. Patient could not tolerate MRI again. With concerns for septic emboli to lung there is a higher risk of pulmonary infarct or hemorrhage. DVT and PE has been ruled out. For now we will stop the heparin drip and continue to monitor. Familial hyperlipidemia, Chronic pancreatitis, Chronic back pain Scoliosis: Postoperative. Full code Carb consistent diet Heparin drip will suffice as DVT prophylaxis. Protonix for PUD prophylaxis. Plan for the day: Continue with IV vancomycin. Patient having robust urine output with improvement in renal functions. We will plan to do bank trough level before next dose to see if vancomycin does have to be readjusted keeping trough levels around 15. Continue to monitor urine output. GREGORIO Skinner. Monitor CMP daily. Hyponatremia improving. Continue with oral salt tablets. Patient having worsening leukocytosis though patient remains hemodynamically stable and afebrile. Repeat blood cultures so far negative. Continue with IV vancomycin. Continue with meropenem for now for overall 7 days for possible aspiration pneumonia. Appreciate ID recommendations. Continue with Lantus 45 units twice daily, decrease Premeal Humalog to 5 3 times daily. Continue with 3 meals NovoLog before meals and at bedtime. Replace phosphorus. Continue to monitor CMP, magnesium and phosphorus daily. DC heparin as above. Start on heparin 5000 every 8 hourly 4 hours after stopping heparin drip. Blood pressure mildly elevated with tachycardia. Start on metoprolol 25 mg twice daily, lisinopril 5 mg daily. Stop amlodipine. Lisinopril will be better antihypertensive for patient given significant diabetes. Discharge plan: Plan to discharge patient once blood cultures are negative on IV vancomycin for 6 to 8 weeks depending on result of LONDON. Case management alerted. Patient would need PICC line placed once blood cultures confirmed negative. Care plan discussed in detail with patient and patient's at bedside. All the questions were answered. Attestations Medical Necessity Statement*: Requires further hospitalization for MRSA bacteremia While endocarditis is ruled out, requiring LONDON, uncontrolled diabetes mellitus Diagnoses Severe sepsis A41.9; R65.20 MRSA bacteremia R78.81; B95.62 Hypoxia R09.02 Bilateral interstitial pneumonia J84.9 ADRY (acute kidney injury) N17.9 Hyponatremia E87.1 Diabetes E11.9 Acute encephalopathy G93.40 DKA (diabetic ketoacidosis) E11.10 Hypokalemia E87.6 Hypomagnesemia E83.42 Familial hypertriglyceridemia E78.1
[2023-03-15 17:15] LABS: Vancomycin Trough 14.2 ug/mL (10-15)
[2023-03-15 17:56] LABS: Glucose Point of Care 172 mg/dL (70-110)
[2023-03-15] MEDS: insulin lispro 100 unit/1 mL SUBCUT ×2 (18:00→21:41)
[2023-03-15] MEDS: insulin glargine 100 units/1 mL 45 UNIT SUBCUT (18:01)
[2023-03-15 19:42] LABS: Glucose Point of Care 225 mg/dL (70-110)
[2023-03-15] MEDS: heparin 5,000 unit/mL INJ 1 mL 5000 UNIT SUBCUT (20:18)
[2023-03-15] MEDS: atorvastatin 40 mg Tablet PO (21:31)
[2023-03-15] MEDS: metoprolol tartrate 25 mg Tablet PO (21:31)
[2023-03-15 21:40] LABS: Glucose Point of Care 176 mg/dL (70-110)
--- NOTE | 2023-03-15 22:17 | P.PN_ITS ---
Subjective Subjective: Infectious disease progress note. Follow-up blood culture remains negative to date. LONDON without any evidence of vegetations/endocarditis. Medications: Reviewed: Yes Vitals/I&O/Wt Last Vital Signs Temp 98.3 F 03/15/23 20:00 Pulse 86 03/15/23 21:59 Resp 19 H 03/15/23 20:30 BP 111/75 03/15/23 20:30 Pulse Ox 93 03/15/23 20:30 O2 Del Method Nasal Cannula 03/15/23 20:11 O2 Flow Rate 2 03/15/23 20:11 03/15/23 03/15/23 03/15/23 06:59 14:59 22:59 Intake Total 790.000 / 3740.000 1019.7 / 1019.7 904.6 / 1924.3 Output Total 3200 / 7125 2700 / 2700 1450 / 4150 Balance -2410.000 / -3385.000 -1680.3 / -1680.3 -545.4 / -2225.7 Weight last 48 hrs Weight 130.635 kg Weight 129.228 kg Physical Exam Narrative: General: No acute distress, AO x3 HEENT: PERRLA, pupils bilaterally equal and reactive, pallors not present sitting up in bed, nasal cannula in place. Chest: Normal vesicular breath sounds, no added sounds, equal good air entry bilaterally CVS: S1-S2 regular, no murmurs, no tachycardia, no gallops, no rubs Abdomen: Soft, nontender, no organomegaly, bowel sounds present Neuro: No focal deficits, no facial deformity, AO x3, power 5/5 in all limbs Extremities: Amputated bilateral great toes. No open sores or ulcers over the foot currently. No other skin lesions. Urinary Catheter Management: Skinner: Cath Placed During This Visit: yes Reason for Continuing Indwelling Catheter: Accurate Measurement of Urinary Output in Critically Ill Patients Urinary Catheter Date of Insertion: 03/11/23 Urinary Catheter Time of Insertion: 09:05 Data 03/17/23 04:25 03/17/23 04:25 Micro: Microbiology 03/13/23 12:10 Gram Stain - Final Sputum - Expectorated Sputum Sputum Culture - Preliminary Coag positive Staphylococcus 03/14/23 21:13 Bacterial Antigens - Final Urine Kidney A&P Assessment and plan (1) MRSA (methicillin resistant Staphylococcus aureus) septicemia: (2) Septic embolism: Plan 37-year-old lady with multiple comorbidities, history of recurrent MRSA skin infections and osteomyelitis, most recently May 26, 2022, presenting currently with MRSA septicemia with septic embolization of the lungs. Blood culture positive from 03/11/2023, follow-up blood cultures from March 13, 2023 negative to date. Continue vancomycin with a goal trough of 15-20 for treatment of MRSA se pticemia. CT of the chest with bilateral infiltrates with some developing cavitation, highly suspicious for septic embolization. Sputum culture now also with up MRSA. High clinical suspicion for endocarditis given evidence of septic embolization , however LONDON performed today without any gross vegetations. Negative respiratory viral panel Can continue meropenem empirically for a short course of 7 to 10 days for possibility of potential aspiration. Favor septic emboli as the likely cause of lung infiltrates at this time. Unclear source of MRSA Septicemia. Currently patient does not appear to have any open sores or lesions. She has a lot of hardware in her back, potentially may have been bacteremic at some point during her course with MRSA osteomyelitis earlier this year, concern for potential hardware involvement of the back. MRI of the spine was recommended however patient was unable to complete the study is unable to lie still in the machine and did not cooperate with instructions. Instead after discussion with primary team recommended CT of the thoracolumbar spine with contrast which was completed on March 13, 2023. No evidence of discitis or osteomyelitis was noted. There was no evidence of paravertebral abscess. There was a filling defect in the left common iliac and internal iliac vein suspicious for thrombus. Venous duplex of the lower extremity was negative for any thrombus. CT of the chest abdomen and pelvis did not show any abdominal events. CT chest with pneumonia as noted above. At this time patient appears to be clearing blood cultures from March 1312/2022. We will recommend a minimum 6-week course of IV antibiotics with vancomycin with target trough of 15-20. K [address] PICC line once cultures negative for 72 hours from March 1312/2022. Recommend to remove right IJ CVC and Skinner catheter. Attestations Medical Necessity Statement*: For admitting Coding Level of Care Code Acute Code for [facility] Diagnoses MRSA (methicillin resistant Staphylococcus aureus) septicemia A41.02 Septic embolism I76
[2023-03-16] VITALS (45 sets, daily range): BP systolic 110–188; BP diastolic 67–130; PULSE 76–119; RESP 10–35; TEMP 36.9–37.7; O2SAT 90–99
[2023-03-16] MEDS: oxyCODONE-APAP 5-325 mg Tablet 1 TAB PO ×4 (00:03→20:50)
[2023-03-16] MEDS: morphine 4 mg/mL SDV 1 mL 2 MG IVP ×5 (02:40→23:35)
[2023-03-16] MEDS: meropenem 1,000 MG in sodium chloride 0.9% (plus) 50 ML 100 MG IV ×3 (02:45→17:41)
[2023-03-16] MEDS: heparin 5,000 unit/mL INJ 1 mL 5000 UNIT SUBCUT ×3 (03:36→20:50)
[2023-03-16 05:22] LABS: Mean Corpuscular HGB Conc 32.2 g/dL (30-55); Mean Corpuscular Hemoglobin 28.9 pg (27-33); Mean Corpuscular Volume 89.8 fl (85-98); Mean Platelet Volume 9.3 fL (7.4-10.4); Platelet Count 477 10^3/cmm (157-399); Red Blood Count 2.56 10^6/uL (3.85-5.65); Red Cell Distribution Width 14.3 % (12.1-15.1); White Blood Count 12.09 10^3/uL (3.29-11.43)
[2023-03-16 05:40] LABS: Alanine Aminotransferase 29 U/L (0-33); Albumin Level 2.5 g/dL (3.5-5.2); Alkaline Phosphatase 166 U/L (35-105); Anion Gap 12.5 (5-19); Aspartate Amino Transferase 19 U/L (0-32); Blood Urea Nitrogen 8 mg/dL (6-20); Calcium 7.6 mg/dL (8.5-10.5); Carbon Dioxide 21 mmol/L (22-29); Chloride 106 mmol/L (98-107); Globulin 3.3 g/dL (1.3-4.6); Glomerular Filtration Rate 94.2 mL/min (90-130); Glucose 157 mg/dL (65-115); Osmolality Calculated 284 mOsm/kg (285-295); Potassium 3.5 mmol/L (3.5-5.1); Sodium 136 mmol/L (136-145); Total Bilirubin 0.4 mg/dL (0.15-1.2); Total Protein 5.8 g/dL (6.6-8.7)
[2023-03-16 05:44] LABS: Phosphorus 2.2 mg/dL (2.5-4.5)
[2023-03-16 05:55] LABS: Absolute Segmented Neutrophil 9.3 10/cmm (1.6-7.1); Segmented Neutrophils 77 %; Slide Review Slide Review Perform; Total Cells Counted 100 (0-100)
[2023-03-16 05:56] LABS: Absolute Eosinophils 0.1 10^3/cmm (0.0-0.7); Eosinophils 1 %; Lymphocytes 16 %; Monocytes Absolute 0.2 10^3/cmm (0.1-0.6); Platelet Estimate Increased (Normal)
[2023-03-16] MEDS: vancomycin 1,500 MG/300 ML PIGGYBACK 200 MG IV ×2 (06:04→18:25)
[2023-03-16 06:20] LABS: Glucose Point of Care 149 mg/dL (70-110)
[2023-03-16 08:06] LABS: Glucose Point of Care 172 mg/dL (70-110)
[2023-03-16] MEDS: insulin glargine 100 units/1 mL 45 UNIT SUBCUT ×2 (08:14→17:46)
[2023-03-16] MEDS: pantoprazole 40 mg SDV IVP (08:15)
[2023-03-16] MEDS: ferrous gluconate 324 mg Tablet PO ×2 (08:15→17:32)
[2023-03-16] MEDS: sodium chloride 1 gm Tablet PO ×3 (08:15→20:50)
[2023-03-16] MEDS: metoprolol tartrate 25 mg Tablet PO (08:15)
[2023-03-16] MEDS: insulin lispro 100 unit/1 mL SUBCUT ×3 (08:15→21:37)
[2023-03-16] MEDS: lisinopril 5 mg Tablet PO (08:15)
[2023-03-16 11:29] LABS: Glucose Point of Care 130 mg/dL (70-110)
--- NOTE | 2023-03-16 12:44 | XR_ITS ---
WS: [id number] PORTABLE CHEST HISTORY: Post PICC insertion COMPARISON: 03/13/2023 Left-sided PICC line is present with tip at the caval atrial junction. There is an additional right-s ided central line terminating in a similar location. Lung volumes are decreased with bilateral hazy opacifications. No pleural effusion or pneumothorax. Cardiac size: Normal. Mediastinum/Aorta: Normal mediastinum. Prior Alarcon mata placement. Median sternotomy wires. IMPRESSION: 1. Satisfactory positioning of the LEFT PICC line. 2. Bilateral pulmonary opacifications and low lung volumes. Pneumonia versus edema.
[2023-03-16 13:09] LABS: Quantiferon Mitogen 0.81 IU/mL; Quantiferon Nil 0.02 IU/mL; Quantiferon TB Gold NEGATIVE (NEGATIVE)
--- NOTE | 2023-03-16 13:30 | PC.NURSE ---
Single lumen PICC placed to left basilic vein. Referred for PICC placement due to need for IV antibiotics greater than 14 days. Risks and benefits discussed with patient and and informed consent obtained. Pt requested PICC line in left arm due to right hand dominance. Left basilic vein assessed and noted at 4.5 mm, straight, and apparent best choice for placement. Using sterile technique and MST, left basilic vein accessed x 1 stick. Mid-arm circumference measured 10 cm from left AC 36 cm. Trimmed cath 48 cm with 0 cm external length noted. CXR shows tip in distal SVC, cavoatrial junction, in good position for use per radiologist. Line secured with stat-lock. Insertion site covered with Biopatch and TSM. Report given to bedside nurseMicheline.
[2023-03-16 14:14] LABS: Methicillin-Resist S.aureu PCR DETECTED (NOT DETECTED)
[2023-03-16] MEDS: morphine 4 mg/mL SDV 1 mL 1 MG IVP (14:40)
--- NOTE | 2023-03-16 15:45 | PC.NURSE ---
Transfer Note Patient transferred to C[facility] room 103 from ICU via wheelchair. Handoff report given to LAURA Chavez. Patient oriented to environment and equipment. Covering service notified. Orders reviewed and will continue to monitor. Family notified. All belongings transferred with patient and placed at bedside. Upon transfer patient is alert/oriented x4, on room air.
--- NOTE | 2023-03-16 16:41 | P.PN_ITS ---
Subjective Subjective: No acute events overnight. Patient has remained hemodynamically stable and afebrile. Today morning seen with at bedside. Patient awake and alert on room air. States she is feeling better. Continue complain of back pain. Document urine output of 6.7 L in last 24 hours. Blood was appreciated for improving leukocytosis, stable hemoglobin, mild thrombocytosis, CMP showing sodium level, stable creatinine, mild hypophosphatemia Vitals/I&O/Wt Last Vital Signs Temp 99.3 F 03/16/23 16:00 Pulse 104 H 03/16/23 16:00 Resp 21 H 03/16/23 16:00 BP 167/79 03/16/23 16:00 Pulse Ox 92 03/16/23 16:00 O2 Del Method Room Air 03/16/23 16:00 O2 Flow Rate 2 03/16/23 08:30 03/16/23 03/16/23 03/16/23 06:59 14:59 22:59 Intake Total 530 / 2754.3 3350 / 3350 Output Total 1500 / 6400 3000 / 3000 Balance -970 / -3645.7 350 / 350 Weight last 48 hrs Weight 124.738 kg Weight 130.635 kg Physical Exam Narrative: General: No acute distress, AO x3, NC oxygen supplementation, sick appearing, obese HEENT: PERRLA, pupils bilaterally equal and reactive Chest: Diffuse rhonchi all over lung, normal vascular breath sounds bilaterally over lower lung chatman, coarse crackles, right more than left CVS: S1-S2 regular, no murmurs, tachycardia, no gallops, no rubs Abdomen: Soft, nontender, no organomegaly, bowel sounds present, morbidly obese Neuro: No focal deficits, no facial deformity, AO x3, power 5/5 in all limbs Urinary Catheter Management: Skinner: Cath Placed During This Visit: yes Reason for Continuing Indwelling Catheter: Accurate Measurement of Urinary Output in Critically Ill Patients Urinary Catheter Date of Insertion: 03/11/23 Urinary Catheter Time of Insertion: 09:05 Data 03/16/23 04:30 03/16/23 04:30 Micro: Microbiology 03/13/23 12:10 Gram Stain - Final Sputum - Expectorated Sputum Sputum Culture - Final Methicillin Resis Staph Aureus A&P Assessment and plan (1) Severe sepsis: Ruled in with tachycardia, bacteremia, started organ dysfunction with acute ki dney injury, hypoxia, resolving altered mental status. Keep mean artery pressure 65, oxygen saturation over 90%. Follow-up blood cultures. Repeat blood cultures today. Blood culture from 03/10 positive for MRSA. (2) MRSA bacteremia: Blood cultures from 03/10 positive. Repeat blood cultures sent on 03/13. Unclear source. Patient gives history of Staphylococcus bacteremia in past from osteomyelitis of bilateral great toes. Does give history of hardware in spine for scoliosis. No recent skin breakdown, animal bite. Possible MRSA pneumonia with high concerns for septic emboli to the lungs. Appreciate CT lumbar and thoracic spine results which was negative for discitis or osteomyelitis. Echocardiogram pending. Lungs Given concerns for septic emboli to there is a high concern for possible infective endocarditis. We will consult cardiology for LONDON. Patient is agreeable. Appreciate ID recommendations. (3) Hypoxia: Most likely in setting of MRSA pneumonia along with septic emboli. PE ruled out. Aggressive pulmonary toilet with incentive spirometry and flutter valve. Pulmicort twice daily, ipratropium, Xopenex every 6 hourly. Keep oxygen saturation over 90%. Out of bed to chair. Sputum culture pending. Follow-up results. Continue with vancomycin along with IV meropenem. Dose antibiotics renally. (4) Bilateral interstitial pneumonia: With concerns for septic emboli. (5) ADRY (acute kidney injury): Baseline creatinine around 1. Resolved. Continues to have metabolic acidosis. Medical reconciliation done for nephrotoxic drugs. Strict input output charting. Continue to monitor fluid status. Hold off on IV fluids. Patient around 6 L positive now. Good urine output last 24 hours. Possibly repeat oral Lasix later in the day depending on urine output. Monitor Vanco trough levels. (6) Hyponatremia: In combination with pseudohyponatremia with hyperglycemia. Start oral salt tablets 1 g 3 times daily. Monitor BMP daily for now. (7) Diabetes: DKA has resolved. Anion gap closed. As per patient she used to be on insulin pump which so far has not been functioning well so patient has stopped using currently. Currently she was taking 45 units of Lantus along with 40 to 50 units of Humalog with each meals. A1c more than 10. Continue with insulin sliding scale at high-dose protocol before meals and at bedtime, Humalog 10 units premeals. Increase Lantus to 45 units twice daily. Hypoglycemia protocol. Continue with clear liquid carb consistent diet for now. (8) Acute encephalopathy: Resolved. (9) DKA (diabetic ketoacidosis): Resolved. Anion gap closed. (10) Hypokalemia: Replace with 80 mg of oral potassium. Monitor daily (11) Hypomagnesemia: Received placement. Follow-up magnesium level. Monitoring daily (12) Familial hypertriglyceridemia: Chronic. As per patient history of familial hypertriglyceridemia. Failed multiple outpatient medications. States baseline triglyceride levels are usually over 10,000. We will request outpatient documents. Triglyceride level more than thousand. Stable. Given chronic triglyceride level being high for now we will stop the insulin d rip even if triglyceride levels are more than 500. Continue to monitor triglyceride levels daily. Plan Hypertension: Goal blood pressure less than 140/90 mmHg. Blood pressure is elevated to more than 170. Continue with amlodipine 5 mg oral daily. Continues to have tachycardia. For now we will hold off on rate limiting medications. Filling defect in left common iliac and internal iliac: High suspicion of thrombus. PE and lower limb DVT is ruled out. Cannot rule out external compression in setting of possible May-Thurner syndrome. Patient could not tolerate MRI again. With concerns for septic emboli to lung there is a higher risk of pulmonary infarct or hemorrhage. DVT and PE has been ruled out. For now we will stop the heparin drip and continue to monitor. Familial hyperlipidemia, Chronic pancreatitis, Chronic back pain Scoliosis: Postoperative. Full code Carb consistent diet Heparin drip will suffice as DVT prophylaxis. Protonix for PUD prophylaxis. Plan for the day: Continue with vancomycin. Repeat vancomycin trough levels in AM. Repeat blood cultures from 03/13 so far negative. Remove central line. We will plan for PICC line placement. Overall IV vancomycin treatment for 6 weeks from 03/13. Strict input output charting to be continued. Monitor BMP including electrolytes daily. Replace phosphorus. Continue with oral salt tablets for now. Repeat sodium levels in AM. Blood sugars well controlled. Continue with 45 units of Lantus twice daily, 5 units of Humalog 3 times a day along with NovoLog as per low insulin sliding scale protocol before meals and at bedtime. Continue with heparin at prophylactic dose. Oxygen supplementation keeping saturation over 90%. Blood pressure is better controlled. Change metoprolol to Coreg 6.25 mg twice daily, continue with lisinopril 5 mg daily. We will plan to add medications further keeping goal less than 140/90 mmHg. Discharge plan: Patient will need 6 weeks of IV vancomycin. Most likely can be done at home with or without home health. Case management alerted. Care plan discussed in detail with patient and patient's at bedside. Michael rondon the questions were answered. Attestations Medical Necessity Statement*: Requires further hospitalization for management of MRSA bacteremia while outpatient antibiotics are sought. Diagnoses Severe sepsis A41.9; R65.20 MRSA bacteremia R78.81; B95.62 Hypoxia R09.02 Bilateral interstitial pneumonia J84.9 ADRY (acute kidney injury) N17.9 Hyponatremia E87.1 Diabetes E11.9 Acute encephalopathy G93.40 DKA (diabetic ketoacidosis) E11.10 Hypokalemia E87.6 Hypomagnesemia E83.42 Familial hypertriglyceridemia E78.1
[2023-03-16] MEDS: carvedilol 6.25 mg Tablet PO (17:32)
[2023-03-16] MEDS: atorvastatin 40 mg Tablet PO (20:50)
[2023-03-16 21:09] LABS: Glucose Point of Care 265 mg/dL (70-110)
--- NOTE | 2023-03-16 21:37 | PM.PN ---
Subjective Subjective: Infectious disease progress note Patient had central line removed. PICC line placed earlier this afternoon. Blood culture remains negative. Tmax 99.9 Fahrenheit tonight. Oxygen requirements improving, down to 2 L/min. Medications: Reviewed: Yes Vitals/I&O/Wt Last Vital Signs Temp 99.9 F H 03/16/23 21:05 Pulse 103 H 03/16/23 21:05 Resp 26 H 03/16/23 21:05 BP 148/84 03/16/23 21:05 Pulse Ox 94 03/16/23 21:05 O2 Del Method Room Air 03/16/23 21:05 O2 Flow Rate 2 03/16/23 08:30 03/16/23 03/16/23 03/16/23 06:59 14:59 22:59 Intake Total 530 / 2754.3 3350 / 3350 710 / 4060 Output Total 1500 / 6400 3000 / 3000 Balance -970 / -3645.7 350 / 350 710 / 1060 Weight last 48 hrs Weight 124.738 kg Weight 130.635 kg Physical Exam Narrative: General: No acute distress, AO x3 HEENT: PERRLA, pupils bilaterally equal and reactive, pallors not present Chest: Normal vesicular breath sounds, no added sounds, equal good air entry bilaterally CVS: S1-S2 regular, no murmurs, no tachycardia, no gallops, no rubs Abdomen: Soft, nontender, no organomegaly, bowel sounds present Neuro: No focal deficits, no facial deformity, AO x3, power 5/5 in all limbs Urinary Catheter Management: Ayala: Cath Placed During This Visit: yes Reason for Continuing Indwelling Catheter: Accurate Measurement of Urinary Output in Critically Ill Patients Urinary Catheter Date of Insertion: 03/11/23 Urinary Catheter Time of Insertion: 09:05 Data 03/18/23 05:15 03/18/23 05:15 Micro: Microbiology 03/13/23 12:10 Gram Stain - Final Sputum - Expectorated Sputum Sputum Culture - Final Methicillin Resis Staph Aureus A&P Assessment and plan (1) MRSA (methicillin resistant Staphylococcus aureus) septicemia: (2) Septic embolism: Plan 37-year-old lady with multiple comorbidities, history of recurrent MRSA skin infections and osteomyelitis, most recently May 26, 2022, presenting currently with MRSA septicemia with septic embolization of the lungs. Blood culture positive from 03/11/2023, follow-up blood cultures from March 13, 2023 negative to date. Continue vancomycin with a goal trough of 15-20 for treatment of MRSA septicemia. CT of the chest with bilateral infiltrates with some developing cavitation, highly suspicious for septic embolization. Sputum culture now also with MRSA. L[place] negative for any gross vegetations. Can continue meropenem empirically for a short course of 7 to 10 days for possibility of potential aspiration. Favor septic emboli as the likely cause of lung infiltrates at this time. Unclear source of MRSA Septicemia. Currently patient does not appear to have any open sores or lesions. She has a lot of hardware in her back, potentially may have been bacteremic at some point during her course with MRSA osteomyelitis earlier this year, concern for potential hardware involvement of the back. MRI of the spine was recommended however patient was unable to complete the study is unable to lie still in the machine and did not cooperate with instructions. Instead after discussion with primary team recommended CT of the thoracolumbar spine with contrast which was completed on March 13, 2023. No evidence of discitis or osteomyelitis was noted. There was no evidence of paravertebral abscess. There was a filling defect in the left common iliac and internal iliac vein suspicious for thrombus. Venous duplex of the lower extremity was negative for any thrombus. CT of the chest abdomen and pelvis did not show any abdominal events. CT chest with pneumonia as noted above. Noted to have tmax 99.9F with slight increase in leukocytosis,. Check RVP, urine cx (rectn ayala catherization), repeat blood cx and CT chest to assess for interim development of empyema Attestations Medical Necessity Statement*: per admitting Coding Level of Care Code Acute Code for [facility] Fwd Diagnoses MRSA (methicillin resistant Staphylococcus aureus) septicemia A41.02 Septic embolism I76
[2023-03-17] VITALS (17 sets, daily range): BP systolic 114–142; BP diastolic 57–77; PULSE 24–95; RESP 11–24; TEMP 36.9–37.2; O2SAT 92–98
[2023-03-17 01:24] LABS: Adenovirus Not Detected (NOT DETECT); Chlamydia Pneumoniae Not Detected (NOT DETECT); Coronavirus 229E,HKU1,NL63,OC4 Not Detected (NOT DETECT); Human Metapneumovirus Not Detected (NOT DETECT); Human Rhinovirus/Enterovirus Not Detected (NOT DETECT); Influenza A Not Detected (NOT DETECT); Influenza A H1 Not Detected (NOT DETECT); Influenza A H1-2009 Not Detected (NOT DETECT); Influenza A H3 Not Detected (NOT DETECT); Influenza B Not Detected (NOT DETECT); Mycoplasma Pneumoniae Not Detected (NOT DETECT); Parainfluenza Virus Type 1 Not Detected (NOT DETECT); Parainfluenza Virus Type 2 Not Detected (NOT DETECT); Parainfluenza Virus Type 3 Not Detected (NOT DETECT); Parainfluenza Virus Type 4 Not Detected (NOT DETECT); Respiratory Syncytial Virus A Not Detected (NOT DETECT); Respiratory Syncytial Virus B Not Detected (NOT DETECT); SARS-COV-2 Not Detected (NOT DETECT)
[2023-03-17 01:59] LABS: Glucose Point of Care 206 mg/dL (70-110)
[2023-03-17] MEDS: oxyCODONE-APAP 5-325 mg Tablet 1 TAB PO ×4 (02:05→23:24)
[2023-03-17] MEDS: meropenem 1,000 MG in sodium chloride 0.9% (plus) 50 ML 100 MG IV ×3 (02:06→17:28)
[2023-03-17] MEDS: heparin 5,000 unit/mL INJ 1 mL 5000 UNIT SUBCUT ×3 (04:11→21:28)
[2023-03-17] MEDS: morphine 4 mg/mL SDV 1 mL 2 MG IVP ×5 (04:11→21:39)
[2023-03-17 04:38] LABS: Basophils # 0.1 10^3/uL (0.0-0.1); Basophils % 0.5 %; Eosinophils # 0.2 10^3/uL (0.0-0.8); Eosinophils % 1.5 %; Hematocrit 22.9 % (36-47); Lymphocytes # 2.2 10^3/uL (0.8-4.8); Lymphocytes % 15.5 %; Mean Corpuscular HGB Conc 32.3 g/dL (30-55); Mean Corpuscular Hemoglobin 29.4 pg (27-33); Mean Corpuscular Volume 90.9 fl (85-98); Mean Platelet Volume 9.1 fL (7.4-10.4); Monocytes # 0.9 10^3/uL (0.2-0.9); Neutrophils # 9.37 10^3/uL (1.8-7.7); Neutrophils % 65.2 %; Nucleated Red Blood Cells % 0.1 %; Platelet Count 394 10^3/cmm (157-399); Red Blood Count 2.52 10^6/uL (3.85-5.65); Red Cell Distribution Width 14.6 % (12.1-15.1); White Blood Count 14.36 10^3/uL (3.29-11.43)
[2023-03-17 04:55] LABS: Magnesium 1.9 mg/dL (1.7-2.3); Phosphorus 2.9 mg/dL (2.5-4.5)
[2023-03-17 04:56] LABS: Slide Review Slide Review Perform
[2023-03-17 04:59] LABS: Alanine Aminotransferase 27 U/L (0-33); Albumin Level 2.4 g/dL (3.5-5.2); Alkaline Phosphatase 161 U/L (35-105); Anion Gap 14.4 (5-19); Aspartate Amino Transferase 22 U/L (0-32); Blood Urea Nitrogen 10 mg/dL (6-20); Calcium 7.6 mg/dL (8.5-10.5); Carbon Dioxide 20 mmol/L (22-29); Chloride 101 mmol/L (98-107); Globulin 3.5 g/dL (1.3-4.6); Glomerular Filtration Rate 80.7 mL/min (90-130); Glucose 189 mg/dL (65-115); Osmolality Calculated 278 mOsm/kg (285-295); Potassium 3.4 mmol/L (3.5-5.1); Sodium 132 mmol/L (136-145); Total Bilirubin 0.2 mg/dL (0.15-1.2); Total Protein 5.9 g/dL (6.6-8.7)
[2023-03-17] MEDS: vancomycin 1,500 MG/300 ML PIGGYBACK 150 MG IV (06:15)
[2023-03-17] MEDS: insulin lispro 100 unit/1 mL SUBCUT ×5 (06:16→21:27)
[2023-03-17 06:44] LABS: Glucose Point of Care 160 mg/dL (70-110)
[2023-03-17] MEDS: ferrous gluconate 324 mg Tablet PO ×2 (07:46→17:31)
[2023-03-17] MEDS: carvedilol 6.25 mg Tablet PO ×2 (08:10→17:31)
[2023-03-17] MEDS: insulin glargine 100 units/1 mL 45 UNIT SUBCUT ×2 (08:10→17:30)
[2023-03-17] MEDS: lisinopril 5 mg Tablet PO (08:10)
[2023-03-17] MEDS: sodium chloride 1 gm Tablet PO ×3 (08:10→21:28)
[2023-03-17] MEDS: pantoprazole 40 mg SDV IVP (08:10)
--- NOTE | 2023-03-17 10:31 | CT_ITS ---
WS: [id number] CT CHEST TECHNIQUE: Contrast enhanced CT of the chest with coronal and sagittal reformatted images. CLINICAL INFORMATION: lung abscess vs empyema COMPARISON: CTA 03/13/2023 DLP: 688.[address] scans at [facility] use at least one of these dose optimization techniques: automated e xposure control; mA and/or kV adjustment per patient size (includes targeted exams where dose is matc hed to clinical indication); or iterative reconstruction. FINDINGS: Again seen are multifocal opacities mainly in subpleural location throughout both lungs with increase d central cavitation compared to previous. Overall interstitial edema and groundglass infiltrates hav e improved compared to previous. Trace LEFT pleural fluid. Improved lung aeration today. Differential considerations are unchanged including fungal and bacterial pneumonia with cavitation and lung absce ss versus septic emboli. Reactive anterior mediastinal lymph nodes. No axillary lymphadenopathy.Hepatomegaly. Diffuse fatty fi ltration of the liver. Previous postoperative changes dorsal thoracic fusion with S-shaped thoracic s coliosis. IMPRESSION: 1. Again seen are numerous peripheral pulmonary opacities with increased central cavitation today. D ifferential considerations include fungal or bacterial pneumonia with cavitation and abscess formatio n versus septic emboli. 2. Hazy diffuse groundglass infiltrates and interstitial edema has improved compared to previous wit h improved lung aeration. 3. Trace LEFT pleural fluid. Pleural fluid has improved. RIGHT basilar atelectasis. 4. No other significant changes.
[2023-03-17] MEDS: iohexol 350 mg/mL 500 mL Btl (per mL) IV (10:51)
[2023-03-17 11:34] LABS: Glucose Point of Care 160 mg/dL (70-110)
[2023-03-17] MEDS: potassium chloride ER 20 mEq Tablet 40 MEQ PO (12:11)
--- NOTE | 2023-03-17 14:02 | PM.PN ---
Subjective Subjective: No acute events overnight. Patient has remained hemodynamically stable. Tmax in last 24 hours 99.9 Fahrenheit. Patient herself denies any nausea, vomiting, headache. Remains on room air. Blood work appreciated for persistent leukocytosis of 14.3, hemoglobin stable at 7.4, sodium of 132, potassium of 3.4 with creatinine of 0.8, urine output last documented last 24 hours of around 3 L. Medications: Reviewed: Yes Vitals/I&O/Wt Last Vital Signs Temp 98.4 F 03/17/23 12:00 Pulse 76 03/17/23 12:00 Resp 11 L 03/17/23 12:00 BP 126/63 03/17/23 12:00 Pulse Ox 92 03/17/23 12:00 O2 Del Method Room Air 03/17/23 12:00 O2 Flow Rate 2 03/16/23 08:30 03/16/23 03/17/23 03/17/23 22:59 06:59 14:59 Intake Total 710 / 4060 1650 / 5710 950 / 950 Output Total 300 / 300 Balance 710 / 1060 1650 / 2710 650 / 650 Weight last 48 hrs Weight 131.769 kg Weight 124.738 kg Physical Exam Narrative: General: No acute distress, AO x3, NC oxygen supplementation, sick appearing, obese HEENT: PERRLA, pupils bilaterally equal and reactive Chest: Diffuse rhonchi all over lung, normal vascular breath sounds bilaterally over lower lung chatman, coarse crackles, right more than left CVS: S1-S2 regular, no murmurs, tachycardia, no gallops, no rubs Abdomen: Soft, nontender, no organomegaly, bowel sounds present, morbidly obese Neuro: No focal deficits, no facial deformity, AO x3, power 5/5 in all limbs Urinary Catheter Management: Skinner: Cath Placed During This Visit: yes Reason for Continuing Indwelling Catheter: Accurate Measurement of Urinary Output in Critically Ill Patients Urinary Catheter Date of Insertion: 03/11/23 Urinary Catheter Time of Insertion: 09:05 Data 03/17/23 04:25 03/17/23 04:25 Micro: Microbiology 03/17/23 04:25 Blood Culture - Preliminary Blood SPECIMEN COLLECTED 03/17/23 04:25 Blood Culture - Preliminary Blood SPECIMEN COLLECTED 03/13/23 12:10 Gram Stain - Final Sputum - Expectorated Sputum Sputum Culture - Final Methicillin Resis Staph Aureus A&P Assessment and plan (1) MRSA (methicillin resistant Staphylococcus aureus) septicemia: (2) Septic embolism: (3) Severe sepsis: Ruled in with tachycardia, bacteremia, started organ dysfunction with acute kidney injury, hypoxia, resolving altered mental status. Keep mean artery pressure 65, oxygen saturation over 90%. Follow-up blood cultures. Repeat blood cultures today. Blood culture from 03/10 positive for MRSA. (4) MRSA bacteremia: Blood cultures from 03/10 positive. Repeat blood cultures sent on 03/13. Unclear source. Patient gives history of Staphylococcus bacteremia in past from osteomyelitis of bilateral great toes. Does give history of hardware in spine for scoliosis. No recent skin breakdown, animal bite. Possible MRSA pneumonia with high concerns for septic emboli to the lungs. Appreciate CT lumbar and thoracic spine results which was negative for discitis or osteomyelitis. Echocardiogram pending. Lungs Given concerns for septic emboli to there is a high concern for possible infective endocarditis. We will consult cardiology for L[place]. Patient is agreeable. Appreciate ID recommendations. (5) Hypoxia: Most likely in setting of MRSA pneumonia along with septic emboli. PE ruled out. Aggressive pulmonary toilet with incentive spirometry and flutter valve. Pulmicort twice daily, ipratropium, Xopenex every 6 hourly. Keep oxygen saturation over 90%. Out of bed to chair. Sputum culture pending. Follow-up results. Continue with vancomycin along with IV meropenem. Dose antibiotics renally. (6) Bilateral interstitial pneumonia: With concerns for septic emboli. (7) ADRY (acute kidney injury): Baseline creatinine around 1. Resolved. Continues to have metabolic acidosis. Medical reconciliation done for nephrotoxic drugs. Strict input output charting. Continue to monitor fluid status. Hold off on IV fluids. Patient around 6 L positive now. Good urine output last 24 hours. Possibly repeat oral Lasix later in the day depending on urine output. Monitor Vanco trough levels. (8) Hyponatremia: In combination with pseudohyponatremia with hyperglycemia. Start oral salt tablets 1 g 3 times daily. Monitor BMP daily for now. (9) Diabetes: DKA has resolved. Anion gap closed. As per patient she used to be on insulin pump which so far has not been functioning well so patient has stopped using currently. Currently she was taking 45 units of Lantus along with 40 to 50 units of Humalog with each meals. A1c more than 10. Continue with insulin sliding scale at high-dose protocol before meals and at bedtime, Humalog 10 units premeals. Increase Lantus to 45 units twice daily. Hypoglycemia protocol. Continue with clear liquid carb consistent diet for now. (10) Acute encephalopathy: Resolved. (11) DKA (diabetic ketoacidosis): Resolved. Anion gap closed. (12) Hypokalemia: Replace with 80 mg of oral potassium. Monitor daily (13) Hypomagnesemia: Received placement. Follow-up magnesium level. Monitoring daily (14) Familial hypertriglyceridemia: Chronic. As per patient history of familial hypertriglyceridemia. Failed multiple outpatient medications. States baseline triglyceride levels are usually over 10,000. We will request outpatient documents. Triglyceride level more than thousand. Stable. Given chronic triglyceride level being high for now we will stop the insulin drip even if triglyceride levels are more than 500. Continue to monitor triglyceride levels daily. Plan Hypertension: Goal blood pressure less than 140/90 mmHg. Blood pressure is elevated to more than 170. Continue with amlodipine 5 mg oral daily. Continues to have tachycardia. For now we will hold off on rate limiting medications. Filling defect in left common iliac and internal iliac: High suspicion of thrombus. PE and lower limb DVT is ruled out. Cannot rule out external compression in setting of possible May-Thurner syndrome. Patient could not tolerate MRI again. With concerns for septic emboli to lung there is a higher risk of pulmonary infarct or hemorrhage. DVT and PE has been ruled out. For now we will stop the heparin drip and continue to monitor. Familial hyperlipidemia, Chronic pancreatitis, Chronic back pain Scoliosis: Postoperative. Full code Carb consistent diet Heparin drip will suffice as DVT prophylaxis. Protonix for PUD prophylaxis. Plan for the day: Patient was febrile up to 99.9 Fahrenheit yesterday. Respiratory viral panel checked was negative. Repeat blood cultures sent on 03/17 3. Repeat blood cultures from 03/13 so far negative. PICC line Placed on 03/16. Given repeat fever after 3 days, persistent leukocytosis for last few days will plan for repeat CT chest with contrast to rule out empyema versus pulmonary abscess given concerns for septic emboli. Continue with IV vancomycin. Follow trough levels. Continue with meropenem to finish a 7-day course with last dose of antibiotics on 03/20. Blood pressures well controlled. Continue with current antihypertensive therapy. Blood sugar appropriately controlled. Replete potassium with 40 mg of oral. Continue with oral salt supplementation for now. Urine output improving. Discharge plan: Patient will need IV antibiotics for next 6 weeks most likely from 03/13. Patient will get IV antibiotics through infusion company, patient will be self pain. Will be coming in weekly to GI lab for PICC line dressing and labs. Plan to discharge in next 48 hours if remains afebrile and repeat blood cultures from 03/17 remain negative. Care plan discussed in detail with patient and patient's at bedside. All the questions were answered. Attestations Medical Necessity Statement*: Requires further hospitalization for management of MRSA bacteremia while outpatient antibiotics are sought and repeat blood cultures are followed Diagnoses MRSA (methicillin resistant Staphylococcus aureus) septicemia A41.02 Septic embolism I76 Severe sepsis A41.9; R65.20 MRSA bacteremia R78.81; B95.62 Hypoxia R09.02 Bilateral interstitial pneumonia J84.9 ADRY (acute kidney injury) N17.9 Hyponatremia E87.1 Diabetes E11.9 Acute encephalopathy G93.40 DKA (diabetic ketoacidosis) E11.10 Hypokalemia E87.6 Hypomagnesemia E83.42 Familial hypertriglyceridemia E78.1
[2023-03-17 16:50] LABS: Glucose Point of Care 257 mg/dL (70-110)
[2023-03-17] MEDS: vancomycin 1,500 MG/300 ML PIGGYBACK 200 MG IV (18:08)
[2023-03-17] MEDS: atorvastatin 40 mg Tablet PO (21:28)
[2023-03-17 21:45] LABS: Glucose Point of Care 201 mg/dL (70-110)
[2023-03-18] VITALS (8 sets, daily range): BP systolic 135–153; BP diastolic 60–87; PULSE 79–86; RESP 15–18; TEMP 36.8–37; O2SAT 94–96
[2023-03-18] MEDS: meropenem 1,000 MG in sodium chloride 0.9% (plus) 50 ML 100 MG IV ×2 (02:55→09:44)
[2023-03-18] MEDS: morphine 4 mg/mL SDV 1 mL 2 MG IVP ×2 (03:08→10:23)
[2023-03-18] MEDS: heparin 5,000 unit/mL INJ 1 mL 5000 UNIT SUBCUT (04:03)
[2023-03-18 05:31] LABS: Hematocrit 24.1 % (36-47); Mean Corpuscular HGB Conc 31.5 g/dL (30-55); Mean Corpuscular Hemoglobin 29.1 pg (27-33); Mean Corpuscular Volume 92.3 fl (85-98); Mean Platelet Volume 9.2 fL (7.4-10.4); Platelet Count 372 10^3/cmm (157-399); Red Blood Count 2.61 10^6/uL (3.85-5.65); Red Cell Distribution Width 14.5 % (12.1-15.1); White Blood Count 17.82 10^3/uL (3.29-11.43)
[2023-03-18] MEDS: vancomycin 1,500 MG/300 ML PIGGYBACK 200 MG IV (05:55)
[2023-03-18] MEDS: oxyCODONE-APAP 5-325 mg Tablet 1 TAB PO (06:04)
[2023-03-18 06:05] LABS: Procalcitonin 0.99 ng/mL (0-0.5)
[2023-03-18 06:14] LABS: Alanine Aminotransferase 24 U/L (0-33); Albumin Level 2.4 g/dL (3.5-5.2); Alkaline Phosphatase 153 U/L (35-105); Aspartate Amino Transferase 20 U/L (0-32); Blood Urea Nitrogen 13 mg/dL (6-20); Calcium 8.1 mg/dL (8.5-10.5); Carbon Dioxide 20 mmol/L (22-29); Chloride 106 mmol/L (98-107); Globulin 3.7 g/dL (1.3-4.6); Glomerular Filtration Rate 55.9 mL/min (90-130); Glucose 125 mg/dL (65-115); Osmolality Calculated 286 mOsm/kg (285-295); Slide Review Slide Review Perform; Sodium 137 mmol/L (136-145); Total Bilirubin 0.3 mg/dL (0.15-1.2); Total Protein 6.1 g/dL (6.6-8.7)
[2023-03-18 06:15] LABS: Absolute Neutrophil 12.8 10^3/cmm (1.4-6.5); Absolute Segmented Neutrophil 12.8 10/cmm (1.6-7.1); Eosinophils 0 %; Lymphocytes 13 %; Lymphocytes Absolute 2.3 10^3/cmm (1.2-3.4); Monocytes Absolute 0.2 10^3/cmm (0.1-0.6); Platelet Estimate Normal (Normal); Segmented Neutrophils 72 %; Total Cells Counted 100 (0-100)
[2023-03-18 06:26] LABS: Glucose Point of Care 167 mg/dL (70-110)
--- NOTE | 2023-03-18 07:55 | P.PN_ITS ---
Subjective Subjective: Infectious disease progress note. Patient afebrile over the last [address] chest completed, shows known cavitation more pronounced now, likely to be progression of existing findings. Repeat blood cultures remain negative to date. Remains on room air saturating 94% hemodynamically stable. Medications: Reviewed: Yes Vitals/I&O/Wt Last Vital Signs Temp 98.5 F 03/18/23 07:37 Pulse 86 03/18/23 07:37 Resp 17 03/18/23 06:04 BP 153/74 03/18/23 07:37 Pulse Ox 94 03/18/23 07:37 O2 Del Method Room Air 03/18/23 07:37 O2 Flow Rate 2 03/16/23 08:30 03/17/23 03/18/23 03/18/23 22:59 06:59 14:59 Intake Total 2090 / 3040 4350 / 7390 Output Total 2500 / 2800 Balance -410 / 240 4350 / 4590 Weight last 48 hrs Weight 132.63 kg Weight 131.769 kg Physical Exam Narrative: General: No acute distress, AO x3 HEENT: PERRLA, pupils bilaterally equal and reactive, pallors not present Chest: Normal vesicular breath sounds, no added sounds, equal good air entry bilaterally CVS: S1-S2 regular, no murmurs, no tachycardia, no gallops, no rubs Abdomen: Soft, nontender, no organomegaly, bowel sounds present Neuro: No focal deficits, no facial deformity, AO x3, power 5/5 in all limbs Urinary Catheter Management: Skinner: Cath Placed During This Visit: yes Reason for Continuing Indwelling Catheter: Accurate Measurement of Urinary Output in Critically Ill Patients Urinary Catheter Date of Insertion: 03/11/23 Urinary Catheter Time of Insertion: 09:05 Data 03/18/23 05:15 03/18/23 05:15 Micro: Microbiology 03/17/23 04:25 Blood Culture - Preliminary Blood NEGATIVE TO DATE 03/17/23 04:25 Blood Culture - Preliminary Blood NEGATIVE TO DATE Blood culture: 11 3: Pending Blood culture 03/13/2023: Negative to date Blood culture 03/11/2023: MRSA Sputum culture 03/13/2023 MRSA Other data: [address] [address] [address] Scan Report Signed Patient: Michelle Morales [id number] 1985 [id number] Age/Sex: 37 / F ADM Date: 03/11/23 Loc: U Room/Bed: [facility] Attending Dr: Lane Ho MD Ordering Provider/Ordering MD: Lane Ho MD Date of Service: 03/17/23 Procedure(s): CT chest w con* [id number] Accession Number(s): [id number] Report Number: [id number] WS: [id number] CT CHEST TECHNIQUE: Contrast enhanced CT of the chest with coronal and sagittal reformatted images. CLINICAL INFORMATION: lung abscess vs empyema COMPARISON: CTA 03/13/2023 DLP: 688.[address] scans at [facility] use at least one of these dose optimization techniques: automated exposure control; mA and/or kV adjustment per patient size (includes targeted exams where dose is matched to clinical indication); or iterative reconstruction. FINDINGS: Again seen are multifocal opacities mainly in subpleural location throughout both lungs with increased central cavitation compared to previous. Overall interstitial edema and groundglass infiltrates have improved compared to previous. Trace LEFT pleural fluid. Improved lung aeration today. Differential considerations are unchanged including fungal and bacterial pneumonia with cavitation and lung abscess versus septic emboli. Reactive anterior mediastinal lymph nodes. No axillary lymp hadenopathy.Hepatomegaly. Diffuse fatty filtration of the liver. Previous postoperative changes dorsal thoracic fusion with S-shaped thoracic scoliosis. IMPRESSION: 1.? Again seen are numerous peripheral pulmonary opacities with increased central cavitation today. Differential considerations include fungal or bacterial pneumonia with cavitation and abscess formation versus septic emboli. 2.? Hazy diffuse groundglass infiltrates and interstitial edema has improved compared to previous with improved lung aeration. 3.? Trace LEFT pleural fluid. Pleural fluid has improved. RIGHT basilar atelect asis. 4.? No other significant changes. A&P Assessment and plan (1) MRSA (methicillin resistant Staphylococcus aureus) septicemia: (2) Septic embolism: Plan 37-year-old lady with multiple comorbidities, history of recurrent MRSA skin infections and osteomyelitis, most recently May 26, 2022, presenting currently with MRSA septicemia with septic embolization of the lungs. Blood culture positive from 03/11/2023, follow-up blood cultures from March 13, 2023 negative to date. Continue vancomycin with a goal trough of 15-20 for treatment of MRSA septicemia. CT of the chest with bilateral infiltrates with cavitation, highly suspicious for septic embolization. Sputum culture with MRSA. L[place] negative for any gross vegetations. Favor septic emboli as the likely cause of lung infiltrates at this time. Unclear source of MRSA Septicemia. Currently patient does not appear to have any open sores or lesions. She has a lot of hardware in her back, potentially may have been bacteremic at some point during her course with MRSA osteomyelitis earlier this year, concern for potential hardware involvement of the back. However MRI unable to be completed. CT w..contrast without evidence of discitis or osteomyelitis. Incidentally noted filling defect in the left common iliac and internal iliac vein suspicious for thrombus, follow up Venous duplex of the lower extremity was negative for any thrombus. CT of the chest abdomen and pelvis did not show any abdominal events. CT chest with pneumonia as noted above. Currently afebrile over last 24 hrs recommend a minimum 6-week course of IV antibiotics with vancomycin with target trough of 15-20.Weekly CBC, cr, vanc trough while on above abx course (03/13/23- 04/24/2023). will need f/up chest CT in 3 weeks f/up ID clinic Apr Attestations Medical Necessity Statement*: per admitting Coding Level of Care Code Acute Code for g Fwd Diagnoses MRSA (methicillin resistant Staphylococcus aureus) septicemia A41.02 Septic embolism I76
[2023-03-18] MEDS: insulin glargine 100 units/1 mL 45 UNIT SUBCUT (09:40)
[2023-03-18] MEDS: insulin lispro 100 unit/1 mL SUBCUT ×3 (09:41→12:54)
[2023-03-18] MEDS: ferrous gluconate 324 mg Tablet PO (09:41)
[2023-03-18] MEDS: carvedilol 6.25 mg Tablet PO (09:42)
[2023-03-18] MEDS: sodium chloride 1 gm Tablet PO (09:42)
[2023-03-18] MEDS: lisinopril 5 mg Tablet PO (09:42)
[2023-03-18] MEDS: pantoprazole 40 mg SDV IVP (09:42)
[2023-03-18] MEDS: nystatin powder 15 gm Btl 1 APPLIC TOPICAL (09:43)
[2023-03-18] MEDS: sodium chloride 0.9% 1,000 ML 100 ML IV (09:43)
[2023-03-18 09:49] LABS: Vancomycin Trough 21.8 ug/mL (10-15)
--- NOTE | 2023-03-18 11:09 | PM.DCS ---
Discharge Providers Date of Admission: 03/11/23 07:01 Date of Discharge: March 18, 2023 Attending Provider at Admission: Severo Cole Attending Provider at Discharge: Lane Ho MD Diagnoses at Discharge Discharge Diagnosis (1) MRSA (methicillin resistant Staphylococcus aureus) septicemia: Status: Acute (2) Septic embolism: Status: Acute (3) Familial hypertriglyceridemia: Status: Acute (4) Diabetes: Status: Acute (5) Hypokalemia: Status: Acute (6) DKA (diabetic ketoacidosis): Status: Acute (7) Interstitial pneumonia: Status: Acute (8) Hyponatremia: Status: Acute (9) ADRY (acute kidney injury): Status: Acute (10) Multiple lung abscesses: Status: Acute Reason for Visit Reason for Visit: CONFUSED Hospital Course Hospital Course Michelle Morales is a 37 year old female with a past medical history of familial hypertriglyceridemia, chronic recurrent pancreatitis, insulin-dependent diabetes mellitus for which till recently she was on insulin pump which is not being currently and hence taking 45 units of Lantus daily along with 45 units of Humalog premeals, MRSA abscess and osteomyelitis of right foot post amputation and 8 to 6 weeks of IV antibiotics and [place] which was later changed to daptomycin due to concerns for acute kidney injury. She was brought into the emergency room on March 11, 2023 with chief complaints of altered mental status.? Per her who brought her in at that time, patient was noted to have an acute change in mentation with confusion at around 11 PM on 03/10/2023.? In the ER she was found to have signs of sepsis with fever up to 103 Fahrenheit, tachycardia 130s, leukocytosis of 17 and evidence of DKA. Patient states that she had been having a lot of nausea and vomiting in the 3 to 4 days leading up to the admission but she had attributed this to her known chronic pancreatitis.? She had also additionally been having some abdominal pain with vaginal discharge which she thought was related to having an ovarian torsion/cyst however did not seek further medical attention regarding the same.? Denies any fever or chills.? States that she had been experiencing some some chest discomfort and difficulty breathing in the 3 to 4 days leading up to admission. She received treatment with insulin infusion as per DKA protocol.? She was started on broad-spectrum antibiotics with ceftriaxone, linezolid empirically, sepsis source evaluation revealed CT chest abdomen and pelvis with nodular groundglass opacities predominantly in a peripheral distribution compatible with interstitial pneumonia versus cryptogenic organizing pneumonia.? Eventually her blood cultures from March 11 additionally resulted positive for MRSA. Repeat blood cultures from March 13 has so far been negative. CT lumbar and thoracic spine were negative for discitis and osteomyelitis though there was a concern for a possible opacity in iliac vein with concerns for possible thrombus for which she was started on a heparin drip. To rule out pulmonary embolism she underwent CTA which was concerning for possibility of multiple septic emboli with cavitation. Lower limb Doppler was negative for DVT. To confirm iliac thrombus versus possible of May Thurner syndrome MRI was tried multiple times but could not be done because of patient's claustrophobia. As DVT and PE was ruled out with patient being susceptible to pulmonary hemorrhage given septic emboli heparin drip was discontinued. Patient hospitalization was complicated by her developing ADRY which resolved with IV hydration. LONDON was done which ruled out infective endocarditis. ID was consulted. For hypertriglyceridemia triglycerides levels were checked and were found to be more than 1400 which seems to be patient's baseline. For type 2 diabetes mellitus patient insulin requirement were monitored. Currently she is requiring 45 units of Lantus twice daily along with Humalog premeals as per sliding scale. During hospitalization patient was found to have elevated blood pressures for which her antihypertensives were adjusted and currently she is doing well on Coreg 6.25 mg twice daily and amlodipine 10 mg daily. She has been discharged hemodynamic stable condition to home on IV antibiotics with vancomycin for 6 weeks with advised to check CBC, LFTs, creatinine and Vanco trough weekly. PICC line was placed. She is advised to have weekly lab draws and PICC line dressing done at GI Lab. Physical Exam Narrative: General: No acute distress, AO x3, NC oxygen supplementation, sick appearing, obese HEENT: PERRLA, pupils bilaterally equal and reactive Chest: Diffuse rhonchi all over lung, normal vascular breath sounds bilaterally over lower lung chatman, coarse crackles, right more than left CVS: S1-S2 regular, no murmurs, tachycardia, no gallops, no rubs Abdomen: Soft, nontender, no organomegaly, bowel sounds present, morbidly obese Neuro: No focal deficits, no facial deformity, AO x3, power 5/5 in all limbs Urinary Catheter Management: Skinner: Cath Placed During This Visit: yes Reason for Continuing Indwelling Catheter: Accurate Measurement of Urinary Output in Critically Ill Patients Urinary Catheter Date of Insertion: 03/11/23 Urinary Catheter Time of Insertion: 09:05 Discharge Data Studies Completed and Pending Completed Studies During Hospitalization Category Date Time Status CT chest abdomen pelvis [CT chest abdpel w/*[id number] Cat Scan 03/11/23 02:08 Completed ] Stat CT chest w con* 10070 Routine Cat Scan 03/17/23 10:[address] head wo con* 34607 Stat Cat Scan 03/11/23 00:[address] lumbar spine w con 03064 Routine Cat Scan 03/13/23 11:[address] thoracic spine w con 75893 Routine Cat Scan 03/13/23 11:06 Completed CTA chest [CT angio chest PE protcl 58894] Stat Cat Scan 03/13/23 15:29 Completed CXRP [XR chest 1V portable [id number]] Routine Exams 03/16/23 12:44 Completed XR chest 1V portable [id number] Stat Exams 03/11/23 02:33 Completed XR chest 1V portable [id number] Stat Exams 03/13/23 07:53 Completed CV. echo complete* 13577 Routine Ultrasound 03/14/23 16:53 Completed US guide needle placemt 83340 Stat Ultrasound 03/11/23 06:30 Completed US venous duplex lower extremity bilat [CV venous Ultrasound 03/13/23 15:29 [place] [address]] Stat Pending at discharge Category Date Time Status Blood Culture AM LABS Lab 03/17/23 04:25 Results Blood Culture Stat Lab 03/13/23 11:16 Results Catheter Tip Culture Routine Lab 03/16/23 15:00 Received Comprehensive Metabolic Panel AM LABS Lab 03/19/23 04:00 Ordered Fibrinogen Degradation Product Routine Lab 03/14/23 10:02 Received Fungitell Glucan Assay (Blood) Routine Lab 03/13/23 05:35 Received Histoplasma Quantitative AG Routine Lab 03/13/23 05:35 Received Stool Culture - Enteric [Salmonella / Shigella / Campy] Lab 03/11/23 19:47 Ordered Routine Urine Culture Routine Lab 03/17/23 09:26 Received Vancomycin Trough Timed Lab 03/18/23 17:00 Ordered US echo LONDON [CV. echo transesophageal 68810] Routine Ultrasound 03/15/23 10:23 Taken Radiology Impressions Head CT 03/11/23 00:04 IMPRESSION: 1. No acute intracranial hemorrhage or mass effect. 2. No definite acute infarct by CT, see above. 3. Other findings discussed above. Chest/Abdomen/Pelvis CT 03/11/23 02:08 IMPRESSION: Nodular ground-glass opacities in a predominantly peripheral distribution compatible with an interstitial pneumonia versus cryptogenic organizing pneumonia. IMPRESSION: 1. There are no acute abdominal findings. 2. Hepatomegaly and mild fatty infiltration of the liver Venous Duplex 03/13/23 15:29 IMPRESSION: No evidence of deep vein thrombosis. Echocardiogram: ?CONCLUSIONS ?LV systolic function is normal with EF 55 to 60%. ?Mild mitral regurgitation. ?Echogenic structure noted on the base of tricuspid valve.? ?However visualization is limited.? Cannot rule out vegetation. ?Mild tricuspid regurgitation. ?No comparison studies are available. ?Edvin Martin MD ?(Electronically Signed) ?Final Date:? ? ? 14 March 2023 L[place]ON: CONCLUSIONS ?LV systolic function is normal. ?No valvular vegetations noted. ?No left atrial appendage thrombus seen ?Edvin Martin MD ?(Electronically Signed) ?Final Date:? ? ? 18 March 2023 Microbiology 03/17/23 04:25 Blood Blood Culture - Preliminary NEGATIVE TO DATE 03/17/23 04:25 Blood Blood Culture - Preliminary NEGATIVE TO DATE 03/13/23 12:10 Sputum - Expectorated Sputum Gram Stain - Final 03/13/23 12:10 Sputum - Expectorated Sputum Sputum Culture - Final Methicillin Resis Staph Aureus 03/14/23 21:13 Urine Kidney Bacterial Antigens - Final 03/13/23 11:05 Blood Blood Culture - Preliminary NEGATIVE TO DATE 03/13/23 11:16 Blood Blood Culture - Preliminary NEGATIVE TO DATE 03/11/23 01:50 Blood Blood Culture - Final Methicillin Resis Staph Aureus 03/11/23 01:50 Blood Blood Culture - Final Methicillin Resis Staph Aureus 03/11/23 01:05 Urine,Clean Catch Urine Culture - Final Laboratory Results WBC 17.82 10^3/uL (3.29-11.43) H 03/18/23 05:15 Corrected WBC Cancelled 03/14/23 05:35 RBC 2.61 10^6/uL (3.85-5.65) L 03/18/23 05:15 Hgb 7.60 g/dL (11.27-16.99) L 03/18/23 05:15 Hct 24.1 % (36-47) L 03/18/23 05:15 MCV 92.3 fl (85-98) 03/18/23 05:15 MCH 29.1 pg (27-33) 03/18/23 05:15 MCHC 31.5 g/dL (30-55) 03/18/23 05:15 RDW 14.5 % (12.1-15.1) 03/18/23 05:15 Plt Count 372 10^3/cmm (157-399) 03/18/23 05:15 MPV 9.2 fL (7.4-10.4) 03/18/23 05:15 Gran % Cancelled 03/14/23 05:35 Neut % (Auto) 65.2 % 03/17/23 04:25 Lymph % (Auto) Not Reportable 03/18/23 05:15 [place] % (Auto) Not Reportable 03/18/23 05:15 Eos % (Auto) 1.5 % 03/17/23 04:25 Baso % (Auto) 0.5 % 03/17/23 04:25 Neut # (Auto) 9.37 10^3/uL (1.8-7.7) H 03/17/23 04:25 Lymph # (Auto) Not Reportable 03/18/23 05:15 [place] # (Auto) Not Reportable 03/18/23 05:15 Eos # (Auto) 0.2 10^3/uL (0.0-0.8) 03/17/23 04:25 Baso # (Auto) 0.1 10^3/uL (0.0-0.1) 03/17/23 04:25 Absolute Gran (auto) Cancelled 03/14/23 05:35 Nucleated RBC % (auto) 0.1 % 03/17/23 04:25 Total Counted 100 (0-100) 03/18/23 05:15 Atypical Lymphs % 0.0 % (0-5) 03/18/23 05:15 Absolute Neutrophils 12.8 10^3/cmm (1.4-6.5) H 03/18/23 05:15 Segmented Neutrophils 72 % 03/18/23 05:15 Abs Segm Neuts (Man) 12.8 10/cmm (1.6-7.1) H 03/18/23 05:15 Band Neutrophils 0.0 % 03/18/23 05:15 Abs Band Neuts (Man) 0.0 10^3/cmm (0.0-1.2) 03/18/23 05:15 Absolute Lymphocytes 2.3 10^3/cmm (1.2-3.4) 03/18/23 05:15 Lymphocytes (Manual) 13 % 03/18/23 05:15 Monocytes (Manual) 1.0 % 03/18/23 05:15 Absolute Monocytes 0.2 10^3/cmm (0.1-0.6) 03/18/23 05:15 Eosinophils (Manual) 0 % 03/18/23 05:15 Absolute Eosinophils 0.0 10^3/cmm (0.0-0.7) 03/18/23 05:15 Basophils (Manual) 0.0 % 03/18/23 05:15 Absolute Basophils 0.0 10^3/cmm (0.0-0.2) 03/18/23 05:15 Metamyelocytes 7.0 % 03/18/23 05:15 Myelocytes 3.0 % 03/18/23 05:15 Nucleated RBCs # 0.0 /100WBC 03/17/23 04:25 Platelet Estimate Normal (Normal) 03/18/23 05:15 PT 16.50 SECONDS (12.1-14.9) H 03/14/23 10:02 INR 1.29 (0.8-1.2) H 03/14/23 10:02 APTT 40.5 SECONDS (23.9-36.7) H 03/15/23 10:15 Fibrinogen 868 mg/dL (174-498) H 03/14/23 10:02 Fibrin Degrad Products Cancelled 03/14/23 05:47 D-Dimer 8.24 ug/mLFEU (0-0.59) H 03/14/23 10:02 Specimen Type Not specified 03/11/23 00:40 Sample Site Brachial, left 03/11/23 00:40 ABG pH 7.49 (7.35-7.45) H 03/11/23 00:40 ABG pCO2 23.1 mmHg (35-45) L 03/11/23 00:40 ABG pO2 61.8 mmHg (80.0-100.0) L 03/11/23 00:40 ABG HCO3 17.7 mmol/L (22-26) L 03/11/23 00:40 ABG Base Excess -4.1 mmol/L (-2.0-2.0) L 03/11/23 00:40 Tomer Test N/a 03/11/23 00:40 Hematocrit 34.5 % (37-47) L 03/11/23 00:40 O2 Delivery Device None 03/11/23 00:40 FiO2 21.0 % 03/11/23 00:40 Printing Supervisor ID [email or web address] 03/11/23 00:40 Sodium 137 mmol/L (136-145) 03/18/23 05:15 Potassium 4.0 mmol/L (3.5-5.1) 03/18/23 05:15 Chloride 106 mmol/L (98-107) 03/18/23 05:15 Carbon Dioxide 20 mmol/L (22-29) L 03/18/23 05:15 Anion Gap 15.0 (5-19) 03/18/23 05:15 BUN 13 mg/dL (6-20) 03/18/23 05:15 Creatinine 1.1 mg/dL (0.5-0.9) H 03/18/23 05:15 GFR Calculation 55.9 mL/min (90-130) L 03/18/23 05:15 Glucose 125 mg/dL (65-115) H 03/18/23 05:15 POC Glucose 167 mg/dL (70-110) H 03/18/23 06:15 Estimat Average Glucose 249 03/14/23 09:56 Hemoglobin A1c 10.3 % (4.0-6.0) H 03/14/23 09:56 Calculated Osmolality 286 mOsm/kg (285-295) 03/18/23 05:15 Lactic Acid 1.7 mmol/L (0.5-2.2) 03/13/23 11:16 Lactic Acid (Sepsis) 3.9 mmol/L (0.5-2.2) H 03/11/23 03:20 Calcium 8.1 mg/dL (8.5-10.5) L 03/18/23 05:15 Phosphorus 2.9 mg/dL (2.5-4.5) 03/17/23 04:25 Magnesium 1.9 mg/dL (1.7-2.3) 03/17/23 04:25 Iron 7 ug/dL (37-145) L 03/13/23 09:24 TIBC 96 mcg/dl 03/13/23 09:24 % Saturation 7.2 % (20-50) L 03/13/23 09:24 Unsat Iron Binding 89 ug/dL (112-347) L 03/13/23 09:24 Total Bilirubin 0.3 mg/dL (0.15-1.2) 03/18/23 05:15 AST 20 U/L (0-32) 03/18/23 05:15 ALT 24 U/L (0-33) 03/18/23 05:15 Alkaline Phosphatase 153 U/L (35-105) H 03/18/23 05:15 Total Protein 6.1 g/dL (6.6-8.7) L 03/18/23 05:15 Albumin 2.4 g/dL (3.5-5.2) L 03/18/23 05:15 Globulin 3.7 g/dL (1.3-4.6) 03/18/23 05:15 Triglycerides 1188 mg/dL (0-150) H 03/14/23 09:56 Cholesterol 329 mg/dL (0-200) H 03/14/23 09:56 LDL Cholesterol Direct 32 mg/dL (0-100) 03/14/23 09:56 LDL Cholesterol, Calc Not Reportable 03/14/23 09:56 Total VLDL Cholesterol 238 mg/dL (0-30) H 03/14/23 09:56 HDL Cholesterol 11 mg/dL (60-100) L 03/14/23 09:56 Cholesterol/HDL Ratio 29.91 mg/dL (0.0-4.40) H 03/14/23 09:56 Vitamin B12 > 2000 pg/mL (232-1245) H 03/13/23 09:24 Folate 16.6 ng/mL (4.8-37.3) 03/14/23 09:56 Beta-Hydroxybutyrate 2.50 mmol/L H 03/11/23 01:50 Procalcitonin 0.99 ng/mL (0-0.5) H 03/18/23 05:15 TSH 0.73 uIU/mL (0.27-4.20) 03/11/23 00:20 HCG, Qual Negative (Negative) 03/11/23 00:20 Urine Color Cancelled 03/11/23 01:05 Urine Color Yellow (Yellow) 03/11/23 01:05 Urine Appearance Cancelled 03/11/23 01:05 Urine Appearance Cloudy (CLEAR) A 03/11/23 01:05 Urine pH 6 (5-7) 03/11/23 01:05 Urine pH Cancelled 03/11/23 01:05 Ur Specific [place] 1.010 (1.005-1.030) 03/11/23 01:05 Ur Specific [place] Cancelled 03/11/23 01:05 Urine Protein 3+ (Negative) H 03/11/23 01:05 Urine Protein Cancelled 03/11/23 01:05 Urine Glucose (UA) 4+ (Normal) H 03/11/23 01:05 Urine Glucose (UA) Cancelled 03/11/23 01:05 Urine Ketones 3+ (Negative) H 03/11/23 01:05 Urine Ketones Cancelled 03/11/23 01:05 Urine Blood 3+ (Negative) H 03/11/23 01:05 Urine Blood Cancelled 03/11/23 01:05 Urine Nitrate Cancelled 03/11/23 01:05 Urine Nitrate Negative (Negative) 03/11/23 01:05 Urine Bilirubin Cancelled 03/11/23 01:05 Urine Bilirubin Neg (Negative) 03/11/23 01:05 Prot Sulfosalicylic Acd Cancelled 03/11/23 01:05 Urine Urobilinogen Cancelled 03/11/23 01:05 Urine Urobilinogen Neg mg/dL (Negative) 03/11/23 01:05 Ur Leukocyte Esterase Cancelled 03/11/23 01:05 Ur Leukocyte Esterase Negative (Negative) 03/11/23 01:05 Urine RBC 5-10 /hpf (0-2) H 03/11/23 01:05 Urine WBC 5-10 /hpf (0-5) H 03/11/23 01:05 Ur Squamous Epith Cells 5-10 /hpf (0-5) H 03/11/23 01:05 Amorphous Sediment 2+ /hpf 03/11/23 01:05 Urine Bacteria 1+ /hpf (NONE) H 03/11/23 01:05 Nasal Influ A H1 2009 PCR Not detected (NOT DETECT) 03/16/23 23:23 Vancomycin Trough 21.8 ug/mL (10-15) H 03/18/23 05:15 Urine Opiates Screen Negative ng/mL (Negative) 03/11/23 01:05 Ur Barbiturates Screen Negative ng/mL (Negative) 03/11/23 01:05 Ur Phencyclidine Scrn Negative ng/mL (Negative) 03/11/23 01:05 Ur Amphetamines Screen Negative ng/mL (Negative) 03/11/23 01:05 U Benzodiazepines Scrn Negative ng/mL (Negative) 03/11/23 01:05 Urine Cocaine Screen Negative ng/mL (Negative) 03/11/23 01:05 U Marijuana (THC) Screen Positive ng/mL (Negative) H 03/11/23 01:05 Adenovirus (PCR) Not detected (NOT DETECT) 03/16/23 23:23 C. pneumoniae DNA (PCR) Not detected (NOT DETECT) 03/16/23 23:23 Coronavirus 229E (PCR) Not detected (NOT DETECT) 03/16/23 23:23 Hepatitis A IgM Ab Non-reactive (Nonreactive) 03/13/23 05:35 Hep Bs Antigen Non-reactive (Nonreactive) 03/13/23 05:35 Hep Bs Antibody 104.2 (11.5-1000) 03/13/23 05:35 Hep B Core Total Ab Non-reactive (Nonreactive) 03/13/23 05:35 Hepatitis C Antibody Non-reactive (Nonreactive) 03/13/23 05:35 HIV 1&2 Ab & HIV 1 Ag Non-reactive (Non-Reactiv) 03/13/23 05:35 HIV 1&2 Antibody Non-reactive (Non-Reactiv) 03/13/23 05:35 Human Metapneumovir PCR Not detected (NOT DETECT) 03/16/23 23:23 Influenza A (H1) PCR Not detected (NOT DETECT) 03/16/23 23:23 Influenza A (H3) PCR Not detected (NOT DETECT) 03/16/23 23:23 Influenza Type A (PCR) Not detected (NOT DETECT) 03/16/23 23:23 Influenza Type B (PCR) Not detected (NOT DETECT) 03/16/23 23:23 M. pneumoniae (PCR) Not detected (NOT DETECT) 03/16/23 23:23 Parainfluenza 1 (PCR) Not detected (NOT DETECT) 03/16/23 23:23 Parainfluenza 2 (PCR) Not detected (NOT DETECT) 03/16/23 23:23 Parainfluenza 3 (PCR) Not detected (NOT DETECT) 03/16/23 23:23 Parainfluenza 4 (PCR) Not detected (NOT DETECT) 03/16/23 23:23 RSV Type A (PCR) Not detected (NOT DETECT) 03/16/23 23: RSV Type B (PCR) Not detected (NOT DETECT) 03/16/23 23: Entero/Rhino (PCR) Not detected (NOT DETECT) 03/16/23 23:23 SARS-CoV-2 (PCR) Not detected (NOT DETECT) 03/16/23 23: MRSA (PCR) Detected (NOT DETECTED) A 03/15/23 09:30 TB (QFT) Gold In Tube Negative (NEGATIVE) 03/14/23 09:56 TB Test (QFT) Nil 0.02 IU/mL 03/14/23 09:56 TB Test (QFT) Mitogen 0.81 IU/mL 03/14/23 09:56 TB Test Mitogen - Nil 0.00 IU/mL 03/14/23 09:56 TB Test TB -Nil 0.00 IU/mL 03/14/23 09:56 Vitals Last Vital Signs Temp 98.5 F 03/18/23 07:37 Pulse 86 03/18/23 07:37 Resp 18 03/18/23 10:23 BP 153/74 03/18/23 07:37 Pulse Ox 94 03/18/23 07:37 O2 Del Method Room Air 03/18/23 07:37 O2 Flow Rate 2 03/16/23 08:30 Discharge Plan Discharge Patient Disposition: Home Condition: Stable Prescriptions: New oxycodone-acetaminophen 5-325 mg Tablet 1 tab PO Q6H PRN (Reason: Pain) Qty: 10 0RF atorvastatin 40 mg Tablet 40 mg PO BEDTIME Qty: 30 0RF carvedilol 6.25 mg Tablet 6.25 mg PO BID Qty: 60 0RF Lantus Solostar U-100 Insulin 100 unit/mL (3 mL) insulin pen 45 unit SUBCUT BID Qty: 15 0RF fenofibrate 120 mg tablet 120 mg PO DAILY Qty: 30 0RF Continued aspirin 325 mg Tablet 325 - 650 mg PO Q6H PRN (Reason: Pain) pantoprazole 40 mg tablet,delayed release (DR/EC) 40 mg PO DAILY Humalog U-100 Insulin 100 unit/mL solution See Rx Instructions .ROUTE .COMPLEX Rx Instructions: sliding scale as needed as directed ondansetron 4 mg tablet,disintegrating 4 mg PO TID PRN (Reason: Nausea And Vomiting) Creon 12,000-38,000 -60,000 unit capsule,delayed release(DR/EC) See Rx Instructions .ROUTE .COMPLEX Rx Instructions: 1 to 3 caps po with each meal and 1 cap po with snacks Delta-8 Thc Gummies 8 mg PO DAILY PRN (Reason: pancreatitis/back pain) Changed amlodipine 5 mg tablet 10 mg PO DAILY 30 Days Qty: 60 0RF Discontinued lisinopril 20 mg tablet 20 mg PO DAILY potassium chloride 10 mEq tablet extended release 10 meq PO DAILY dicyclomine 20 mg tablet 20 mg PO Q6H PRN (Reason: Abdominal Pain) ibuprofen 200 mg Tablet 400 - 600 mg PO Q6H PRN (Reason: Pain) insulin glargine-yfgn 100 unit/mL solution See Rx Instructions .ROUTE .COMPLEX Rx Instructions: around 35 units subcutaneously at bedtime Discharge Orders: Discharge Order (Routine); Ordered 03/18/23 Ordered By: Lane Ho Other Ambulatory Orders: CT chest w con* [id number] (Routine) Timeframe: 3 Weeks Facility: [facility] - Location: Radiology [facility] Ordered By: Lane Ho Miscellaneous Procedure (Order) Location: None Selected Ordered By: Lane Ho [facility] [Other] - 03/22/23 10:00 am (This is in the [facility]. This is where you will have your PICC line dressing change and labs done weekly. ) [facility] [Provider Group] - 04/20/23 (Please call the Infectious Disease Group on Monday at [phone] to schedule an appointment. Thank you.) [employer] [Outside] (This is the company that is providing your IV abxs and supplies. ) Momo Hsieh MD [Physician] - 03/22/23 9:15 am Discharge Diet: Diabetic and Low Fat Discharge Activity: Resume usual activity and Increase activity as tolerated Patient Instructions: Oxycodone/Acetaminophen (By mouth) (Percocet, Roxicet), Amlodipine (By mouth) (Hypertenipine-2.5, Norvasc, Norliqva), Atorvastatin (By mouth) (Lipitor, Atorvaliq), Carvedilol (By mouth) (Coreg, Coreg CR, Hypertenevide-12.5), Fenofibrate (By mouth) (Tricor, Fenoglide, Antara, Lipofen), Insulin Glargine (By injection) (Lantus, Lantus SoloStar, Toujeo, Semglee), Hyponatremia (ED), Benzodiazepine Use Disorder (ED), Dementia (ED), Non-diabetic Hypoglycemia (ED), Hypoglycemia in a Person with Diabetes (ED), Concussion (ED), Alcohol Intoxication (ED), Subarachnoid Hemorrhage (GEN), Altered Mental Status (ED), Opioid Safety Activity Restrictions/Additional Instructions: Multiple medication changes have been done. Do not take lisinopril for now. Amlodipine dose has been increased to 10 mg daily, Coreg 6.25 twice daily has been added. Please check blood pressure daily at home and maintain a blood pressure diary. For diabetes please take Lantus 45 units twice daily along with NovoLog as per insulin sliding scale premeals 3 times a day. For hypertriglyceridemia continue Creon, fenofibrate and atorvastatin has been added to your medication list. You will be on IV vancomycin twice daily for next 6 weeks. You will have to have labs drawn weekly starting 03/22. Please follow-up weekly for PICC line dressing changes. Please follow-up with ID clinic on April 20. Please follow-up with Dr. Momo Hsieh/family practice/your new PCP on 03/22 at 9:15 AM. After discussed in detail please make sure that you drink up to 2 to 3 L of fluid daily. Please try to avoid ibuprofen, dicyclomine going forward as they can be bad for your kidneys. Discharge Attestations Time Spent in Discharge Care*: greater than 30 min Specific Discharge Activities: educating patient, educating and/or supporting family/caregiver, discussing with pcp/other providers, discussing with showcase trimmer/social workers/dc planners, documenting/other paperwork and evaluating patient/reviewing data Status at Discharge: Cognitive status at discharge: cognitively intact, Behavioral status at discharge: cooperative, Functional status at discharge: independent ambulation, Overall status at discharge: patient is progressing back to baseline Quality Metrics Clinical Quality Measures [ No reported AMI, CVA or VTE this stay] Coding Level of Care Code 04070 Total time (in minutes) for Discharge: 60 Diagnoses MRSA (methicillin resistant Staphylococcus aureus) septicemia A41.02 Septic embolism I76 Familial hypertriglyceridemia E78.1 Diabetes E11.9 Hypokalemia E87.6 DKA (diabetic ketoacidosis) E11.10 Interstitial pneumonia J84.9 Hyponatremia E87.1 ADRY (acute kidney injury) N17.9 Multiple lung abscesses J85.2
[2023-03-18 11:38] LABS: Glucose Point of Care 195 mg/dL (70-110)
--- NOTE | 2023-03-18 13:19 | PC.NURSE ---
Discharge Note Patient discharged to [home] via [w/c to POV] accompanied by [spouse]. Discharge instructions reviewed with patient and/or life assurance representative. Mobile pharmacy medications and/or prescriptions provided. Belongings/home medications returned.
[2023-03-20 15:20] LABS: Histoplasma Antigen (Quant) NONE DETECTED; Histoplasma Antigen Interpreta NEGATIVE; Histoplasma Antigen Specimen SERUM
[2023-03-22 21:30] LABS: Fibrinogen Degradation Product 5 mcg/mL (LESS THAN 5)
== END 2023-03-18 13:18 | disposition home or self-care (01) | DRG 871 ==
LOC: ER 03-11 03:13 → ICU 03-11 07:25 → CSU 03-16 15:41
PROVIDERS: Internal Medicine; Nurse Practitioner Family; Student in an Organized Health Care Education/Training Program; Admitting Provider Internal Medicine; Emergency Provider Emergency Medicine; Visit Provider Student in an Organized Health Care Education/Training Program
DX: A41.02 Sepsis due to Methicillin resistant Staphylococcus aureus (principal); E11.10 Type 2 diabetes mellitus with ketoacidosis without coma; G93.41 Metabolic encephalopathy; I76 Septic arterial embolism; K86.1 Other chronic pancreatitis; J84.9 Interstitial pulmonary disease, unspecified; N17.9 Acute kidney failure, unspecified; Z68.42 Body mass index [BMI] 45.0-49.9, adult; E87.1 Hypo-osmolality and hyponatremia; R65.20 Severe sepsis without septic shock; E78.1 Pure hyperglyceridemia; Z11.52 Encounter for screening for COVID-19; Z79.4 Long term (current) use of insulin; F40.240 Claustrophobia; Z79.82 Long term (current) use of aspirin; M41.85 Other forms of scoliosis, thoracolumbar region; G89.29 Other chronic pain; F12.90 Cannabis use, unspecified, uncomplicated; D75.839 Thrombocytosis, unspecified; I10 Essential (primary) hypertension; E66.01 Morbid (severe) obesity due to excess calories; E83.42 Hypomagnesemia
CPT/HCPCS: 36415; 36416; 36573; 36592; 36600; 51702; 70450; 71045; 71260; 71275; 72129; 72132; 74177; 76882; 76942; 80048; 80053; 80061; 80202; 80306; 81001; 82010; 82607; 82746; 82803; 82962; 83036; 83540; 83550; 83605; 83721; 83735; 84100; 84145; 84443; 84478; 84703; 85007; 85025; 85362; 85378; 85384; 85610; 85730; 86403; 86480; 86705; 86706; 86709; 86803; 87040; 87070; 87075; 87077; 87086; 87150; 87186; 87205; 87340; 87385; 87449; 87486; 87581; 87633; 87641; 87806; 93306; 93312; 93320; 93325; 93970; 96365; 96366; 96367; 96372; 96375; 96376; 99291; 99292; C1751; C9113; J0131; J0456; J0696; J1630; J1644; J1815; J1940; J2020; J2185; J2250; J2270; J2405; J2704; J2765; J3010; J3370; J3475; J3480; J3490; J7030; J7050; P9046; Q9967

== ENCOUNTER 2023-04-03 11:04 | Inpatient (IN) | payer OTHER, SELFPAY ==
[2023-04-03] VITALS (16 sets, daily range): BP systolic 131–241; BP diastolic 64–132; PULSE 89–128; RESP 17–24; TEMP 36.6–37; O2SAT 91–100; BMI 50.8; BMI 44.8
--- NOTE | 2023-04-03 11:12 | XR_ITS ---
WS: [id number] PORTABLE CHEST HISTORY: dyspnea/cough COMPARISON: 03/16/2023 Increasing dense consolidation in the mid to lower LEFT lung obscuring the cardiac silhouette and als o the diaphragm. There is diffuse mild pulmonary edema with scattered opacifications. Suspect at leas t a component of a LEFT pleural effusion. Cardiac size: Obscured by the consolidation in the LEFT thorax. Mediastinum/Aorta: Normal mediastinum. 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 Prior CABG. IMPRESSION: 1. Increasing area of dense consolidation in the mid to lower LEFT lung obscuring the diaphragm. Susp ect at least a component of atelectasis and pleural fluid. Pneumonia is not excluded. This has progre ssed since 03/16/2023. 2. Pulmonary venous congestion and scattered opacifications. Scattered opacifications are probably du e to the fluid overload.
--- NOTE | 2023-04-03 11:25 | W.ED.SOB ---
HPI - SOB/Dyspnea General: Chief Complaint: Shortness of Breath/Dyspnea Stated Complaint: rash, sob, back pain Time Seen by Provider: 04/03/23 11:11 Source: patient and family (Spouse) Mode of arrival: ambulatory Limitations: no limitations History of Present Illness: HPI Narrative: Patient is a 37-year-old female with history of chronic pancreatitis, anemia, and diabetes who presents the emergency department complaining of shortness of breath onset 1 day. Patient was hospitalized 2 weeks ago for MRSA related sepsis, and has been taking Vanco through PICC line since. She denies any complications up until last night, which she notes a bilateral rash to her lower extremities as well as sudden onset of shortness of breath and back pain. The breathing difficulties began all of a sudden and has been intermittently getting worse. She denies any chest pain, abdominal pain, fevers, chills, weakness, or any other symptoms. She denies any blood in her stool. MD elicited complaint: shortness of breath Pertinent past history: diabetes and sepsis Onset (ago): day(s) Context: recent illness Timing: intermittent Severity: moderate Associated symptoms: Deny abdominal pain, chest pain, fever(s), nausea, palpitations or vomiting Review of Systems Const: Denies: fever(s), chills, fatigue or malaise Card: Denies: chest pain, palpitations or edema Resp: Reports: dyspnea; Denies: productive cough or non-productive cough GI: Denies: abdominal pain, nausea, vomiting, hematemesis, diarrhea, change in bowel habits or hematochezia : Denies: flank pain, dysuria, urinary frequency or urinary urgency Musc: Reports: back pain; Denies: neck pain Skin/Breast: Reports: rash; Denies: pruritus Neuro: Denies: headache(s) [place]/Lymph: Denies: easy bruising PFSH ED PFSH: Medical History Amputation toe Chronic back pain Chronic pancreatitis Decubitus ulcer debridement and removed Diabetes Familial hypertriglyceridemia History of amputation of toe x3 Hypomagnesemia Hyponatremia Hypoxia Morbid obesity with BMI of 45.0-49.9, adult Scoliosis Surgical History Hx of spinal surgery Family History Mother Cancer ovarian Father Cancer skin Other Aneurysm Autoimmune disease Bleeding disorder Chronic kidney disease (CKD) Dementia Diabetes Hyperlipidemia Hypertension Liver disease Stroke Denies family history of CAD (coronary artery disease) Psychiatric illness Lung disease Social History Smoking and tobacco/nicotine status: never used tobacco/nicotine Alcohol intake: never Substance/Drug Use: current Substance/Drug use frequency: few times a month Other substance/drug use details: SADIE jaffe Household members: spouse Marital status: Current occupational status: unemployed Physical Exam Const: COMMON NORMALS: no acute distress GENERAL APPEARANCE: cooperative and anxious NUTRITIONAL APPEARANCE: obese morbidly obese ORIENTATION/CONSCIOUSNESS: Yes awake, Yes oriented to person, Yes oriented to place and Yes oriented to time HENMT: COMMON NORMALS: normocephalic, atraumatic and hearing grossly normal bilaterally HEAD & SCALP: normocephalic and atraumatic Eye: COMMON NORMALS: Equal, round and reactive pupils present, EOMs intact bilaterally and conjunctivae normal CONJUNCTIVA: Yes conjunctivae normal PUPIL: Yes Equal, round and reactive pupils present Neck/C-Spine: COMMON NORMALS: full ROM and no JVD Lymph: LYMPHATIC: no lymphadenopathy noted Resp: COMMON NORMALS: No retractions, No use of accessory muscles and clear to auscultation bilaterally EFFORT & INSPECTION: Yes able to speak in complete sentences, Yes tachypneic and Yes respiratory distress AUSCULTATION: clear to auscultation bilaterally, no crackles, no rales, no rhonchi and no wheezes Cardio: COMMON NORMALS: no JVD, regular rhythm, S1 normal heart sound present, S2 normal heart sound present, No gallops present (Cardio), No clicks present (Cardio), No murmurs present (Cardio) and Peripheral pulses 2+ throughout RATE: tachycardic RHYTHM: regular rhythm HEART SOUNDS: S1 normal heart sound present and S2 normal heart sound present PERIPHERAL PULSES: Peripheral pulses 2+ throughout GI: COMMON NORMALS: Normal to inspection, nondistended, normoactive bowel sounds present, Soft to palpation and No hepatosplenomegaly present AUSCULTATION: Yes normoactive bowel sounds PALPATION: Yes Soft to palpation, No Tenderness to palpation present (GI), No Guarding due to palpation present (GI) and Yes No hepatosplenomegaly present Extremity: COMMON NORMALS: normal to inspection, capillary refill normal, no clubbing, cyanosis or edema, no calf tenderness and no pedal edema Neuro: SENSORIUM/ORIENTATION: Yes oriented to person, Yes oriented to place and Yes oriented to time Skin: RASHES: rashes noted (Erythematous maculopapular rash to the bilateral knees) Course Vital Signs: Vital signs: Vital Signs Temperature 97.8 F 04/03/23 11:14 Pulse Rate 104 H 04/03/23 14:50 Respiratory Rate 18 04/03/23 14:50 Blood Pressure 192/101 04/03/23 14:50 Pulse Oximetry 95 04/03/23 14:50 Oxygen Delivery Me thod Room Air 04/03/23 14:50 MDM - SOB/Dyspnea Medical Decision Making Patient reaction to the vancomycin she will need to continue on something she has a mild acute kidney injury and as elevated blood pressure she did respond well to hydralazine labetalol given its time new orders written blood pressure was tracking 140s and 150s it did improve, increased after that. She was given oral amlodipine. Discussed with hospitalist will admit to [facility]obs manage blood pressure adjust antibiotics and monitor for reaction to vancomycin. Hives she initially was noted to have have improved. Lab Data 04/03/23 11:44 04/03/23 11:44 Labs/Radiology: Laboratory Results WBC 11.93 10^3/uL (3.29-11.43) H 04/03/23 11:44 RBC 2.81 10^6/uL (3.85-5.65) L 04/03/23 11:44 Hgb 7.90 g/dL (11.27-16.99) L 04/03/23 11:44 Hct 25.4 % (36-47) L 04/03/23 11:44 MCV 90.4 fl (85-98) 04/03/23 11:44 MCH 28.1 pg (27-33) 04/03/23 11:44 MCHC 31.1 g/dL (30-55) 04/03/23 11:44 RDW 13.8 % (12.1-15.1) 04/03/23 11:44 Plt Count 353 10^3/cmm (157-399) 04/03/23 11:44 MPV 8.4 fL (7.4-10.4) 04/03/23 11:44 Neut % (Auto) 74.6 % 04/03/23 11:44 Lymph % (Auto) 17.9 % 04/03/23 11:44 [place] % (Auto) 4.2 % 04/03/23 11:44 Eos % (Auto) 1.8 % 04/03/23 11:44 Baso % (Auto) 0.7 % 04/03/23 11:44 Neut # (Auto) 8.91 10^3/uL (1.8-7.7) H 04/03/23 11:44 Lymph # (Auto) 2.1 10^3/uL (0.8-4.8) 04/03/23 11:44 [place] # (Auto) 0.5 10^3/uL (0.2-0.9) 04/03/23 11:44 Eos # (Auto) 0.2 10^3/uL (0.0-0.8) 04/03/23 11:44 Baso # (Auto) 0.1 10^3/uL (0.0-0.1) 04/03/23 11:44 Nucleated RBC % (auto) 0 % 04/03/23 11:44 Nucleated RBCs # 0.0 /100WBC 04/03/23 11:44 Sodium 143 mmol/L (136-145) 04/03/23 11:44 Potassium 3.6 mmol/L (3.5-5.1) 04/03/23 11:44 Chloride 109 mmol/L (98-107) H 04/03/23 11:44 Carbon Dioxide 21 mmol/L (22-29) L 04/03/23 11:44 Anion Gap 16.6 (5-19) 04/03/23 11:44 BUN 24 mg/dL (6-20) H 04/03/23 11:44 Creatinine 1.7 mg/dL (0.5-0.9) H 04/03/23 11:44 GFR Calculation 33.8 mL/min (90-130) L 04/03/23 11:44 Glucose 143 mg/dL (65-115) H 04/03/23 11:44 Calculated Osmolality 303 mOsm/kg (285-295) H 04/03/23 11:44 Lactic Acid 1.3 mmol/L (0.5-2.2) 04/03/23 11:44 Calcium 8.7 mg/dL (8.5-10.5) 04/03/23 11:44 Magnesium 1.7 mg/dL (1.7-2.3) 04/03/23 11:44 Total Bilirubin 0.2 mg/dL (0.15-1.2) 04/03/23 11:44 AST 26 U/L (0-32) 04/03/23 11:44 ALT 17 U/L (0-33) 04/03/23 11:44 Alkaline Phosphatase 100 U/L (35-105) 04/03/23 11:44 Total Protein 7.4 g/dL (6.6-8.7) 04/03/23 11:44 Albumin 2.9 g/dL (3.5-5.2) L 04/03/23 11:44 Globulin 4.5 g/dL (1.3-4.6) 04/03/23 11:44 Triglycerides 343 mg/dL (0-150) H 04/03/23 11:44 Lipase 43 U/L (13-60) 04/03/23 11:44 Urine Color Yellow (Yellow) 04/03/23 11:55 Urine Appearance Clear (CLEAR) 04/03/23 11:55 Urine pH 7 (5-7) 04/03/23 11:55 Ur Specific [place] 1.005 (1.005-1.030) 04/03/23 11:55 Urine Protein 3+ (Negative) H 04/03/23 11:55 Urine Glucose (UA) Norm (Normal) 04/03/23 11:55 Urine Ketones Negative (Negative) 04/03/23 11:55 Urine Blood 3+ (Negative) H 04/03/23 11:55 Urine Nitrate Negative (Negative) 04/03/23 11:55 Urine Bilirubin Neg (Negative) 04/03/23 11:55 Urine Urobilinogen Norm mg/dL (Negative) 04/03/23 11:55 Ur Leukocyte Esterase Trace (Negative) H 04/03/23 11:55 Urine RBC 5-10 /hpf (0-2) H 04/03/23 11:55 Urine WBC 5-10 /hpf (0-5) H 04/03/23 11:55 Ur Squamous Epith Cells 5-10 /hpf (0-5) H 04/03/23 11:55 Ur Transition Epith Cell Rare /hpf 04/03/23 11:55 Amorphous Sediment Not Reportable 04/03/23 11:55 Urine Bacteria Trace /hpf (NONE) 04/03/23 11:55 Hyaline Casts 0-4 /lpf H 04/03/23 11:55 Urine Mucus None /hpf 04/03/23 11:55 Serum Ketones Negative (Negative) 04/03/23 11:44 All radiology interpretation(s) finalized by discharge Discharge Plan Discharge Condition: Stable Prescriptions: No Action ondansetron 4 mg tablet,disintegrating 4 mg PO TID PRN (Reason: Nausea And Vomiting) Qty: 60 0RF furosemide [Lasix] 40 mg tablet 40 mg PO QAM 5 Days Qty: 5 0RF baclofen 20 mg tablet 20 mg PO BID 30 Days Qty: 60 1RF potassium chloride 10 mEq tablet extended release 10 meq PO DAILY oxycodone-acetaminophen 5-325 mg tablet 1 tab PO Q6H PRN (Reason: Pain) Multivitamins 28 mg iron- 800 mcg Tablet 1 tab PO QAM insulin glargine-yfgn 100 unit/mL solution 45 unit SUBCUT BID vancomycin 1.25 gram Recon Soln 1.25 g IV Q12H Rx Instructions: until 04/24/23 aspirin 325 mg Tablet 325 - 650 mg PO Q6H PRN (Reason: Pain) pantoprazole 40 mg tablet,delayed release (DR/EC) 40 mg PO DAILY insulin lispro [Humalog U-100 Insulin] 100 unit/mL solution See Rx Instructions .ROUTE .COMPLEX Rx Instructions: per carb ratio as needed as directed Creon 12,000-38,000 -60,000 unit capsule,delayed release(DR/EC) See Rx Instructions .ROUTE .COMPLEX Rx Instructions: 1 to 3 caps po with each meal and 1 cap po with snacks Delta-8 Thc Gummies 8 mg PO DAILY PRN (Reason: pancreatitis/back pain) atorvastatin 40 mg Tablet 40 mg PO BEDTIME Qty: 30 0RF carvedilol 6.25 mg Tablet 6.25 mg PO BID Qty: 60 0RF fenofibrate 120 mg tablet 120 mg PO DAILY Qty: 30 0RF amlodipine 5 mg tablet 10 mg PO DAILY 30 Days Qty: 60 0RF Referrals: Jg Cassidy MD [Primary Care Provider] - Coding Level of Care Code ED Registered Route Associate for Richieg Zuleika
[2023-04-03] MEDS: labetalol 5 mg/mL SDV 20mL 20 MG IVP (11:54)
[2023-04-03] MEDS: dexamethasone 10 mg/mL INJ IVP (11:54)
[2023-04-03] MEDS: diphenhydrAMINE 50 mg/mL SDV 1mL IVP (11:54)
[2023-04-03] MEDS: hyDRALAzine 20 mg/mL INJ 1 mL 10 MG IVP (11:54)
[2023-04-03 12:06] LABS: Basophils # 0.1 10^3/uL (0.0-0.1); Basophils % 0.7 %; Eosinophils # 0.2 10^3/uL (0.0-0.8); Eosinophils % 1.8 %; Hematocrit 25.4 % (36-47); Lymphocytes # 2.1 10^3/uL (0.8-4.8); Lymphocytes % 17.9 %; Mean Corpuscular HGB Conc 31.1 g/dL (30-55); Mean Corpuscular Hemoglobin 28.1 pg (27-33); Mean Corpuscular Volume 90.4 fl (85-98); Mean Platelet Volume 8.4 fL (7.4-10.4); Monocytes # 0.5 10^3/uL (0.2-0.9); Monocytes % 4.2 %; Neutrophils # 8.91 10^3/uL (1.8-7.7); Neutrophils % 74.6 %; Nucleated Red Blood Cells % 0 %; Platelet Count 353 10^3/cmm (157-399); Red Blood Count 2.81 10^6/uL (3.85-5.65); Red Cell Distribution Width 13.8 % (12.1-15.1); White Blood Count 11.93 10^3/uL (3.29-11.43)
[2023-04-03 12:24] LABS: Alanine Aminotransferase 17 U/L (0-33); Albumin Level 2.9 g/dL (3.5-5.2); Alkaline Phosphatase 100 U/L (35-105); Anion Gap 16.6 (5-19); Aspartate Amino Transferase 26 U/L (0-32); Blood Urea Nitrogen 24 mg/dL (6-20); Calcium 8.7 mg/dL (8.5-10.5); Carbon Dioxide 21 mmol/L (22-29); Chloride 109 mmol/L (98-107); Globulin 4.5 g/dL (1.3-4.6); Glomerular Filtration Rate 33.8 mL/min (90-130); Glucose 143 mg/dL (65-115); Lipase 43 U/L (13-60); Magnesium 1.7 mg/dL (1.7-2.3); Osmolality Calculated 303 mOsm/kg (285-295); Potassium 3.6 mmol/L (3.5-5.1); Sodium 143 mmol/L (136-145); Total Bilirubin 0.2 mg/dL (0.15-1.2); Total Protein 7.4 g/dL (6.6-8.7)
[2023-04-03 12:25] LABS: Lactic Sepsis W/Reflex 1.3 mmol/L (0.5-2.2)
[2023-04-03 12:26] LABS: Specific Gravity, Urine 1.005 (1.005-1.030); Urine Appearance Clear (CLEAR); Urine Color Yellow (Yellow); pH Urine 7 (5-7)
[2023-04-03 12:26] LABS: Ketone (Acetest) Serum Negative (Negative)
[2023-04-03 12:27] LABS: Add Urine Microscopic? YES; Bilirubin Urine Neg (Negative); Blood Urine 3+ (Negative); Glucose Urine UA Norm (Normal); Ketones Urine Negative (Negative); Leukocyte Esterase Urine Trace (Negative); Nitrate Urine Negative (Negative); Protein Urine 3+ (Negative); Urobilinogen Urine Norm (Negative)
[2023-04-03 12:32] LABS: Add Urine Culture? No; Bacteria Urine TRACE /hpf; Hyaline Casts Urine 0-4 /lpf; Transitional Epi Cells Urine RARE /hpf
--- NOTE | 2023-04-03 12:44 | PC.PHAR ---
Addendum entered by Shantal Rangel 04/03/23 13:00: looked back on discharge notes found where pts vancomycin was sent called [facility] [phone] to verify vancomycin directions Original Note: pt and pts verified pts medications-pt states she restarted taking kcl 10meq daily rx filled 12/27/22 100d/s-pt and pts states the pt is getting iv vancomycin at home as directed states not sure how much the pt is getting-
[2023-04-03] MEDS: albuterol 2.5 mg/3 mL Neb INHALATION (13:02)
[2023-04-03 15:13] LABS: Triglycerides 343 mg/dL (0-150)
[2023-04-03] MEDS: morphine 4 mg/mL SDV 1 mL IVP (15:55)
[2023-04-03] MEDS: amlodipine 10 mg Tablet PO (15:56)
--- NOTE | 2023-04-03 16:10 | P.HP_ITS ---
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 Thereafter she continued to have lower extremity rash, which was pruritic, she also reports that she has been feeling more short of breath, she does have 1+ pitting edema bilateral extremities, she did not take her blood pressure medication this morning but did take it last night, her systolic blood pressure is 220, her diastolic is 150, denies any headache, blurry vision, no nausea, no vomiting, she does report that after receiving the vancomycin, her pruritus has improved and the rash has improved, the rash is primarily on both bilateral lower extremities, she has some spots on her hands, some spots on her chest, currently on room air, no calf pain, no calf swelling, she has been feeling more short of breath, but no sudden onset of shortness of breath, no hemoptysis, Review of Systems Const: Denies: fever(s) Eyes: Denies: change in vision Card: Denies: chest pain Resp: Reports: dyspnea GI: Denies: abdominal pain : Denies: flank pain or difficulty voiding Musc: Denies: neck pain or back pain Skin/Breast: Denies: rash Neuro: Denies: headache(s) Medications/Allergies Home Medications Medication Instructions Recorded Confirmed Last Taken Type Delta-8 Thc Gummies 8 mg PO DAILY PRN 03/11/23 04/03/23 Unknown History pancreatitis/back pain aspirin 325 mg tablet 325 - 650 mg PO Q6H PRN Pain 03/11/23 04/03/23 Unknown History insulin lispro 100 unit/mL See Rx Instructions .Route .COMPLEX 03/11/23 04/03/23 Unknown History subcutaneous solution (Humalog U-100 Insulin) [id number] See Rx Instructions .Route .COMPLEX 03/11/23 04/03/23 Unknown History 12,000-38,000-60,000 unit capsule,delayed rel (Creon) pantoprazole 40 mg tablet,delayed 40 mg PO DAILY 03/11/23 04/03/23 Unknown History release amlodipine 5 mg tablet 10 mg PO DAILY 30 days #60 tabs 03/18/23 04/03/23 04/02/23 Rx 5 mg atorvastatin 40 mg tablet 40 mg PO BEDTIME #30 tabs 03/18/23 04/03/23 Unknown Rx carvedilol 6.25 mg tablet 6.25 mg PO BID #60 tabs 03/18/23 04/03/23 04/02/23 Rx fenofibrate 120 mg tablet 120 mg PO DAILY #30 tabs 03/18/23 04/03/23 Unknown Rx baclofen 20 mg tablet 20 mg PO BID 30 days #60 tabs 03/31/23 04/03/23 04/03/23 Rx furosemide 40 mg tablet (Lasix) 40 mg PO QAM 5 days #5 tabs 03/31/23 04/03/23 04/02/23 Rx ondansetron 4 mg disintegrating 4 mg PO TID PRN Nausea And 03/31/23 04/03/23 Unknown Rx tablet Vomiting #60 tabs insulin glargine-yfgn 100 unit/mL 45 unit SUBCUT BID 04/03/23 04/03/23 Unknown History subcutaneous solution oxycodone-acetaminophen 5 mg-325 1 tab PO Q6H PRN Pain 04/03/23 04/03/23 Unknown History mg tablet potassium chloride 10 mEq 10 meq PO DAILY 04/03/23 04/03/23 Unknown History tablet,extended release vit no.95-ferrous 1 tab PO QAM 04/03/23 04/03/23 04/03/23 History fumarate 28 mg-folic acid 800 mcg tablet ( Multivitamins) vancomycin 1.25 gram intravenous 1.25 g IV Q12H 04/03/23 04/03/23 04/02/23 History solution Allergies Allergy/AdvReac Type Severity Reaction Status Date / Time adhesive tape Allergy Severe ALGY-Rash Verified 03/31/23 08:38 amoxicillin Allergy ADR-Abdominal Verified 03/31/23 08:38 Pain piperacillin [From Zosyn] Allergy ALGY-Hives Verified 03/31/23 08:38 tazobactam [From Zosyn] Allergy ALGY-Hives Verified 03/31/23 08:38 PFSH Acute PFSH: Medical History Amputation toe Chronic back pain Chronic pancreatitis Decubitus ulcer debridement and removed Diabetes Familial hypertriglyceridemia History of amputation of toe x3 Hypomagnesemia Hyponatremia Hypoxia Morbid obesity with BMI of 45.0-49.9, adult Scoliosis Surgical History Hx of spinal surgery Family History Mother Cancer ovarian Father Cancer skin Other Aneurysm Autoimmune disease Bleeding disorder Chronic kidney disease (CKD) Dementia Diabetes Hyperlipidemia Hypertension Liver disease Stroke Denies family history of CAD (coronary artery disease) Psychiatric illness Lung disease Social History Smoking and tobacco/nicotine status: never used tobacco/nicotine Alcohol intake: never Substance/Drug Use: current Substance/Drug use frequency: few times a month Other substance/drug use details: SADIE rothmaluis Household members: spouse Marital status: Current occupational status: unemployed Vitals/I&O/Wt Last Vital Signs Temp 97.8 F 04/03/23 11:14 Pulse 104 H 04/03/23 14:50 Resp 18 04/03/23 15:55 BP 192/101 04/03/23 14:50 Pulse Ox 100 04/03/23 15:55 O2 Del Method Room Air 04/03/23 14:50 Weight last 48 hrs Weight 147.418 kg Physical Exam Const: COMMON NORMALS: no acute distress and patient oriented x3 HENMT: COMMON NORMALS: normocephalic HEAD & SCALP: normocephalic Eye: COMMON NORMALS: Equal, round and reactive pupils present Neck/C-Spine: COMMON NORMALS: no JVD Lymph: LYMPHATIC: no lymphadenopathy noted Resp: COMMON NORMALS: normal respiratory effort, No retractions, No use of accessory muscles and clear to auscultation bilaterally AUSCULTATION: clear to auscultation bilaterally Cardio: COMMON NORMALS: regular rate, regular rhythm, S1 normal heart sound present and S2 normal heart sound present RATE: regular rate RHYTHM: regular rhythm HEART SOUNDS: S1 normal heart sound present and S2 normal heart sound present GI: COMMON NORMALS: Normal to inspection, nondistended, normoactive bowel sounds present, Soft to palpation and non-tender Extremity: NARRATIVE EXTREMITY EXAM: 1+ pitting edema bilateral extremity Neuro: COMMON NORMALS: patient oriented x3, CN's II-XII intact bilaterally, moves all extremities and no focal motor deficits Psych: COMMON NORMALS: mental status grossly normal Skin: NARRATIVE SKIN EXAM: Rash, bilateral extremities, more prominent on bilateral thighs, macular rash, no wheals or hives that I could discern, not blanching, irregular borders, erythematous, Data 04/03/23 11:44 04/03/23 11:44 Micro: Microbiology 04/03/23 11:46 Blood Culture - Preliminary Blood SPECIMEN COLLECTED 04/03/23 11:44 Blood Culture - Preliminary Blood SPECIMEN COLLECTED A&P Assessment and plan (1) Lower extremity edema: (2) Chronic pancreatitis: (3) GERD (gastroesophageal reflux disease): (4) Essential hypertension: (5) Anemia: (6) Morbid obesity with BMI of 45.0-49.9, adult: (7) Chronic back pain: Qualifiers: Back pain location: thoracic back pain Back pain laterality: bilateral Qualified Code(s): M54.6 - Pain in thoracic spine; G89.29 - Other chronic pain (8) Multiple lung abscesses: (9) Septic embolism: (10) MRSA (methicillin resistant Staphylococcus aureus) septicemia: (11) Familial hypertriglyceridemia: (12) Diabetes: Qualifiers: Diabetes mellitus type: type 2 Diabetes 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 We will continue to monitor blood pressures closely ?, Systolic over 220 diastolic over 150, ? We will start her on a Cardene drip ? Goal gradually lower blood pressure to 160/90, ? Continue p.o. blood pressure medications ? Monitor cardiac stepdown unit, ? Full code, ? Lovenox for DVT prophylaxis, ADRY, creatinine 1.7, will check a random vancomycin level Avoid IV fluids due to risk of fluid overload, monitor creatinine, Vancomycin adverse reaction, possible erythroderma ? Discontinue vancomycin for now, ? Prednisone 40 mg p.o. daily, ? Benadryl as needed for pruritus, MRSA bacteremia, with septic emboli, with multiple lung abscesses ? Currently PICC line in place, will switch to IV Zyvox, ? We will have to discuss with infectious disease about switching to daptomycin on discharge, ? Shortness of breath, ? Troponin series, ? Bnp ? Does look fluid overloaded, will hold off on Lasix as creatinine is elevated, ? CT of the chest ? Venous ultrasound Morbid obesity, Familial hypertriglyceridemia, triglycerides in the 300s, Type 2 diabetes mellitus, Lantus 40 units twice daily, with moderate dose sliding scale Attestations Medical Necessity Statement*: Patient requires hospitalization, inpatient, greater than 2 midnights, for hypertensive urgency, ADRY, vancomycin erythroderma, and High MDM includes number and complexity of problems actively addressed during encounter, amount and/or complexity of data reviewed/ordered and described risk of complication, morbidity or mortality of management as documented Diagnoses Lower extremity edema R60.0 Chronic pancreatitis K86.1 GERD (gastroesophageal reflux disease) K21.9 Essential hypertension I10 Anemia D64.9 Morbid obesity with BMI of 45.0-49.9, adult E66.01; Z68.42 Chronic back pain M54.6; G89.29 Back pain location: thoracic back pain Back pain laterality: bilateral Multiple lung abscesses J85.2 Septic embolism I76 MRSA (methicillin resistant Staphylococcus aureus) septicemia A41.02 Familial hypertriglyceridemia E78.1 Diabetes E11.9 Diabetes mellitus type: type 2 Diabetes mellitus 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
--- NOTE | 2023-04-03 16:16 | USR_ITS ---
PROCEDURE INFORMATION: Exam: US Duplex Lower Extremity Veins, Bilateral Exam date and time: 04/03/2023 5:00 PM Age: 37 years old Clinical indication: Swelling (edema) of limb; Lower extremity, bilateral TECHNIQUE: Imaging protocol: Real-time duplex ultrasound of the bilateral extremities with 2-D teague scale, color Doppler flow and spectral waveform analysis including responses to compression and other maneuvers (when performed) with image documentation. Complete exam focused on the lower extremity veins. COMPARISON: US CV venous duplex [facility] [id number] 03/13/2023 4:20 PM FINDINGS: Right deep veins: Unremarkable. The common femoral, femoral, proximal profunda femoral and popliteal veins are patent without thrombus. Normal Doppler waveforms. Normal compressibility and/or augmentation response. Left deep veins: Unremarkable. The common femoral, femoral, proximal profunda femoral and popliteal veins are patent without thrombus. Normal Doppler waveforms. Normal compressibility and/or augmentation response. Superficial veins: Bilateral saphenofemoral junctions are patent without thrombus. Soft tissues: Unremarkable. US/CV venous duplex [facility] [id number] IMPRESSION: No evidence of deep vein thrombosis.
--- NOTE | 2023-04-03 16:21 | ECG_ITS ---
[facility] Test Date: 2023-04-03 Pat Name: Michelle Morales Department: Room: Gender: Female Md Pediatric Allergist: : 1985 Requested By: Aguila Jaquez Order Number: [id number] Yenny MD: Alejandro Young M.D. Measurements Intervals [place] Rate: 106 P: 38 DC: 139 QRS: 29 QRSD: 83 T: 73 QT: 331 QTc: 441 Interpretive Statements SINUS TACHYCARDIA ABNORMAL RHYTHM ECG No previous ECG available for comparison Electronically Signed On 04-03-2023 19:06:11 MAINTENANCE HELPER by Alejandro Young M.D. [email or web address]
--- NOTE | 2023-04-03 16:27 | CTR_ITS ---
PROCEDURE INFORMATION: Exam: CT Chest Without Contrast; Diagnostic Exam date and time: 04/03/2023 4:48 PM Age: 37 years old Clinical indication: Shortness of breath; Prior surgery; Surgery date: 6+ months; Surgery type: Spine fusion, picc line; Additional info: SOB TECHNIQUE: Imaging protocol: Diagnostic computed tomography of the chest without contrast. Radiation optimization: All CT scans at this facility use at least one of these dose optimization techniques: automated exposure control; mA and/or kV adjustment per patient size (includes targeted exams where dose is matched to clinical indication); or iterative reconstruction. REPORTING DATA: Count of CT and Cardiac NM exams in prior 12 months: This patient has received 6 known CTs and 0 known cardiac nuclear medicine studies in the 12 months prior to the current study. COMPARISON: CT chest w con* [id number] 03/17/2023 10:48 AM RADIATION DOSE METRICS: Total DLP (mGy-cm): 712.04 FINDINGS: Tubes, catheters and devices: Left PICC line noted terminating in the region of the left brachiocephalic vein. Lungs: Redemonstrated numerous focal peripheral consolidations some which demonstrate cavitation. The ground-glass opacities predominantly in the right upper lobe have resolved. Reticular opacities noted within the right lung base. Atelectasis of the left lung base noted. Pleural spaces: Moderate volume left pleural effusion noted. No pneumothorax. Heart: No coronary artery calcifications. No cardiomegaly. No pericardial effusion. Lymph nodes: Mildly prominent mediastinal lymph nodes, likely reactive. Vasculature: Unremarkable. No aortic aneurysm. Bones/joints: [id number] dextroscoliosis of the thoracic spine with Alarcon rods noted. No acute fracture. Soft tissues: Unremarkable. CT/CT chest con [id number] IMPRESSION: 1. Redemonstrated numerous focal peripheral consolidations some of which demonstrate cavitation. This is suggestive of atypical fungal or bacterial pneumonia/abscesses versus septic emboli. 2. There is a moderate volume left pleural effusion.
[2023-04-03 16:38] LABS: Vancomycin Random 28.7 ug/mL (20.0-40.0)
[2023-04-03 16:59] LABS: INR 1.12 (0.8-1.2)
[2023-04-03 17:06] LABS: Procalcitonin 0.05 ng/mL (0-0.5)
[2023-04-03 17:11] LABS: Erythrocyte Sedimentation Rate 36 mm/hr (0-15)
[2023-04-03 17:17] LABS: C Reactive Protein 27.8 mg/L (0.0-4.9)
[2023-04-03 18:05] LABS: Troponin(5th) Baseline 35 ng/L (0-10)
[2023-04-03 18:12] LABS: NT Pro B Type Natriuretic Pept 2470 pg/mL (0-125)
[2023-04-03 18:22] LABS: D Dimer 19.24 ug/mLFEU (0-0.59)
[2023-04-03] MEDS: oxyCODONE-APAP 5-325 mg Tablet 1 TAB PO (20:01)
[2023-04-03] MEDS: carvedilol 6.25 mg Tablet PO (20:01)
[2023-04-03] MEDS: enoxaparin 40 mg/0.4 mL Syringe SUBCUT (20:02)
[2023-04-03 20:17] LABS: Glucose Point of Care 124 mg/dL (70-110)
[2023-04-03 20:27] LABS: Troponin 5 2HR 33.13 ng/L (0-10)
[2023-04-03 20:31] LABS: Troponin 5 2HR Delta -1.87 ABS# (0-10)
[2023-04-03 20:34] LABS: Cholesterol 200 mg/dL (0-200); HDL Cholesterol 40 mg/dL (60-100); LDL Cholesterol Calculated 111 mg/dL (50-129); LDL HDL Ratio 2.78 RATIO (0.00-3.22); Thyroid Stimulating Hormone 0.65 uIU/mL (0.27-4.20); Triglycerides 244 mg/dL (0-150)
[2023-04-03 20:47] LABS: Estmated Average Glucose 237; Hemoglobin A1C 9.9 % (4.0-6.0)
--- NOTE | 2023-04-03 22:00 | PC.NURSE ---
Patient received from [facility] via wheelchair. V/S stable, no acute distress noted. Reports mild shortness of breath. Raised red rash to bilat legs concentrated on thighs and bilat arms noted. Patient and reports that it started after her dose of vancomyacin this morning. Patient has been on vancomyacin for approx 3 weeks for MRSA pneumonia.
[2023-04-03] MEDS: diphenhydrAMINE 50 mg/mL SDV 1mL 25 MG IVP (22:11)
[2023-04-03] MEDS: atorvastatin 40 mg Tablet PO (22:11)
[2023-04-03] MEDS: baclofen 10 mg Tablet 20 MG PO (22:11)
[2023-04-03] MEDS: linezolid premix 600 MG/300 ML PREMIX 300 MG IV (22:12)
[2023-04-03 22:56] LABS: Troponin 5 6HR 34.65 ng/L (0-10)
[2023-04-03 22:57] LABS: Troponin 5 6HR Delta -0.35 ng/L (0-12)
[2023-04-04] VITALS (30 sets, daily range): BP systolic 116–198; BP diastolic 65–127; PULSE 79–97; RESP 14–35; TEMP 36.6–37; O2SAT 90–98
--- NOTE | 2023-04-04 01:43 | PC.NURSE ---
patient was admitted to [facility] floor at 1900. BP was 224/64 before transfer to [facility] and 164/116 when she got to room 102. Patient was transfered to ICU room 5 for cardene drip that was ordered.
[2023-04-04] MEDS: FUROsemide 40 mg Tablet PO (05:23)
[2023-04-04 05:53] LABS: Basophils % 0.2 %; Eosinophils % 0.3 %; Hematocrit 23.2 % (36-47); Lymphocytes # 1.8 10^3/uL (0.8-4.8); Lymphocytes % 17.3 %; Mean Corpuscular HGB Conc 30.2 g/dL (30-55); Mean Corpuscular Hemoglobin 27.3 pg (27-33); Mean Corpuscular Volume 90.6 fl (85-98); Mean Platelet Volume 8.6 fL (7.4-10.4); Monocytes # 0.5 10^3/uL (0.2-0.9); Monocytes % 4.3 %; Neutrophils # 8.05 10^3/uL (1.8-7.7); Neutrophils % 77.3 %; Nucleated Red Blood Cells % 0 %; Platelet Count 329 10^3/cmm (157-399); Red Blood Count 2.56 10^6/uL (3.85-5.65); Red Cell Distribution Width 13.9 % (12.1-15.1); White Blood Count 10.41 10^3/uL (3.29-11.43)
[2023-04-04 06:37] LABS: Alanine Aminotransferase 16 U/L (0-33); Albumin Level 2.9 g/dL (3.5-5.2); Alkaline Phosphatase 98 U/L (35-105); Anion Gap 18.9 (5-19); Aspartate Amino Transferase 20 U/L (0-32); Blood Urea Nitrogen 23 mg/dL (6-20); Calcium 8.3 mg/dL (8.5-10.5); Carbon Dioxide 18 mmol/L (22-29); Chloride 108 mmol/L (98-107); Globulin 3.7 g/dL (1.3-4.6); Glomerular Filtration Rate 33.8 mL/min (90-130); Glucose 73 mg/dL (65-115); Magnesium 1.8 mg/dL (1.7-2.3); Osmolality Calculated 294 mOsm/kg (285-295); Phosphorus 3.9 mg/dL (2.5-4.5); Potassium 3.9 mmol/L (3.5-5.1); Sodium 141 mmol/L (136-145); Total Bilirubin 0.3 mg/dL (0.15-1.2); Total Protein 6.6 g/dL (6.6-8.7)
[2023-04-04 07:28] LABS: Glucose Point of Care 85 mg/dL (70-110)
[2023-04-04 08:46] LABS: Ferritin 210 ng/mL (15-150); Iron 28 ug/dL (37-145)
[2023-04-04] MEDS: potassium chloride ER 10 mEq Tablet PO (08:53)
[2023-04-04] MEDS: insulin glargine 100 units/1 mL 40 UNIT SUBCUT ×2 (08:53→20:01)
[2023-04-04] MEDS: lipase-protease-amylase Capsule PO ×3 (08:53→18:01)
[2023-04-04] MEDS: amlodipine 5 mg Tablet 10 MG PO (08:53)
[2023-04-04] MEDS: carvedilol 6.25 mg Tablet PO ×2 (08:53→18:01)
[2023-04-04] MEDS: predniSONE 20 mg Tablet 40 MG PO (08:53)
[2023-04-04] MEDS: pantoprazole DR 40 mg Tablet PO (08:53)
[2023-04-04] MEDS: iron sucrose 200 MG in sodium chloride 0.9% (100 ml) 100 ML 220 MG IV (09:38)
[2023-04-04] MEDS: linezolid premix 600 MG/300 ML PREMIX 300 MG IV ×2 (10:48→22:00)
[2023-04-04 11:11] LABS: Glucose Point of Care 118 mg/dL (70-110)
[2023-04-04 12:23] LABS: Glucose Point of Care 120 mg/dL (70-110)
[2023-04-04] MEDS: ipratropium-albuterol 3 mL Neb INHALATION ×2 (13:18→19:49)
--- NOTE | 2023-04-04 14:34 | P.PN_ITS ---
Subjective Subjective: Patient was seen this morning, no fevers, no chills, no cough remains hypertensive, no lightheadedness, dizziness, no nausea, no vomiting, no headache, blurry vision, her rash is improving, denies it being pruritic Vitals/I&O/Wt Last Vital Signs Temp 97.9 F 04/04/23 12:34 Pulse 92 04/04/23 14:00 Resp 18 04/04/23 14:00 BP 155/85 04/04/23 14:00 Pulse Ox 92 04/04/23 14:00 O2 Del Method Room Air 04/04/23 13:20 O2 Flow Rate 2 04/04/23 04:00 04/03/23 04/04/23 04/04/23 22:59 06:59 14:59 Intake Total 550 / 550 890 / 890 Output Total 200 / 200 Balance 350 / 350 890 / 890 Weight last 48 hrs Weight 129.727 kg Weight 147.418 kg Physical Exam Const: COMMON NORMALS: no acute distress and patient oriented x3 Resp: COMMON NORMALS: normal respiratory effort, No retractions, No use of accessory muscles and clear to auscultation bilaterally AUSCULTATION: clear to auscultation bilaterally Cardio: COMMON NORMALS: regular rate, regular rhythm, S1 normal heart sound present and S2 normal heart sound present RATE: regular rate RHYTHM: regul ar rhythm HEART SOUNDS: S1 normal heart sound present and S2 normal heart sound present GI: COMMON NORMALS: Normal to inspection, nondistended, normoactive bowel sounds present and non-tender Extremity: COMMON NORMALS: no pedal edema Neuro: COMMON NORMALS: patient oriented x3 Psych: COMMON NORMALS: mental status grossly normal Data 04/04/23 04:55 04/04/23 04:55 Micro: Microbiology 04/03/23 11:46 Blood Culture - Preliminary Blood NEGATIVE TO DATE 04/03/23 11:44 Blood Culture - Preliminary Blood NEGATIVE TO DATE A&P Assessment and plan (1) Lower extremity edema: (2) Chronic pancreatitis: (3) GERD (gastroesophageal reflux disease): (4) Essential hypertension: (5) Anemia: (6) Morbid obesity with BMI of 45.0-49.9, adult: (7) Chronic back pain: Qualifiers: Back pain location: thoracic back pain Back pain laterality: bilateral Qualified Code(s): M54.6 - Pain in thoracic spine; G89.29 - Other chronic pain (8) Multiple lung abscesses: (9) Septic embolism: (10) MRSA (methicillin resistant Staphylococcus aureus) septicemia: (11) Familial hypertriglyceridemia: (12) Diabetes: Qualifiers: Diabetes mellitus type: type 2 Diabetes mellitus adult parole officer insulin use: with usp use Diabetes mellitus complication status: with ketoacidosis (13) ADRY (acute kidney injury): (14) Rash: (15) Hypertensive urgency: (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 We will continue to monitor blood pressures closely ? Currently systolic 155 diastolic 85 ? Start home p.o. blood pressure medications add hydralazine ? Continue p.o. blood pressure medications ? Monitor cardiac stepdown unit, ? Full code, ? Lovenox for DVT prophylaxis, ADRY, creatinine 1.7, will check a random vancomycin level Avoid IV fluids due to risk of fluid overload, monitor creatinine, Vancomycin adverse reaction, possible erythroderma ? Discontinue vancomycin for now, ? Prednisone 40 mg p.o. daily, ? Benadryl as needed for pruritus, MRSA bacteremia, with septic emboli, with multiple lung abscesses ? Currently PICC line in place, will switch to IV Zyvox, ? We will have to discuss with infectious disease about switching to daptomycin on discharge, Shortness of breath, resolving ? Troponin series, ? Bnp 2470 ? Does look fluid overloaded, will hold off on Lasix as creatinine is elevated, ? CT of the chest CT/CT chest wo con [id number] IMPRESSION: 1. ? Redemonstrated numerous focal peripheral consolidations some of which demonstrate cavitation. This is suggestive of atypical fungal or bacterial pneumonia/abscesses versus septic emboli. 2. ? There is a moderate volume left pleural effusion. ? Venous ultrasound Morbid obesity, Familial hypertriglyceridemia, triglycerides in the 300s, Type 2 diabetes mellitus, Lantus 40 units twice daily, with moderate dose sl iding scale Attestations Medical Necessity Statement*: Patient requires hospitalization for hypertensive urgency, ADRY, MRSA bacteremia, ADRY, likely had adverse reaction Diagnoses Lower extremity edema R60.0 Chronic pancreatitis K86.1 GERD (gastroesophageal reflux disease) K21.9 Essential hypertension I10 Anemia D64.9 Morbid obesity with BMI of 45.0-49.9, adult E66.01; Z68.42 Chronic back pain M54.6; G89.29 Back pain location: thoracic back pain Back pain laterality: bilateral Multiple lung abscesses J85.2 Septic embolism I76 MRSA (methicillin resistant Staphylococcus aureus) septicemia A41.02 Familial hypertriglyceridemia E78.1 Diabetes E11.9 Diabetes mellitus type: type 2 Diabetes mellitus adult parole officer insulin use: with usp use Diabetes mellitus complication status: with ketoacidosis ADRY (acute kidney injury) N17.9 Rash R21 Hypertensive urgency I16.0 Vancomycin-induced erythroderma L27.0; T36.8X5A
[2023-04-04] MEDS: oxyCODONE-APAP 5-325 mg Tablet 1 TAB PO (15:18)
[2023-04-04] MEDS: hyDRALAzine 10 mg Tablet PO ×2 (15:18→22:00)
[2023-04-04] MEDS: insulin lispro 100 unit/1 mL SUBCUT (18:01)
[2023-04-04 18:09] LABS: Glucose Point of Care 206 mg/dL (70-110)
[2023-04-04] MEDS: enoxaparin 40 mg/0.4 mL Syringe SUBCUT (20:01)
[2023-04-04 20:03] LABS: Glucose Point of Care 255 mg/dL (70-110)
[2023-04-04] MEDS: atorvastatin 40 mg Tablet PO (21:11)
[2023-04-05] VITALS (18 sets, daily range): BP systolic 144–196; BP diastolic 82–137; PULSE 60–99; RESP 16–24; TEMP 36.4–36.9; O2SAT 93–97
[2023-04-05] MEDS: diphenhydrAMINE 50 mg/mL SDV 1mL 25 MG IVP (00:56)
--- NOTE | 2023-04-05 01:02 | PC.NURSE ---
Patient very tearful and anxious in room. States I am scared I am going to and not be able to see Nba again. Sat in room with patient until calm and relaxed. Benadryl 25mg given IV for warm and itchy feeling to legs.
[2023-04-05] MEDS: ipratropium-albuterol 3 mL Neb INHALATION ×2 (01:30→21:58)
[2023-04-05] MEDS: baclofen 10 mg Tablet 20 MG PO (04:09)
[2023-04-05 05:11] LABS: Glucose Point of Care 74 mg/dL (70-110)
[2023-04-05 05:33] LABS: Basophils % 0.2 %; Eosinophils # 0.1 10^3/uL (0.0-0.8); Eosinophils % 0.5 %; Hematocrit 26.3 % (36-47); Lymphocytes # 2.3 10^3/uL (0.8-4.8); Lymphocytes % 21.7 %; Mean Corpuscular HGB Conc 30.8 g/dL (30-55); Mean Corpuscular Hemoglobin 27.1 pg (27-33); Mean Platelet Volume 8.4 fL (7.4-10.4); Monocytes # 0.6 10^3/uL (0.2-0.9); Monocytes % 5.9 %; Neutrophils # 7.59 10^3/uL (1.8-7.7); Neutrophils % 71.1 %; Nucleated Red Blood Cells % 0 %; Platelet Count 363 10^3/cmm (157-399); Red Blood Count 2.99 10^6/uL (3.85-5.65); Red Cell Distribution Width 15.5 % (12.1-15.1); White Blood Count 10.67 10^3/uL (3.29-11.43)
--- NOTE | 2023-04-05 05:37 | PC.NURSE ---
Patient called out and reports that she feels like her blood sugar is dropping. Blood glucose 81. Grape juice given. Blood glucose increased to 98 in approx 30 min.
[2023-04-05 05:55] LABS: Alanine Aminotransferase 16 U/L (0-33); Albumin Level 2.8 g/dL (3.5-5.2); Alkaline Phosphatase 94 U/L (35-105); Anion Gap 16.6 (5-19); Aspartate Amino Transferase 14 U/L (0-32); Blood Urea Nitrogen 22 mg/dL (6-20); Calcium 8.7 mg/dL (8.5-10.5); Carbon Dioxide 21 mmol/L (22-29); Chloride 104 mmol/L (98-107); Globulin 4.4 g/dL (1.3-4.6); Glomerular Filtration Rate 36.3 mL/min (90-130); Glucose 66 mg/dL (65-115); Magnesium 1.9 mg/dL (1.7-2.3); Osmolality Calculated 288 mOsm/kg (285-295); Phosphorus 3.7 mg/dL (2.5-4.5); Potassium 3.6 mmol/L (3.5-5.1); Sodium 138 mmol/L (136-145); Total Bilirubin 0.3 mg/dL (0.15-1.2); Total Protein 7.2 g/dL (6.6-8.7)
[2023-04-05] MEDS: hyDRALAzine 10 mg Tablet PO (06:06)
[2023-04-05 07:35] LABS: Glucose Point of Care 88 mg/dL (70-110)
[2023-04-05] MEDS: insulin glargine 100 units/1 mL 40 UNIT SUBCUT ×2 (08:16→20:37)
[2023-04-05] MEDS: potassium chloride ER 10 mEq Tablet PO (08:16)
[2023-04-05] MEDS: pantoprazole DR 40 mg Tablet PO (08:16)
[2023-04-05] MEDS: lipase-protease-amylase Capsule PO ×3 (08:17→17:52)
[2023-04-05] MEDS: amlodipine 5 mg Tablet 10 MG PO (08:17)
[2023-04-05] MEDS: carvedilol 6.25 mg Tablet PO ×2 (08:17→17:51)
[2023-04-05] MEDS: predniSONE 20 mg Tablet 40 MG PO (08:17)
[2023-04-05] MEDS: linezolid premix 600 MG/300 ML PREMIX 300 MG IV ×2 (11:02→22:10)
[2023-04-05] MEDS: cloNIDine 0.1 mg Tablet PO ×2 (11:02→22:09)
[2023-04-05 11:24] LABS: Glucose Point of Care 155 mg/dL (70-110)
[2023-04-05] MEDS: insulin lispro 100 unit/1 mL SUBCUT (11:45)
--- NOTE | 2023-04-05 12:31 | P.PN_ITS ---
Subjective Subjective: Patient was seen this morning, she tells me that yesterday she was very anxious, she has been having a lot of episodes of anxiety, she is wondering if she can speak to a psychiatrist, will consult psychiatry, she denies any suicidal ideation, no homicidal ideation, denies seeing or hearing things are not there, her blood pressures remain elevated discussed adding on blood pressure medications, to control her blood pressure, her rash is improving, no more pruritus, will move out of ICU today, I spoke to infectious disease, it is reasonable to keep her off vancomycin due to 2 concerns for allergic reaction, daptomycin unfortunate does not penetrate the lungs, so the option would be p.o. vancomycin on discharge, she is agreeable we can likely take a PICC line on discharge Vitals/I&O/Wt Last Vital Signs Temp 97.8 F 04/05/23 08:29 Pulse 88 04/05/23 08:00 Resp 23 H 04/05/23 06:00 BP 174/109 04/05/23 06:00 Pulse Ox 96 04/05/23 06:00 O2 Del Method Room Air 04/05/23 04:00 O2 Flow Rate 2 04/04/23 04:00 04/04/23 04/05/23 04/05/23 22:59 06:59 14:59 Intake Total 810 / 1700 800 / 2500 240 / 240 Balance 810 / 1700 800 / 2500 240 / 240 Weight last 48 hrs Weight 129.365 kg Weight 129.727 kg Physical Exam Const: COMMON NORMALS: no acute distress and patient oriented x3 Resp: COMMON NORMALS: normal respiratory effort, No retractions, No use of accessory muscles and clear to auscultation bilaterally AUSCULTATION: clear to auscultation bilaterally Cardio: COMMON NORMALS: regular rate, regular rhythm, S1 normal heart sound present and S2 normal heart sound present RATE: regular rate RHYTHM: regular rhythm HEART SOUNDS: S1 normal heart sound present and S2 normal heart sound present GI: COMMON NORMALS: Normal to inspection, nondistended, normoactive bowel sounds present and non-tender Extremity: COMMON NORMALS: no pedal edema Neuro: COMMON NORMALS: patient oriented x3 Psych: COMMON NORMALS: mental status grossly normal Data 04/05/23 04:20 04/05/23 04:20 Micro: Microbiology 04/03/23 11:46 Blood Culture - Preliminary Blood NEGATIVE TO DATE 04/03/23 11:44 Blood Culture - Preliminary Blood NEGATIVE TO DATE A&P Assessment and plan (1) Lower extremity edema: (2) Chronic pancreatitis: (3) GERD (gastroesophageal reflux disease): (4) Essential hypertension: (5) Anemia: (6) Morbid obesity with BMI of 45.0-49.9, adult: (7) Chronic back pain: Qualifiers: Back pain location: thoracic back pain Back pain laterality: bilateral Qualified Code(s): M54.6 - Pain in thoracic spine; G89.29 - Other chronic pain (8) Multiple lung abscesses: (9) Septic embolism: (10) MRSA (methicillin resistant Staphylococcus aureus) septicemia: (11) Familial hypertriglyceridemia: (12) Diabetes: Qualifiers: Diabetes mellitus type: type 2 Diabetes mellitus assisted insulin use: with assisted use Diabetes mellitus complication status: with ketoacidosis (13) ADRY (acute kidney injury): (14) Rash: (15) Hypertensive urgency: (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 We will continue to monitor blood pressures closely ? Remains hypertensive ? Start home p.o. blood pressure medications, increase dose of hydralazine, add on clonidine ? Continue p.o. blood pressure medications ? Monitor cardiac stepdown unit, ? Full code, ? Lovenox for DVT prophylaxis, ADRY, creatinine 1.7, will check a random vancomycin level 28.7 Avoid IV fluids due to risk of fluid overload, monitor creatinine, Vancomycin adverse reaction, possible erythroderma ? Discontinue vancomycin for now, ? Prednisone 40 mg p.o. daily, ? Benadryl as needed for pruritus, MRSA bacteremia, with septic emboli, with multiple lung abscesses ? Currently PICC line in place, will switch to IV Zyvox, can switch to p.o. Zyvox on discharge Shortness of breath, resolving ? Troponin series, ? Bnp 2470 ? Does look fluid overloaded, will hold off on Lasix as creatinine is elevated, ? CT of the chest CT/CT chest wo con [id number] IMPRESSION: 1. ? Redemonstrated numerous focal peripheral consolidations some of which demonstrate cavitation. This is suggestive of atypical fungal or bacterial pneumonia/abscesses versus septic emboli. 2. ? There is a moderate volume left pleural effusion. ? Venous ultrasound Morbid obesity, Familial hypertriglyceridemia, triglycerides in the 300s, Type 2 diabetes mellitus, Lantus 40 units twice daily, with moderate dose sliding scale Anxiety, consult psychiatry Attestations Medical Necessity Statement*: Patient requires hospitalization for ADRY, vancomycin erythroderma, hypertension, moved to general medical floors, consult psychiatry, blood pressure control Diagnoses Lower extremity edema R60.0 Chronic pancreatitis K86.1 GERD (gastroesophageal reflux disease) K21.9 Essential hypertension I10 Anemia D64.9 Morbid obesity with BMI of 45.0-49.9, adult E66.01; Z68.42 Chronic back pain M54.6; G89.29 Back pain location: thoracic back pain Back pain laterality: bilateral Multiple lung abscesses J85.2 Septic embolism I76 MRSA (methicillin resistant Staphylococcus aureus) septicemia A41.02 Familial hypertriglyceridemia E78.1 Diabetes E11.9 Diabetes mellitus type: type 2 Diabetes mellitus middle or intermediate school principal insulin use: with middle or intermediate school principal use Diabetes mellitus complication status: with ketoacidosis ADRY (acute kidney injury) N17.9 Rash R21 Hypertensive urgency I16.0 Vancomycin-induced erythroderma L27.0; T36.8X5A
[2023-04-05] MEDS: hyDRALAzine 25 mg Tablet PO ×2 (15:25→23:17)
[2023-04-05 16:26] LABS: Glucose Point of Care 51 mg/dL (70-110)
[2023-04-05 17:32] LABS: Glucose Point of Care 117 mg/dL (70-110)
[2023-04-05] MEDS: enoxaparin 40 mg/0.4 mL Syringe SUBCUT (17:51)
[2023-04-05] MEDS: atorvastatin 40 mg Tablet PO (20:37)
[2023-04-05 20:46] LABS: Glucose Point of Care 143 mg/dL (70-110)
[2023-04-05] MEDS: oxyCODONE-APAP 5-325 mg Tablet 1 TAB PO (21:22)
[2023-04-06] VITALS (9 sets, daily range): BP systolic 146–192; BP diastolic 80–94; PULSE 71–84; RESP 16–18; TEMP 36.4–36.6; O2SAT 94–98
[2023-04-06] MEDS: baclofen 10 mg Tablet 20 MG PO (00:41)
[2023-04-06] MEDS: oxyCODONE-APAP 5-325 mg Tablet 1 TAB PO (03:21)
[2023-04-06 05:58] LABS: Basophils % 0.1 %; Eosinophils # 0.1 10^3/uL (0.0-0.8); Eosinophils % 0.3 %; Hematocrit 32.2 % (36-47); Lymphocytes # 3.2 10^3/uL (0.8-4.8); Lymphocytes % 22.4 %; Mean Corpuscular HGB Conc 31.1 g/dL (30-55); Mean Platelet Volume 8.2 fL (7.4-10.4); Monocytes # 0.7 10^3/uL (0.2-0.9); Monocytes % 4.7 %; Neutrophils # 10.32 10^3/uL (1.8-7.7); Neutrophils % 71.7 %; Nucleated Red Blood Cells % 0 %; Platelet Count 442 10^3/cmm (157-399); Red Cell Distribution Width 15.2 % (12.1-15.1); White Blood Count 14.42 10^3/uL (3.29-11.43)
[2023-04-06 06:22] LABS: Alanine Aminotransferase 14 U/L (0-33); Albumin Level 3.1 g/dL (3.5-5.2); Alkaline Phosphatase 103 U/L (35-105); Anion Gap 17.5 (5-19); Aspartate Amino Transferase 14 U/L (0-32); Blood Urea Nitrogen 27 mg/dL (6-20); Calcium 8.7 mg/dL (8.5-10.5); Carbon Dioxide 19 mmol/L (22-29); Chloride 108 mmol/L (98-107); Creatinine Clr Calc Pharmacy 57.1115; Globulin 4.8 g/dL (1.3-4.6); Glomerular Filtration Rate 31.7 mL/min (90-130); Glucose 47 mg/dL (65-115); Magnesium 1.9 mg/dL (1.7-2.3); Osmolality Calculated 294 mOsm/kg (285-295); Phosphorus 3.9 mg/dL (2.5-4.5); Potassium 3.5 mmol/L (3.5-5.1); Sodium 141 mmol/L (136-145); Total Bilirubin 0.2 mg/dL (0.15-1.2); Total Protein 7.9 g/dL (6.6-8.7)
[2023-04-06 06:24] LABS: Glucose Point of Care 106 mg/dL (70-110)
[2023-04-06] MEDS: insulin glargine 100 units/1 mL 40 UNIT SUBCUT (09:29)
[2023-04-06] MEDS: potassium chloride ER 10 mEq Tablet PO (09:30)
[2023-04-06] MEDS: pantoprazole DR 40 mg Tablet PO (09:30)
[2023-04-06] MEDS: predniSONE 20 mg Tablet 40 MG PO (09:30)
[2023-04-06] MEDS: amlodipine 5 mg Tablet 10 MG PO (09:30)
[2023-04-06] MEDS: lipase-protease-amylase Capsule PO ×2 (09:30→12:41)
[2023-04-06] MEDS: hyDRALAzine 25 mg Tablet PO (09:30)
[2023-04-06] MEDS: carvedilol 6.25 mg Tablet PO (09:30)
[2023-04-06] MEDS: cloNIDine 0.1 mg Tablet PO (10:22)
[2023-04-06] MEDS: linezolid premix 600 MG/300 ML PREMIX 300 MG IV (10:23)
--- NOTE | 2023-04-06 11:58 | P.DS_ITS ---
Discharge Providers Date of Admission: 04/03/23 16:50 Date of Discharge: April 06, 2023 Attending Provider at Admission: Aguila Jaquez MD Attending Provider at Discharge: Aguila Jaquez MD Primary Care Provider: Jg Cassidy MD Diagnoses at Discharge Discharge Diagnosis (1) Lower extremity edema: Status: Resolved (2) Chronic pancreatitis: Status: Resolved (3) GERD (gastroesophageal reflux disease): Status: Acute (4) Essential hypertension: Status: Acute (5) Anemia: Status: Acute (6) Morbid obesity with BMI of 45.0-49.9, adult: Status: Acute (7) Chronic back pain: Status: Acute Qualifiers: Back pain laterality: bilateral Back pain location: thoracic back pain Qualified Code(s): M54.6 - Pain in thoracic spine; G89.29 - Other chronic pain (8) Multiple lung abscesses: Status: Acute (9) Septic embolism: Status: Acute (10) MRSA (methicillin resistant Staphylococcus aureus) septicemia: Status: Acute (11) Familial hypertriglyceridemia: Status: Acute (12) Diabetes: Status: Acute Qualifiers: Diabetes mellitus complication status: with ketoacidosis 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 Diabetes mellitus type: type 2 (13) ADRY (acute kidney injury): Status: Resolved (14) Rash: Status: Resolved (15) Hypertensive urgency: Status: Resolved (16) Vancomycin-induced erythroderma: Status: Resolved Reason for Visit Reason for Visit: rash, sob, back pain Hospital Course Hospital Course Michelle Morales is a 37 year old female with a past medical history of MRSA septicemia, concerning for multiple septic emboli with cavitation, currently PICC line in place, on IV vancomycin, type 2 diabetes mellitus, history of chronic pancreatitis, 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 due to concerns for allergic reaction, patient tells me that yesterday, she was receiving her vancomycin infusion, when her started to notice that she had a rash in bilateral lower extremities, on her chest, no lip swelling, no tongue swelling, no facial swelling, no fevers, no chills, no lightheadedness, no dizziness, she completed the vancomycin infusion.? Thereafter she continued to have lower extremity rash, which was pruritic, she also reports that she has been feeling more short of breath, she does have 1+ pitting edema bilateral extremities, she did not take her blood pressure medication this morning but did take it last night, her systolic blood pressure is 220, her diastolic is 150, denies any headache, blurry vision, no nausea, no vomiting, she does report that after receiving the vancomycin, her pruritus has improved and the rash has improved, the rash is primarily on both bilateral lower extremities, she has some spots on her hands, some spots on her chest, currently on room air, no calf pain, no calf swelling, she has been feeling more short of breath, but no sudden onset of shortness of breath, no hemoptysis Patient was admitted to [facility] for allergic reaction to vancomycin, possible vancomycin induced erythroderma, vancomycin was stopped, managed with prednisone, Benadryl as needed, no lip tongue swelling, no tongue swelling, no evidence of anaphylaxis, will be discharged on a prednisone burst, For hypertensive urgency, managed with p.o. medications, discharged on clonidine 0.1 twice daily, hydralazine 25 mg every 8 hours, follow-up primary care provider as outpatient Patient ADRY during hospitalization, possibly sided hypertensive urgency, possible associate with vancomycin toxicity, vancomycin level was 20.7 but this was around him vancomycin level, patient has robust urine output, creatinine is 1.6-1.8, continue to hydrate well hold Lasix for at least 48 hours until she sees primary care provider on Monday For MRSA bacteremia with septic emboli multiple lung abscesses, vancomycin has to be stopped, daptomycin unfortunately does not penetrate the lungs, patient is a self-pay so separate trolling start a reasonable option, discussed risks and benefits of p.o. Zyvox, she voiced understanding, all questions answered, agreed to proceed with p.o. Zyvox for 18 remaining days, spoke to infectious disease, they are agreeable, follow-up primary care provider on Monday Physical Exam Const: COMMON NORMALS: no acute distress and patient oriented x3 Resp: COMMON NORMALS: normal respiratory effort, No retractions, No use of accessory muscles and clear to auscultation bilaterally AUSCULTATION: clear to auscultation bilaterally Cardio: COMMON NORMALS: regular rate, regular rhythm, S1 normal heart sound present and S2 normal heart sound present RATE: regular rate RHYTHM: regular rhythm HEART SOUNDS: S1 normal heart sound present and S2 normal heart sound present GI: COMMON NORMALS: Normal to inspection, nondistended, normoactive bowel sounds present and non-tender Extremity: COMMON NORMALS: no pedal edema Neuro: COMMON NORMALS: patient oriented x3 Psych: COMMON NORMALS: mental status grossly normal Discharge Data Studies Completed and Pending Completed Studies During Hospitalization Category Date Time Status CT chest wo con [id number] Stat Cat Scan 04/03/23 16:27 Completed XR chest 1V portable [id number] Stat Exams 04/03/23 11:12 [place] [id number] Stat Ultrasound 04/03/23 16:16 Completed Pending at discharge Category Date Time Status Blood Culture Stat Lab 04/03/23 11:46 Results Urinalysis Routine Lab 04/03/23 19:28 Uncollected Radiology Impressions Venous Duplex 04/03/23 16:16 IMPRESSION: No evidence of deep vein thrombosis. Chest CT 04/03/23 16:27 IMPRESSION: 1. Redemonstrated numerous focal peripheral consolidations some of which demonstrate cavitation. This is suggestive of atypical fungal or bacterial pneumonia/abscesses versus septic emboli. 2. There is a moderate volume left pleural effusion. Laboratory Results WBC 14.42 10^3/uL (3.29-11.43) H 04/06/23 05:23 RBC 3.70 10^6/uL (3.85-5.65) L 04/06/23 05:23 Hgb 10.00 g/dL (11.27-16.99) L 04/06/23 05: Hct 32.2 % (36-47) L 04/06/23 05:23 MCV 87.0 fl (85-98) 04/06/23 05:23 MCH 27.0 pg (27-33) 04/06/23 05: MCHC 31.1 g/dL (30-55) 04/06/23 05: RDW 15.2 % (12.1-15.1) H 04/06/23 05:23 Plt Count 442 10^3/cmm (157-399) H 04/06/23 05:23 MPV 8.2 fL (7.4-10.4) 04/06/23 05: Neut % (Auto) 71.7 % 04/06/23 05:23 Lymph % (Auto) 22.4 % 04/06/23 05:23 [place] % (Auto) 4.7 % 04/06/23 05: Eos % (Auto) 0.3 % 04/06/23 05: Baso % (Auto) 0.1 % 04/06/23 05:23 Neut # (Auto) 10.32 10^3/uL (1.8-7.7) H 04/06/23 05:23 Lymph # (Auto) 3.2 10^3/uL (0.8-4.8) 04/06/23 05:23 [place] # (Auto) 0.7 10^3/uL (0.2-0.9) 04/06/23 05: Eos # (Auto) 0.1 10^3/uL (0.0-0.8) 04/06/23 05: Baso # (Auto) 0.0 10^3/uL (0.0-0.1) 04/06/23 05: Nucleated RBC % (auto) 0 % 04/06/23 05: Nucleated RBCs # 0.0 /100WBC 04/06/23 05:23 ESR 36 mm/hr (0-15) H 04/03/23 11:44 PT 14.80 SECONDS (12.1-14.9) 04/03/23 11:44 INR 1.12 (0.8-1.2) 04/03/23 11:44 D-Dimer 19.24 ug/mLFEU (0-0.59) H 04/03/23 11:44 Sodium 141 mmol/L (136-145) 04/06/23 05:23 Potassium 3.5 mmol/L (3.5-5.1) 04/06/23 05:23 Chloride 108 mmol/L (98-107) H 04/06/23 05:23 Carbon Dioxide 19 mmol/L (22-29) L 04/06/23 05:23 Anion Gap 17.5 (5-19) 04/06/23 05:23 BUN 27 mg/dL (6-20) H 04/06/23 05:23 Creatinine 1.8 mg/dL (0.5-0.9) H 04/06/23 05:23 GFR Calculation 31.7 mL/min (90-130) L 04/06/23 05:23 Glucose 47 mg/dL (65-115) L 04/06/23 05:23 POC Glucose 106 mg/dL (70-110) 04/06/23 06:09 Estimat Average Glucose 237 04/03/23 11:44 Hemoglobin A1c 9.9 % (4.0-6.0) H 04/03/23 11:44 Calculated Osmolality 294 mOsm/kg (285-295) 04/06/23 05:23 Lactic Acid 1.3 mmol/L (0.5-2.2) 04/03/23 11:44 Calcium 8.7 mg/dL (8.5-10.5) 04/06/23 05:23 Phosphorus 3.9 mg/dL (2.5-4.5) 04/06/23 05:23 Magnesium 1.9 mg/dL (1.7-2.3) 04/06/23 05:23 Iron 28 ug/dL (37-145) L 04/04/23 04:55 Ferritin 210 ng/mL (15-150) H 04/04/23 04:55 Total Bilirubin 0.2 mg/dL (0.15-1.2) 04/06/23 05:23 AST 14 U/L (0-32) 04/06/23 05:23 ALT 14 U/L (0-33) 04/06/23 05:23 Alkaline Phosphatase 103 U/L (35-105) 04/06/23 05:23 Troponin T Baseline 35 ng/L (0-10) H 04/03/23 17:33 Troponin T 120 Minute 33.13 ng/L (0-10) H 04/03/23 19:54 Delta Troponin T -1.87 ABS# (0-10) L 04/03/23 19:54 Troponin T Hi Sens 6Hr 34.65 ng/L (0-10) H 04/03/23 22:28 Troponin T Hi Sens 6Hr Delta -0.35 ng/L (0-12) L 04/03/23 22:28 C-Reactive Protein 27.8 mg/L (0.0-4.9) H 04/03/23 11:44 NT-Pro-B Natriuret Pep 2470 pg/mL (0-125) H 04/03/23 17:33 Total Protein 7.9 g/dL (6.6-8.7) 04/06/23 05:23 Albumin 3.1 g/dL (3.5-5.2) L 04/06/23 05:23 Globulin 4.8 g/dL (1.3-4.6) H 04/06/23 05:23 Triglycerides 244 mg/dL (0-150) H 04/03/23 19:54 Cholesterol 200 mg/dL (0-200) 04/03/23 19:54 LDL Cholesterol, Calc 111 mg/dL (50-129) 04/03/23 19:54 HDL Cholesterol 40 mg/dL (60-100) L 04/03/23 19:54 LDL/HDL Ratio 2.78 RATIO (0.00-3.22) 04/03/23 19:54 Cholesterol/HDL Ratio 5.00 mg/dL (0.0-4.40) H 04/03/23 19:54 Lipase 43 U/L (13-60) 04/03/23 11:44 Procalcitonin 0.05 ng/mL (0-0.5) 04/03/23 11:44 TSH 0.65 uIU/mL (0.27-4.20) 04/03/23 19:54 Ser , Semi-Qnt 1.00 mIU/mL 04/03/23 11:44 Urine Color Yellow (Yellow) 04/03/23 11:55 Urine Appearance Clear (CLEAR) 04/03/23 11:55 Urine pH 7 (5-7) 04/03/23 11:55 Ur Specific [place] 1.005 (1.005-1.030) 04/03/23 11:55 Urine Protein 3+ (Negative) H 04/03/23 11:55 Urine Glucose (UA) Norm (Normal) 04/03/23 11:55 Urine Ketones Negative (Negative) 04/03/23 11:55 Urine Blood 3+ (Negative) H 04/03/23 11:55 Urine Nitrate Negative (Negative) 04/03/23 11:55 Urine Bilirubin Neg (Negative) 04/03/23 11:55 Urine Urobilinogen Norm mg/dL (Negative) 04/03/23 11:55 Ur Leukocyte Esterase Trace (Negative) H 04/03/23 11:55 Urine RBC 5-10 /hpf (0-2) H 04/03/23 11:55 Urine WBC 5-10 /hpf (0-5) H 04/03/23 11:55 Ur Squamous Epith Cells 5-10 /hpf (0-5) H 04/03/23 11:55 Ur Transition Epith Cell Rare /hpf 04/03/23 11:55 Amorphous Sediment Not Reportable 04/03/23 11:55 Urine Bacteria Trace /hpf (NONE) 04/03/23 11:55 Hyaline Casts 0-4 /lpf H 04/03/23 11:55 Urine Mucus None /hpf 04/03/23 11:55 Vancomycin Trough Cancelled 04/03/23 11:44 Random Vancomycin 28.7 ug/mL (20.0-40.0) 04/03/23 11:44 Serum Ketones Negative (Negative) 04/03/23 11:44 Blood Type O Positive 04/03/23 17:33 Rho(D) Type Rh positive 04/03/23 17:33 Antibody Screen Negative 04/03/23 17:33 Crossmatch See Detail 04/03/23 17:33 Vitals Last Vital Signs Temp 97.6 F 04/06/23 04:00 Pulse 84 04/06/23 08:40 Resp 18 04/06/23 08:40 BP 192/94 04/06/23 10:22 Pulse Ox 98 04/06/23 08:40 O2 Del Method Room Air 04/06/23 08:40 O2 Flow Rate 2 04/04/23 04:00 Discharge Plan Discharge Patient Disposition: Home Condition: Stable Prescriptions: New clonidine HCl 0.1 mg Tablet 0.1 mg PO Q12H 30 Days Qty: 60 0RF hydralazine 25 mg Tablet 25 mg PO Q8H 30 Days Qty: 90 0RF Zyvox 600 mg tablet 600 mg PO BID 18 Days Qty: 36 0RF Continued ondansetron 4 mg tablet,disintegrating 4 mg PO TID PRN (Reason: Nausea And Vomiting) Qty: 60 0RF baclofen 20 mg tablet 20 mg PO BID 30 Days Qty: 60 1RF potassium chloride 10 mEq tablet extended release 10 meq PO DAILY oxycodone-acetaminophen 5-325 mg tablet 1 tab PO Q6H PRN (Reason: Pain) Multivitamins 28 mg iron- 800 mcg Tablet 1 tab PO QAM aspirin 325 mg Tablet 325 - 650 mg PO Q6H PRN (Reason: Pain) pantoprazole 40 mg tablet,delayed release (DR/EC) 40 mg PO DAILY Creon 12,000-38,000 -60,000 unit capsule,delayed release(DR/EC) See Rx Instructions .ROUTE .COMPLEX Rx Instructions: 1 to 3 caps po with each meal and 1 cap po with snacks Delta-8 Thc Gummies 8 mg PO DAILY PRN (Reason: pancreatitis/back pain) atorvastatin 40 mg Tablet 40 mg PO BEDTIME Qty: 30 0RF carvedilol 6.25 mg Tablet 6.25 mg PO BID Qty: 60 0RF fenofibrate 120 mg tablet 120 mg PO DAILY Qty: 30 0RF amlodipine 5 mg tablet 10 mg PO DAILY 30 Days Qty: 60 0RF Changed Humalog U-100 Insulin 100 unit/mL solution See Rx Instructions .ROUTE .COMPLEX Qty: 10 0RF Rx Instructions: Inject, subcu, 3 times daily, after meals, based on sign scale provided insulin glargine-yfgn 100 unit/mL solution 35 unit SUBCUT BID Qty: 10 0RF Discontinued furosemide [Lasix] 40 mg tablet 40 mg PO QAM 5 Days Qty: 5 0RF vancomycin 1.25 gram Recon Soln 1.25 g IV Q12H Rx Instructions: until 04/24/23 No Action doxycycline hyclate 100 mg capsule 100 mg PO BID 30 Days Qty: 60 1RF Rx Instructions: start after completing linezolid Discharge Orders: Discharge Order (Routine); Ordered 04/06/23 Ordered By: Aguila Jaquez Referrals: Reva Pedroza MD [Hospitalist] - 1 week (We have notified your physician's clinic of the need for a follow-up appointment to be scheduled. If you have not heard from them within the next 2 business days, please call them directly. ) Jg Cassidy MD [Primary Care Provider] - (We have notified your physician's clinic of the need for a follow-up appointment to be scheduled. If you have not heard from them within the next 2 business days, please call them directly. ) Discharge Diet: Diabetic Discharge Activity: Resume usual activity Patient Instructions: Clonidine (By mouth), Prednisone (By mouth), Hydralazine (By mouth), Linezolid (By mouth), MRSA (Methicillin-Resistant Staphylococcus Aureus) (DC), Chronic Hypertension (DC), Opioid Safety Activity Restrictions/Additional Instructions: -Take Lantus 35 units twice daily, monitor blood sugars closely -Please monitor your blood sugars closely -Monitor your blood sugars 3 times daily as after meals -Please record your blood sugars, and a blood sugar log -For your NovoLog -Please inject blood sugar after meals based on sliding scale provided -Do not inject insulin if you do not eat as hypoglycemia kills -This is a NovoLog sliding scale -Insulin sliding ?fingerstick? Insulin ?141-180?0 units/sq 181-220?2 units/sq ?221-260?4 units/sq ?261-300 6 units/sq ?301-350?8 units/sq ?351-400 10 units/sq ?401-450?12 units/sq >450? 14units/sq -If your blood sugar is greater than 500 go to the emergency room -If your blood sugar is less than 60 or at anytime you feel lightheaded or dizzy or diaphoretic or have chest palpitations check your blood sugar, and eat a hard candy or drink orange juice and go immediately to the emergency room -Remember hypoglycemia kills, so if his blood sugar is less than 60 we have to increase it by taking in a sugary meal such as a hard candy or orange juice and go to the emergency room -If you have any questions please call us where here to help ? I have discharged you on Zyvox 600 mg twice daily, for 18 remaining days, weekly CBCs and CMP, ? Please follow-up with primary care provider next week, ? Please see primary care provider for next week for blood pressure check, check kidney function creatinine on discharge 1.8, ? Discharge Attestations Time Spent in Discharge Care*: greater than 30 min Status at Discharge: Cognitive status at discharge: cognitively intact , Behavioral status at discharge: cooperative , Quality Metrics Clinical Quality Measures [ No reported AMI, CVA or VTE this stay] Coding Level of Care Code 95382 Total time (in minutes) for Discharge: 45 Diagnoses Lower extremity edema R60.0 Chronic pancreatitis K86.1 GERD (gastroesophageal reflux disease) K21.9 Essential hypertension I10 Anemia D64.9 Morbid obesity with BMI of 45.0-49.9, adult E66.01; Z68.42 Chronic bilateral thoracic back pain M54.6; G89.29 Back pain laterality: bilateral Back pain location: thoracic back pain Multiple lung abscesses J85.2 Septic embolism I76 MRSA (methicillin resistant Staphylococcus aureus) septicemia A41.02 Familial hypertriglyceridemia E78.1 Diabetes E11.9 Diabetes mellitus complication status: with ketoacidosis Diabetes mellitus fdc insulin use: with fdc use Diabetes mellitus type: type 2 ADRY (acute kidney injury) N17.9 Rash R21 Hypertensive urgency I16.0 Vancomycin-induced erythroderma L27.0; T36.8X5A
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
--- NOTE | 2023-04-06 12:36 | PC.NURSE ---
Verbal order received from Dr. Jaquez to discharge patient home with 2-0.1mg Clonidine and 3-Hydralazine 25 mg as all the pharmacy's are closed.
--- NOTE | 2023-04-06 12:46 | PC.NURSE ---
PICC line removed per orders. Tolerated well. Catheter intact.
--- NOTE | 2023-04-06 13:08 | PC.NURSE ---
Patient is A&Ox3. Respirations even and non-labored on room air. Dispensed Clonidine 0.1mg and Hydralazine [address] Jaquez's request with directions on how and when to take medications. Patient and verbalized understanding. Reviewed follow up appointments with patient and and both verbalized understanding. Patient and had no questions about discharge. Patient ambulated from the [facility] floor with a steady gait.
== END 2023-04-06 13:08 | disposition home or self-care (01) | DRG 606 ==
LOC: ER 15:35 → CSU 17:32 → ICU 22:01 → MEDSURG 04-05 13:20
PROVIDERS: Admitting Provider Family Medicine; Emergency Provider Family Medicine; PCP Family Medicine; Visit Provider Family Medicine
DX: L27.1 Localized skin eruption due to drugs and medicaments taken internally (principal); A41.02 Sepsis due to Methicillin resistant Staphylococcus aureus; J85.2 Abscess of lung without pneumonia; K86.1 Other chronic pancreatitis; Z68.41 Body mass index [BMI] 40.0-44.9, adult; N17.9 Acute kidney failure, unspecified; I76 Septic arterial embolism; T36.8X5A Adverse effect of other systemic antibiotics, initial encounter; D64.9 Anemia, unspecified; E11.9 Type 2 diabetes mellitus without complications; G89.29 Other chronic pain; M54.6 Pain in thoracic spine; E78.1 Pure hyperglyceridemia; E66.01 Morbid (severe) obesity due to excess calories; I16.0 Hypertensive urgency; I10 Essential (primary) hypertension; K21.9 Gastro-esophageal reflux disease without esophagitis; F32.A Depression, unspecified; F41.9 Anxiety disorder, unspecified; Z86.14 Personal history of Methicillin resistant Staphylococcus aureus infection; Z79.4 Long term (current) use of insulin; Z89.431 Acquired absence of right foot
CPT/HCPCS: 36415; 36416; 36430; 71045; 71250; 80053; 80061; 80202; 81001; 82009; 82274; 82728; 82962; 83036; 83540; 83605; 83690; 83735; 83880; 84100; 84145; 84443; 84478; 84484; 84702; 85025; 85378; 85610; 85651; 86140; 86850; 86900; 86920; 87040; 93005; 93970; 94640; 94664; 96361; 96372; 96374; 96375; 96376; 97161; 97165; 97530; 99285; J0360; J1100; J1200; J1650; J1756; J1815; J2020; J2270; J3490; J7512; J7613; P9040

== ENCOUNTER 2023-04-10 14:15 | Oncology outpatient (recurring) (ONCR) | payer OTHER, SELFPAY ==
[2023-03-22 10:28] VITALS: BP 147/88; PULSE 107; RESP 20; TEMP 36.9; O2SAT 90
[2023-03-22 11:20] LABS: Basophils # 0.1 10^3/uL (0.0-0.1); Basophils % 0.4 %; Eosinophils # 0.1 10^3/uL (0.0-0.8); Eosinophils % 0.8 %; Hematocrit 24.4 % (36-47); Lymphocytes % 14.2 %; Mean Corpuscular Hemoglobin 28.9 pg (27-33); Mean Corpuscular Volume 90.4 fl (85-98); Mean Platelet Volume 9.4 fL (7.4-10.4); Monocytes # 0.5 10^3/uL (0.2-0.9); Monocytes % 3.7 %; Neutrophils # 11.09 10^3/uL (1.8-7.7); Neutrophils % 78.2 %; Nucleated Red Blood Cells % 0 %; Platelet Count 196 10^3/cmm (157-399); Red Cell Distribution Width 13.2 % (12.1-15.1)
[2023-03-22 11:49] LABS: Vancomycin Trough 31.2 ug/mL (10-15)
--- NOTE | 2023-03-22 12:01 | PC.NURSE ---
Critical lab of vancomycin trough of 31.2 called to this nurse by Lolly in lab. Lab was ordered by outside provider, Dr. Ozuna. This nurse contacted lab and spoke to Melisa regarding this result needing to be relayed to Dr. Ozuna. Melisa stated that she would follow up regarding this.
[2023-03-22 13:31] LABS: Alanine Aminotransferase 15 U/L (0-33); Albumin Level 2.6 g/dL (3.5-5.2); Alkaline Phosphatase 136 U/L (35-105); Aspartate Amino Transferase 15 U/L (0-32); Globulin 4.4 g/dL (1.3-4.6); Glomerular Filtration Rate 80.7 mL/min (90-130); Total Bilirubin 0.2 mg/dL (0.15-1.2)
[2023-03-27] MEDS: alteplase 1 mg/mL SDV 2 mL 2 MG INTRACATH (16:36)
--- NOTE | 2023-03-27 17:25 | PC.NURSE ---
Patient scheduled today for PICC line dressing change. PICC line flushed without resistance but did not have blood return. This nurse called patient's primary care, Dr. Momo Hsieh, to notify him of this. Cathflo was ordered per Dr. Garcia. Blood return was achieved after 30 minutes with Cathflo. Patient was educated to check for blood return prior to any Vancomycin infusion and to call PCP if there is not any blood return. Patient verbalized understanding.
[2023-03-27 17:35] LABS: Basophils # 0.1 10^3/uL (0.0-0.1); Eosinophils # 0.2 10^3/uL (0.0-0.8); Eosinophils % 1.6 %; Hematocrit 23.8 % (36-47); Lymphocytes % 19.4 %; Mean Corpuscular HGB Conc 31.5 g/dL (30-55); Mean Corpuscular Hemoglobin 28.2 pg (27-33); Mean Corpuscular Volume 89.5 fl (85-98); Mean Platelet Volume 9.1 fL (7.4-10.4); Monocytes # 0.4 10^3/uL (0.2-0.9); Monocytes % 3.9 %; Neutrophils # 7.55 10^3/uL (1.8-7.7); Neutrophils % 73.3 %; Nucleated Red Blood Cells % 0 %; Platelet Count 377 10^3/cmm (157-399); Red Blood Count 2.66 10^6/uL (3.85-5.65); Red Cell Distribution Width 13.4 % (12.1-15.1); White Blood Count 10.29 10^3/uL (3.29-11.43)
[2023-03-27 17:54] LABS: Alanine Aminotransferase 13 U/L (0-33); Albumin Level 2.8 g/dL (3.5-5.2); Alkaline Phosphatase 111 U/L (35-105); Aspartate Amino Transferase 10 U/L (0-32); Glomerular Filtration Rate 62.4 mL/min (90-130); Total Bilirubin 0.2 mg/dL (0.15-1.2); Total Protein 6.8 g/dL (6.6-8.7)
[2023-03-27 17:58] LABS: Vancomycin Trough 19.2 ug/mL (10-15)
--- NOTE | 2023-03-28 08:52 | PC.NURSE ---
This nurse contacted Dr. Hsieh' nurse, Jihan, at [facility] regarding labs drawn on 03/27/23. Vancomycin trough of 19.2 and hemoglobin of 7.5 relayed to Jihan. Jihan stated she would give these labs to Dr. Hsieh for review and follow up.
== END 2023-04-13 23:59 | disposition home or self-care (01) ==
PROVIDERS: PCP Family Medicine Adult Medicine; Visit Provider Student in an Organized Health Care Education/Training Program
DX: Z53.9 Procedure and treatment not carried out, unspecified reason (principal)
CPT/HCPCS: 36415; 36592; 80076; 80202; 82565; 85025; 96374; J1642; J2997

== ENCOUNTER → 2023-04-20 12:34 | Outpatient (BNVA) | payer OTHER, SELFPAY | PROVIDERS: PCP Family Medicine; Visit Provider Student in an Organized Health Care Education/Training Program | DX: J85.2 Abscess of lung without pneumonia (principal); I76 Septic arterial embolism; D64.9 Anemia, unspecified | CPT/HCPCS: 36415; 80053; 82728; 83540; 83550; 85025 ==

== ENCOUNTER 2023-05-11 22:20 | Emergency (ER) | payer OTHER, SELFPAY ==
[2023-05-11 22:24] VITALS: BP 194/108; PULSE 109; RESP 20; TEMP 36.7; O2SAT 98; BMI 39.1
[2023-05-12] MEDS: ondansetron 2 mg/ML SDV 2 mL 4 MG IVP (00:16)
[2023-05-12] MEDS: morphine 4 mg/mL SDV 1 mL IVP (00:17)
[2023-05-12 00:19] LABS: Basophils # 0.1 10^3/uL (0.0-0.1); Basophils % 0.6 %; Eosinophils # 0.1 10^3/uL (0.0-0.8); Eosinophils % 0.9 %; Hematocrit 33.7 % (36-47); Lymphocytes # 3.1 10^3/uL (0.8-4.8); Lymphocytes % 21.5 %; Mean Corpuscular HGB Conc 30.9 g/dL (30-55); Mean Corpuscular Volume 90.8 fl (85-98); Mean Platelet Volume 8.5 fL (7.4-10.4); Monocytes # 0.6 10^3/uL (0.2-0.9); Monocytes % 3.9 %; Neutrophils # 10.29 10^3/uL (1.8-7.7); Neutrophils % 72.5 %; Nucleated Red Blood Cells % 0 %; Platelet Count 513 10^3/cmm (157-399); Red Blood Count 3.71 10^6/uL (3.85-5.65); Red Cell Distribution Width 16.6 % (12.1-15.1)
[2023-05-12 00:35] LABS: Alanine Aminotransferase 10 U/L (0-33); Albumin Level 3.4 g/dL (3.5-5.2); Alkaline Phosphatase 97 U/L (35-105); Anion Gap 17.4 (5-19); Aspartate Amino Transferase 11 U/L (0-32); Blood Urea Nitrogen 22 mg/dL (6-20); Calcium 9.2 mg/dL (8.5-10.5); Carbon Dioxide 19 mmol/L (22-29); Chloride 101 mmol/L (98-107); Globulin 3.7 g/dL (1.3-4.6); Glomerular Filtration Rate 55.9 mL/min (90-130); Glucose 220 mg/dL (65-115); Lipase 23 U/L (13-60); Osmolality Calculated 286 mOsm/kg (285-295); Potassium 4.4 mmol/L (3.5-5.1); Sodium 133 mmol/L (136-145); Total Bilirubin 0.2 mg/dL (0.15-1.2); Total Protein 7.1 g/dL (6.6-8.7)
--- NOTE | 2023-05-12 00:40 | CTR_ITS ---
PROCEDURE INFORMATION: Exam: CT Abdomen And Pelvis With Contrast Exam date and time: 05/12/2023 12:52 AM Age: 37 years old Clinical indication: Abdominal pain; Flank; Left; Additional info: Severe abd pain TECHNIQUE: Imaging protocol: Computed tomography of the abdomen and pelvis with contrast. Radiation optimization: All CT scans at this facility use at least one of these dose optimization techniques: automated exposure control; mA and/or kV adjustment per patient size (includes targeted exams where dose is matched to clinical indication); or iterative reconstruction. Contrast material: OMNI 350; Contrast volume: 100 ml; Contrast route: INTRAVENOUS (IV); REPORTING DATA: Count of CT and Cardiac NM exams in prior 12 months: This patient has received 7 known CTs and 0 known cardiac nuclear medicine studies in the 12 months prior to the current study. COMPARISON: CT chest abdpel w/*[id number] 03/11/2023 2:56 AM RADIATION DOSE METRICS: Total DLP (mGy-cm): 1308.54 FINDINGS: Pleural spaces: Small left pleural effusion, decreased from 04/03/2023 . Irregular opacity in the left lower lobe with central low attenuation or cavitation, decreased in size from 04/03/2023. Liver: Hepatomegaly. Gallbladder and bile ducts: No calcified stones. No biliary ductal dilation. No pericholecystic fluid. Pancreas: Unremarkable. No duct dilation. Spleen: Unremarkable. Adrenal glands: Unremarkable. Kidneys and ureters: No hydronephrosis or hydroureter. No renal or ureteral calculi. Stomach and bowel: No bowel obstruction. Probable duodenal diverticulum. Appendix: Appendix is normal. Intraperitoneal space: Unremarkable. No free air. No significant fluid collection. Vasculature: No abdominal aortic aneurysm. Lymph nodes: No enlarged lymph nodes. Urinary bladder: Unremarkable as visualized. Reproductive: IUD in the uterus. Corpus luteum in the right ovary. Simple appearing cyst in the left ovary measuring approximately 2.6 cm. Bones/joints: Somewhat limited evaluation due to streak artifact from spinal fusion hardware and patient arm positioning. Thoracolumbar spinal fusion hardware. Hardware is intact. No acute fracture. Soft tissues: Unremarkable. CT/CT abdomen pelvis w con* [id number] IMPRESSION: 1. Somewhat limited evaluation due to artifact. No acute abnormality in the abdomen/pelvis. 2. Small left pleural effusion, decreased from 04/03/2023. Irregular opacity in the peripheral left lung with central lucency/cavitation, also appears decreased in size 3
--- NOTE | 2023-05-12 00:41 | W.ED.ABDPA2 ---
HPI - Abdominal Pain General: Chief Complaint: Abdominal Pain Stated Complaint: severe abd and back pain vomit Time Seen by Provider: 05/11/23 23:14 History of Present Illness: 37-year-old female with history of chronic pancreatitis and chronic abdominal pain presents emergency room with increased pain within the past few weeks patient described the pain as sharp sensation mostly left lower upper quadrant with severity of 7 out of 10. Is nonradiating. Denies any fever, chills, dysuria, hematuria urine frequency. Patient revealed some nausea, vomiting and diarrhea within the past few days as well. Bloody stool. No known sick contact recent foreign travel. Associated Symptoms: Reports diarrhea, nausea and vomiting; Denies bloating, chills, coffee ground emesis, constipation, dysuria, fever(s) and heartburn Review of Systems General: Reports: 10 or more systems reviewed and unremarkable except in HPI and below Const: Denies: fever(s), chills, body aches, change in appetite, change in weight, fatigue, malaise, night sweats, diaphoresis, change in sleep pattern or daytime sleepiness Eyes: Denies: change in vision, blurry vision, blind spots, photophobia, eye discomfort, eye discharge, eye redness, yellow eyes, dry eyes, increased production of tears, floaters, seeing flashes or decreased night vision GI: Reports: abdominal pain, nausea, vomiting and diarrhea; Denies: coffee ground emesis, dysphagia, heartburn, early satiety, constipation or bloating : Denies: flank pain, difficulty voiding, dysuria, urinary frequency, urinary urgency, urinary hesitancy, dribbling, nocturia or oliguria PFSH ED PFSH: Medical History Decubitus ulcer debridement and removed History of amputation of toe x3 Morbid obesity with BMI of 45.0-49.9, adult Amputation toe Familial hypertriglyceridemia Hypoxia Hyponatremia Hypomagnesemia Diabetes Scoliosis Chronic back pain Chronic pancreatitis Surgical History Hx of spinal surgery Family History Mother Cancer ovarian Father Cancer skin Other Aneurysm Autoimmune disease Bleeding disorder Chronic kidney disease (CKD) Dementia Diabetes Hyperlipidemia Hypertension Liver disease Stroke Denies family history of CAD (coronary artery disease) Psychiatric illness Lung disease Social History Smoking and tobacco/nicotine status: never used tobacco/nicotine Alcohol intake: never Substance/Drug Use: current Substance/Drug use frequency: few times a month Other substance/drug use details: SADIE jaffe Household members: spouse Marital status: Current occupational status: unemployed Physical Exam Const: COMMON NORMALS: no acute distress, average body habitus, patient oriented x3, no limitations, healthy appearing, alert and well nourished Chest: COMMONS NORMALS: normal inspection of the chest, normal palpation of entire chest wall, normal inspection of the breasts and normal palpation of the breasts Breast/axilla inspection: Yes normal inspection of the breasts BREAST/AXILLA PALPATION: Yes normal palpation of the breasts Resp: COMMON NORMALS: normal respiratory effort, No retractions, No use of accessory muscles, clear to auscultation bilaterally and percussion normal AUSCULTATION: clear to auscultation bilaterally PERCUSSION: percussion normal GI: COMMON NORMALS: Normal to inspection, nondistended, normoactive bowel sounds present, Soft to palpation, non-tender, No hepatosplenomegaly present, no masses and no bruits INSPECTION: Yes normal to inspection AUSCULTATION: Yes normoactive bowel sounds PALPATION: Yes Soft to palpation, Yes Tenderness to palpation present (GI) Details: LUQ and Yes No hepatosplenomegaly present : COMMON NORMALS: Yes no CVA tenderness BLADDER/KIDNEY EXAM: Yes no CVA tenderness Back/Pelvis: COMMON NORMALS: no CVA tenderness, thoracic and lumbar spine normal to inspection, no thoracic nor lumbar tenderness, thoraco-lumbar ROM normal and straight leg raise negative bilaterally Extremity: COMMON NORMALS: normal to inspection, full ROM, capillary refill normal, no joint enlargement, no clubbing, cyanosis or edema, no calf tenderness and no pedal edema Neuro: COMMON NORMALS: patient oriented x3 SENSORIUM/ORIENTATION: Yes alert Skin: COMMON NORMALS: no rashes or lesions noted, no wounds, turgor normal, no jaundice, no petechiae and no mottling GENERAL SKIN EXAM: no rashes or lesions noted and turgor normal Course Vital Signs: Vital signs: Vital Signs Temperature 98.1 F 05/11/23 22:24 Pulse Rate 109 H 05/11/23 22:24 Respiratory Rate 20 H 05/11/23 22:24 Blood Pressure 194/108 05/11/23 22:24 Pulse Oximetry 98 05/11/23 22:24 MDM - Abdominal Pain Medical Decision Making Patient made comfortable emergency room had extensive workup including CBC, CMP, lipase, UA and CT scan. I discussed the CT finding with the patient and . Follow-up PCP recommended for further evaluation and treatment. Differential Diagnosis Likely abdominal pain, acute appendicitis, calculus of kidney, constipation, diverticulitis, endometriosis, gastroenteritis, pancreatitis and small bowel obstruction Lab Data 05/12/23 00:10 05/12/23 00:10 Labs/Radiology: Radiology Impressions Abdomen/Pelvis CT 05/12/23 00:40 IMPRESSION: 1. Somewhat limited evaluation due to artifact. No acute abnormality in the abdomen/pelvis. 2. Small left pleural effusion, decreased from 04/03/2023. Irregular opacity in the peripheral left lung with central lucency/cavitation, also appears decreased in size 3 Laboratory Results WBC 14.20 10^3/uL (3.29-11.43) H 05/12/23 00:10 RBC 3.71 10^6/uL (3.85-5.65) L 05/12/23 00:10 Hgb 10.40 g/dL (11.27-16.99) L 05/12/23 00:10 Hct 33.7 % (36-47) L 05/12/23 00:10 MCV 90.8 fl (85-98) 05/12/23 00:10 MCH 28.0 pg (27-33) 05/12/23 00:10 MCHC 30.9 g/dL (30-55) 05/12/23 00:10 RDW 16.6 % (12.1-15.1) H 05/12/23 00:10 Plt Count 513 10^3/cmm (157-399) H 05/12/23 00:10 MPV 8.5 fL (7.4-10.4) 05/12/23 00:10 Neut % (Auto) 72.5 % 05/12/23 00:10 Lymph % (Auto) 21.5 % 05/12/23 00:10 [place] % (Auto) 3.9 % 05/12/23 00:10 Eos % (Auto) 0.9 % 05/12/23 00:10 Baso % (Auto) 0.6 % 05/12/23 00:10 Neut # (Auto) 10.29 10^3/uL (1.8-7.7) H 05/12/23 00:10 Lymph # (Auto) 3.1 10^3/uL (0.8-4.8) 05/12/23 00:10 [place] # (Auto) 0.6 10^3/uL (0.2-0.9) 05/12/23 00:10 Eos # (Auto) 0.1 10^3/uL (0.0-0.8) 05/12/23 00:10 Baso # (Auto) 0.1 10^3/uL (0.0-0.1) 05/12/23 00:10 Nucleated RBC % (auto) 0 % 05/12/23 00:10 Nucleated RBCs # 0.0 /100WBC 05/12/23 00:10 Sodium 133 mmol/L (136-145) L 05/12/23 00:10 Potassium 4.4 mmol/L (3.5-5.1) 05/12/23 00:10 Chloride 101 mmol/L (98-107) 05/12/23 00:10 Carbon Dioxide 19 mmol/L (22-29) L 05/12/23 00:10 Anion Gap 17.4 (5-19) 05/12/23 00:10 BUN 22 mg/dL (6-20) H 05/12/23 00:10 Creatinine 1.1 mg/dL (0.5-0.9) H 05/12/23 00:10 GFR Calculation 55.9 mL/min (90-130) L 05/12/23 00:10 Glucose 220 mg/dL (65-115) H 05/12/23 00:10 Calculated Osmolality 286 mOsm/kg (285-295) 05/12/23 00:10 Calcium 9.2 mg/dL (8.5-10.5) 05/12/23 00:10 Total Bilirubin 0.2 mg/dL (0.15-1.2) 05/12/23 00:10 AST 11 U/L (0-32) 05/12/23 00:10 ALT 10 U/L (0-33) 05/12/23 00:10 Alkaline Phosphatase 97 U/L (35-105) 05/12/23 00:10 Total Protein 7.1 g/dL (6.6-8.7) 05/12/23 00:10 Albumin 3.4 g/dL (3.5-5.2) L 05/12/23 00:10 Globulin 3.7 g/dL (1.3-4.6) 05/12/23 00:10 Lipase 23 U/L (13-60) 05/12/23 00:10 Urine Color Light yellow (Yellow) 05/12/23 01:25 Urine Appearance Hazy (CLEAR) A 05/12/23 01:25 Urine pH 6 (5-7) 05/12/23 01:25 Ur Specific [place] 1.015 (1.005-1.030) 05/12/23 01:25 Urine Protein 3+ (Negative) H 05/12/23 01:25 Urine Glucose (UA) 1+ (Normal) H 05/12/23 01:25 Urine Ketones Negative (Negative) 05/12/23 01:25 Urine Blood Neg (Negative) 05/12/23 01:25 Urine Nitrate Negative (Negative) 05/12/23 01:25 Urine Bilirubin Neg (Negative) 05/12/23 01:25 Urine Urobilinogen Neg mg/dL (Negative) 05/12/23 01:25 Ur Leukocyte Esterase Trace (Negative) H 05/12/23 01:25 Urine RBC 0-4 /hpf (0-2) H 05/12/23 01:25 Urine WBC 15-25 /hpf (0-5) H 05/12/23 01:25 Ur Squamous Epith Cells 15-25 /hpf (0-5) H 05/12/23 01:25 Amorphous Sediment Not Reportable 05/12/23 01:25 Urine Bacteria 2+ /hpf (NONE) H 05/12/23 01:25 Urine Mucus 2+ /hpf 05/12/23 01:25 All radiology interpretation(s) finalized by discharge Discharge Plan Discharge Patient Disposition: Home Clinical Impression: Pleural effusion Abdominal pain Qualifiers: Abdominal location: left upper quadrant Qualified Code(s): R10.12 - Left upper quadrant pain Chronic pain Qualifiers: Chronic pain type: other chronic pain Qualified Code(s): G89.29 - Other chronic pain Condition: Stable Prescriptions: New Levaquin 500 mg PO 2XD Qty: 14 0RF tramadol 50 mg tablet 50 mg PO TID PRN (Reason: pain) Qty: 20 0RF No Action doxycycline hyclate 100 mg capsule 100 mg PO BID 30 Days Qty: 60 1RF Rx Instructions: start after completing linezolid ondansetron 4 mg tablet,disintegrating 4 mg PO TID PRN (Reason: Nausea And Vomiting) Qty: 60 0RF baclofen 20 mg tablet 20 mg PO BID 30 Days Qty: 60 1RF potassium chloride 10 mEq tablet extended release 10 meq PO DAILY oxycodone-acetaminophen 5-325 mg tablet 1 tab PO Q6H PRN (Reason: Pain) Multivitamins 28 mg iron- 800 mcg Tablet 1 tab PO QAM Humalog U-100 Insulin 100 unit/mL solution See Rx Instructions .ROUTE .COMPLEX Qty: 10 0RF Rx Instructions: Inject, subcu, 3 times daily, after meals, based on sign scale provided insulin glargine-yfgn 100 unit/mL solution 35 unit SUBCUT BID Qty: 10 0RF aspirin 325 mg Tablet 325 - 650 mg PO Q6H PRN (Reason: Pain) pantoprazole 40 mg tablet,delayed release (DR/EC) 40 mg PO DAILY Creon 12,000-38,000 -60,000 unit capsule,delayed release(DR/EC) See Rx Instructions .ROUTE .COMPLEX Rx Instructions: 1 to 3 caps po with each meal and 1 cap po with snacks Delta-8 Thc Gummies 8 mg PO DAILY PRN (Reason: pancreatitis/back pain) atorvastatin 40 mg Tablet 40 mg PO BEDTIME Qty: 30 0RF carvedilol 6.25 mg Tablet 6.25 mg PO BID Qty: 60 0RF fenofibrate 120 mg tablet 120 mg PO DAILY Qty: 30 0RF amlodipine 5 mg tablet 10 mg PO DAILY 30 Days Qty: 60 0RF Discharge Orders: Discharge ED (Routine); Ordered 05/12/23 Ordered By: David Bennett Referrals: Jg Cassidy MD [Primary Care Provider] - Discharge Diet: Advance as tolerated Discharge Activity: Resume usual activity Patient Instructions: Abdominal Pain (ED), Opioid Safety, Pain Management Coding Level of Care Code ED [employer] for [place] To
[2023-05-12] MEDS: iohexol 350 mg/mL 500 mL Btl (per mL) IV (01:01)
[2023-05-12] MEDS: sodium chloride 0.9% 1,000 ML 999 ML IV (01:16)
[2023-05-12] MEDS: metoclopramide 5 mg/mL SDV 2 mL 10 MG IVP (01:16)
[2023-05-12 01:38] LABS: Add Urine Microscopic? YES; Bilirubin Urine Neg (Negative); Blood Urine Neg (Negative); Glucose Urine UA 1+ (Normal); Ketones Urine Negative (Negative); Leukocyte Esterase Urine Trace (Negative); Nitrate Urine Negative (Negative); Protein Urine 3+ (Negative); Specific Gravity, Urine 1.015 (1.005-1.030); Urine Appearance Hazy (CLEAR); Urine Color Light yellow (Yellow); Urobilinogen Urine Neg (Negative); pH Urine 6 (5-7)
[2023-05-12 01:41] LABS: Bacteria Urine 2+ /hpf; Mucus Urine 2+ /hpf; RBC Urine 0-4 /hpf (0-2); Squamous Epithelial Cell Urine 15-25 /hpf (0-5); WBC Urine 15-25 /hpf (0-5)
[2023-05-12 01:42] LABS: Add Urine Culture? No
[2023-05-12] MEDS: ketorolac 30 mg/mL INJ IVP (03:23)
== END 2023-05-12 03:24 | disposition home or self-care (01) ==
PROVIDERS: Nurse Practitioner Family; Emergency Provider Family Medicine; PCP Family Medicine
DX: J90 Pleural effusion, not elsewhere classified (principal); R10.12 Left upper quadrant pain; G89.29 Other chronic pain; Z79.82 Long term (current) use of aspirin; Z79.4 Long term (current) use of insulin; E11.9 Type 2 diabetes mellitus without complications
CPT/HCPCS: 74177; 80053; 81001; 83690; 85025; 96374; 96375; 99285; J1885; J2270; J2405; J2765; J7030; Q9967